=== PATIENT | male | born 1945 | race Caucasian/White ===

== ENCOUNTER 2022-05-17 14:57 | Outpatient (RCR) | payer MEDICARE, OTHER, SELFPAY ==
[2022-05-17] MEDS: SODIUM CHLORIDE 0.9 % (FLUSH) 10 ML SYRINGE IVF (15:35)
[2022-05-17] MEDS: HEPARIN 500 UNIT/5 ML SYRINGE IVF (15:35)
== END 2022-11-13 23:59 | disposition home or self-care (01) ==
LOC: CCIC 14:57
PROVIDERS: Visit Provider Clinical Nurse Specialist
DX: C49.9 Malignant neoplasm of connective and soft tissue, unspecified (principal)
CPT/HCPCS: 99211; J1642

== ENCOUNTER 2024-01-15 06:57 | Day surgery (SDC) | payer MEDICARE, OTHER, SELFPAY ==
--- NOTE | 2024-01-15 07:00 | CRLHL7_ITS ---
For Patients: As a result of the Century Cures Act, medical imaging exams and procedure reports are released immediately into your electronic medical record. You may view this report before your referring provider. If you have questions, please contact your health care provider. Indication: Port placement, history of lung metastases Technique: Chest 1 view Comparison: None Findings/Impression: Cardiovascular and mediastinum: Normal heart size with aortic tortuosity and atherosclerotic calcification. Lungs and pleural space: Lungs are clear. No sign of infiltrate or mass. No sign of pleural effusion. No pneumothorax. Bones and soft tissues: No acute findings. Dictated by Saulo Santos MD @ 01/15/2024 8:28:56 AM (Electronically Signed)
[2024-01-15] MEDS: SODIUM CHLORIDE 0.9 % (FLUSH) 10 ML SYRINGE IVF ×2 (07:05→09:36)
[2024-01-15] MEDS: LACTATED RINGERS 1000 ML 1,000 ML 100 ML IV ×2 (07:05→09:37)
[2024-01-15 07:15] VITALS: BP 132/82; PULSE 67; RESP 16; TEMP 36.5; O2SAT 95; BMI 30.4
--- NOTE | 2024-01-15 08:03 | PM.GSCN ---
History of Present Illness Consult details Date Seen: 01/15/24 Consult date: 01/15/24 Narrative: The patient is a 78-year-old male who is here today for port placement. 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 He has developed recurrence in his lungs and lower extremities. He will be undergoing additional chemotherapy and port placement was requested. He does take Xarelto because of his IVC graft and has been off of this for 3 days. 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) ?C48.0 - Malignant neoplasm of retroperitoneum (ICD-10) Hypertension ?I10 - Essential (primary) hypertension (ICD-10) Surgical History (Updated 01/09/24 @ 12:51 by Corina Flores) History of sinus surgery ?Z98.890 - Other specified postprocedural states (ICD-10) History of vasectomy ?Z98.52 - Vasectomy status (ICD-10) History of colonoscopy ?Z98.890 - Other specified postprocedural states (ICD-10) History of right nephrectomy (04/01/22) ?Z90.5 - Acquired absence of kidney (ICD-10) History of superior vena cava filter placement ?Z95.828 - Presence of other vascular implants and grafts (ICD-10) Family History (Updated 01/09/24 @ 12:53 by Corina Flores) Father Heart disease High blood pressure Social History (Updated 01/13/24 @ 10:15 by Yany Olivarez ~ [facility]) Narrative: with 2 daughters and 2 grandsons. 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 What is your current living situation?: I presently have a place to live Problems where you live: no known problems In the past 12 months, utilities in danger of being shut off: no In past 12 months, lack of transportation kept you from medical appts, meetings, work, or getting things needed for daily living: no In the past 12 mos, have been you worried that your food would run out before you had money to buy more?: never true In the past 12 mos, the food you bought just didn't last and you didn't have money to buy more?: never true Smoking Status: Former smoker How often do you have a drink containing alcohol: never AUDIT-C Alcohol total score: 0 Non-prescribed substance use: denies use Caffeine: Yes How often does anyone, including family, friends and others, physically hurt you: never How often does anyone, including family, friends and others, insult or talk down to you: never How often does anyone, including family, friends and others, threaten you with harm: never How often does anyone, including family, friends and others, scream or curse at you: never Little interest or pleasure in doing things: not at all Feeling down, depressed, or hopeless: not at all Meds Home Medications and Allergies Home Medications ?Medication ?Instructions ?Recorded ?Confirmed ?Type amlodipine 2.5 mg tablet 2.5 mg PO QDAY 11/12/23 01/15/24 History atorvastatin 10 mg tablet 10 mg PO QDAY 11/12/23 01/15/24 History carvedilol 6.25 mg tablet 6.25 mg PO BID 11/12/23 01/15/24 History clonidine 0.2 mg/24 hr weekly 1 patch transdermal QWEEK 11/12/23 01/13/24 History transdermal patch rivaroxaban 20 mg tablet (Xarelto) 20 mg PO QDAY 11/12/23 01/15/24 History acetaminophen 500 mg tablet 500 mg PO Q6H PRN 01/13/24 01/15/24 History (Tylenol Extra Strength) inositol-choline qgv-zlyeojkod-ylq tab PO 01/13/24 01/13/24 History B complex and C 500 mg tablet (Lipo-Flavonoid) melatonin 3 mg capsule 3 mg PO QHS 01/13/24 01/15/24 History pantoprazole 40 mg tablet,delayed 40 mg PO QDAY 01/13/24 01/15/24 History release Allergies Allergy/AdvReac Type Severity Reaction Status Date / Time hayfever AdvReac Intermediate Sneezing Uncoded 01/13/24 10:34 Exam Narrative: Exam Narrative: General: No acute distress CV: Regular rate Chest: Right chest scar noted from prior port. Respiratory: Breathing nonlabored Const: Vital Signs, click to edit/add: Vital Signs - 24 hr 01/15/24 07:15 Temperature 97.7 F Pulse Rate 67 Respiratory Rate 16 Blood Pressure 132/82 Pulse Oximetry 95 Oxygen Delivery Me thod Room Air Results Labs Labs: All other labs normal. Imaging CT scan - chest: report reviewed Additional studies: PET-CT from [facility] on 01/15/2024 was reviewed. Patient is noted to have pulmonary nodules on both the right and left. Chest x-ray done this morning radiology read is pending, however obvious acute airspace disease noted. Progress Note:A&P Assessment and plan (1) History of pulmonary embolism: Status: Acute (2) Leiomyosarcoma: Status: Acute Plan The patient is a 78-year-old male here today for port placement. There are no contraindications to surgery. Risks and benefits were discussed with the patient. He signed informed consent and agreed to proceed.
--- NOTE | 2024-01-15 08:15 | CRLHL7_ITS ---
For Patients: As a result of the Century Cures Act, medical imaging exams and procedure reports are released immediately into your electronic medical record. You may view this report before your referring provider. If you have questions, please contact your health care provider. INDICATION: Port-A-Cath placement TECHNIQUE: Chest 1 view COMPARISON: 01/15/2024 FINDINGS: Placement of left IJ approach Port-A-Cath. The tip is in the distal SVC. No pneumothorax. No pleural effusion. Stable mediastinum. IMPRESSION: Port-A-Cath placement. No pneumothorax. Dictated by Gustavo Pérez MD @ 01/15/2024 1:21:01 PM (Electronically Signed)
--- NOTE | 2024-01-15 08:18 | CRLHL7_ITS ---
For Patients: As a result of the Century Cures Act, medical imaging exams and procedure reports are released immediately into your electronic medical record. You may view this report before your referring provider. If you have questions, please contact your health care provider. Indication: Port-A-Cath placement Technique: One fluoroscopic image of the upper chest. Fluoroscopic time 77.2 seconds. IMPRESSION: Fluoroscopic guidance for Port-A-Cath placement. Dictated by Gustavo Pérez MD @ 01/15/2024 1:22:48 PM (Electronically Signed)
--- NOTE | 2024-01-15 08:18 | PM.GSPRC ---
Operative Note Date of procedure: 01/15/24 Pre-op diagnosis: Recurrent metastatic leiomyosarcoma Post-op diagnosis: Same Type of Procedure: Left IJ port placement with ultrasound fluoroscopic guidance Indications: The patient is a 78-year-old male who previously underwent treatment for a retroperitoneal leiomyosarcoma. He has developed recurrence and chemotherapy is planned. Port placement was requested. He previously had a right IJ port placed at [facility]. Procedure Description: After discussing the risks and benefits of the procedure, the patient signed informed consent.? The operative site was marked and the patient was brought to the operating room and placed on the operating table in supine position.? Care was taken to pad the patient's pressure points.?? The patient was then given sedation by anesthesia.? Ultrasound was used to examine the patient's neck. The right internal jugular on the side of the patient's prior port was not visible. The patient did have a large left internal jugular vein.? The operative site was then prepped and draped in the usual sterile fashion.? A time-out was then performed. The patient's left internal jugular vein was visualized using ultrasound. Local anesthetic was injected into the skin overlying the vein. This was accessed percutaneously using ultrasound guidance. Using Seldinger technique, a guidewire was threaded through the needle. The guidewire that came with the kit went easily into the internal jugular vein, however would not pass into the brachiocephalic vein. This was seen with fluoroscopy. A Glidewire was then obtained and using fluoroscopy I was easily able to then pass the Glidewire down into the superior vena cava. A skin allison was made around the wire. Next, local anesthetic was injected into the skin below the clavicle and along the proposed tract to the neck incision. A skin incision was then made with a 15 blade and a pocket created in the subcutaneous tissue with cautery. A tunneler was then used to thread the catheter from the chest wall pocket to the neck incision. Once this was done fluoroscopy was again brought into the field. Over the wire the tract was dilated using fluoroscopy. The wire and the dilator were then removed leaving the sheath in the vein. Through this, the catheter was threaded. Using fluoroscopy, the catheter was positioned into the distal SVC. The catheter was noted to flush and aspirate easily. The catheter was then connected to the port. The port was placed in the pocket and secured in place with 2 0 Prolene sutures. It was noted to flush and aspirate easily. This was then locked with heparinized saline. The skin was closed with absorbable suture. Sterile dressings were applied. Instrument sponge and needle counts were correct at the end of the case. The patient was woken and taken to the PACU in stable condition. ? The patient tolerated the procedure well. Findings: Left IJ power port placed in the low SVC Anesthesia: MAC Surgeon: Rosalina Campbell MD Estimated blood loss (mL): 5 Condition: stable Disposition: same day
[2024-01-15] MEDS: CEFAZOLIN 2 GM INJ IVP (08:32)
[2024-01-15] MEDS: LIDOCAINE 1% MDV 20 ML INJECTION (08:45)
[2024-01-15] MEDS: BUPIVACAINE 0.5% 30 ML INJECTION (08:45)
--- NOTE | 2024-01-15 08:46 | W.ANESCHARGE ---
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
[2024-01-15] MEDS: 0.9% SODIUM CHL 50 ML VIAL INJECTION (09:03)
[2024-01-15] MEDS: HEPARIN 500 UNIT/5 ML SYRINGE IVF (09:03)
[2024-01-15 09:17] VITALS: BP 127/83; PULSE 73; RESP 16; TEMP 36.3; O2SAT 95
[2024-01-15 09:30] VITALS: BP 75/54; PULSE 64; RESP 16; O2SAT 95
[2024-01-15 09:35] VITALS: BP 89/64; PULSE 66; RESP 16; O2SAT 98
[2024-01-15 09:45] VITALS: BP 105/64; PULSE 59; RESP 16; O2SAT 94
[2024-01-15 10:00] VITALS: BP 111/66; PULSE 64; RESP 16; O2SAT 97
== END 2024-01-15 10:37 | disposition home or self-care (01) ==
PROVIDERS: PCP Internal Medicine; Visit Provider Surgery
PROC: (CPT 36561; principal; 2024-01-15 08:15)
DX: Z45.2 Encounter for adjustment and management of vascular access device (principal); C48.0 Malignant neoplasm of retroperitoneum
CPT/HCPCS: 36561; 00532; 71045; 76000; 76998; 99100; C1769; C1788; J0665; J0690; J1642; J2371; J2405; J2704; J2795; J3010; J7120

== ENCOUNTER 2024-03-25 12:50 | Outpatient (CLI) | payer MEDICARE, OTHER, SELFPAY ==
--- NOTE | 2024-03-25 13:00 | CRLHL7_ITS ---
For Patients: As a result of the Cures Act, medical imaging exams and procedure reports are released immediately into your electronic medical record. You may view this report before your referring provider. If you have questions, please contact your health care provider. INDICATION: Fever TECHNIQUE: Chest radiograph 2 views COMPARISON: 01/15/2024 FINDINGS: Mediastinum: The mediastinum is normal in appearance. The heart silhouette is normal in size and morphology. Left Port-A-Cath is noted without interval change. Lung: Both lungs are unremarkable in appearance. No sign of pleural effusion seen. No pneumothorax is identified. Bone and Soft tissue: Unremarkable for age. IMPRESSION: 1. No acute cardiopulmonary disease is seen. Dictated by Paul Santo MD @ 03/25/2024 7:49:48 PM Dictated by: Paul Santo MD @ 03/25/2024 19:49:50 (Electronically Signed)
--- NOTE | 2024-03-25 16:00 | PE_ITS ---
[facility] [address] [facility] [address] Phone:?[phone] Fax:?[phone] Referring Physician Information: Aleksandra Leavitt M.D. [address] [facility] [address] Phone:?[phone] Fax:?[phone] Patient:?Ryan Mccain D.O.B:?1945 Sex:?Male Phone:?[phone] [facility] MRN:?[id number] Exam Date:?03/25/2024 EXAM:?PET/CT EYES TO THIGHS, CANCER RESTAGING CLINICAL INFORMATION: Leiomyosarcoma, evaluate treatment response TECHNICAL INFORMATION: Helical acquisition of data was obtained from the orbits to the upper thighs with reconstruction of 3.75 mm thick images at 3.[address] data was used for attenuation correction. PET scanning was performed through the same anatomic range 60 minutes following administration of 14.5 mCi of 18-FDG delivered intravenously. The patient's glucose at the time of the injection was 108 mg/dL. PET, CT and PET/CT fusion images are interpreted using a computer viewing workstation. PET, CT and PET/CT fusion images were archived and saved in the patient's permanent medical record. COMPARISON: PET/CT 12/25/2023 INTERPRETATION: Mediastinal blood pool activity: 2.88 Background liver parenchymal uptake: 3.79 Head and Neck: There are no abnormal hypermetabolic foci within the head or neck. There is physiologic uptake in the intracranial soft tissues. Chest: Interval increase in size of the nodular opacity in the lingula measuring 2.3 x 1.9 cm (series 202 image 133), previously measuring 1.9 x 1.0 cm, with an SUV max of 9.95, previously 12.3. Although limited by motion artifact, there appears to be similar size of a nodule in the right upper lobe measuring 4 mm (series 202 image 106), previously measuring 3 to 4 mm, with an SUV max of 3.85. A 4 mm nodule in the right upper lobe (series 202 image 101) has increased in size from the comparison exam when it measured 2 to 3 mm. Similar small left upper lobe nodule measuring 3 mm (series 2 image 94) without significant radiotracer avidity. Diffuse groundglass opacities in the lungs. No FDG avid lymphadenopathy. Coronary artery atherosclerosis. Atherosclerosis of the thoracic aorta. No pericardial effusion. Abdomen and Pelvis: Redemonstrated postsurgical changes in the right retroperitoneal region with IVC graft reconstruction. Postsurgical changes of right nephrectomy. No definite findings to suggest local recurrence of disease. There is physiologic excretion of radiotracer in the urine and bowel. Aortoiliac atherosclerosis. Small amount of fluid in the dependent pelvis. The bladder is incompletely distended limiting its evaluation. Skeleton, Musculature, and Integument: Redemonstrated lesion in the left lateral thigh measuring roughly 4.5 x 2.6 cm, previously measuring 3.9 x 1.8 cm. There is central photopenia with peripheral FDG uptake and an SUV max of 15.69, previously 25. Redemonstrated intramuscular lesion in the left back paraspinal soft tissues measuring 3.3 x 2.8 cm (series 202 image 182), previously measuring approximately 2.3 x 2.5 cm. The lesion is centrally photopenic with peripheral FDG uptake and an SUV max of 13.37, previously 16.9 A small lesion in the right posterolateral chest wall measures 2.3 x 1.3 cm (series 202 image 168), previously measuring 2.0 x 1.4 cm, with an SUV max of 6.18. Lesion in the region of the right piriformis measures approximately 2.7 x 1.5 cm (series 202 image 240), previously measuring approximately 2.1 x 1.3 cm, with an SUV max of 11.23. No new lesions are identified. CONCLUSION: * Overall mixed response of previously described pulmonary nodules and intramuscular lesions as described below. * Interval increase in size of the dominant nodular opacity in the lingula but with interval decreased metabolic activity. A nodule in the right upper lobe is similar in size but now demonstrates mild FDG avidity. Slight interval increase in size of a right upper lobe nodule without associated radiotracer avidity. * Scattered FDG avid intramuscular lesions as described above. Several lesions have slightly increased in size but with decreased metabolic activity. Central photopenia of several of the lesions which likely reflects central necrosis. * No evidence of new hypermetabolic metastasis. Electronically signed on 03/29/2024 10:33:00 AM by Fred Doty D.O
--- NOTE | 2024-03-30 09:28 | W.ED.EKGINT ---
EKG Interpretation EKG Data Attestation: I personally reviewed and interpreted this ECG as follows: Date of EKG Tracin03/25/24 EKG interpretation date: 03/30/24 EKG interpretation time: 09:28 Prior EKG tracings: available for review Interpretation: EKG interpretation from above is noted. Indication was chemotherapeutic treatment, rhythm is sinus, with a ventricular rate of 81. Right bundle-branch block configuration is noted. With mild left axis deviation. QRS is prolonged at 0.132 milliseconds. QT is 402 milliseconds, QTC is 466 milliseconds. In comparison to old EKG from 04/30/2023 is done Assessment: Abnormal EKG with normal sinus rhythm, right bundle-branch block with left axis deviation, no appreciable changes from previous EKG noted
== END 2024-03-25 12:51 | disposition home or self-care (01) ==
LOC: RAD 12:50
PROVIDERS: PCP Internal Medicine; Visit Provider Internal Medicine Hematology & Oncology
DX: C49.3 Malignant neoplasm of connective and soft tissue of thorax (principal); R91.8 Other nonspecific abnormal finding of lung field; R50.9 Fever, unspecified; I95.9 Hypotension, unspecified
CPT/HCPCS: 36591; 71046; 78815; 80048; 81001; 85025; 87040; 93005; 93010; 96360; G0463; A9552; J7030

== ENCOUNTER 2024-05-24 07:45 | Outpatient (RCR) | payer MEDICARE, OTHER, SELFPAY ==
--- NOTE | 2024-01-14 11:35 | URNOTE ---
Prior auth is not requied for Gemcitabine (J9201), Docetaxel (J9171), Pegfilgrastim (J2506) or biosimilar, Fulphila (Q5108). Services are based on medical necessity and follow medicare guidelines.
[2024-01-26] MEDS: SODIUM CHLORIDE 0.9 % (FLUSH) 10 ML SYRINGE IVF (08:55)
[2024-01-26 09:07] LABS: Basophils Absolute Auto 0.02 K/uL (0.00-0.30); Basophils Percent Auto 0.3 % (0.0-3.0); Eosinophils Absolute Auto 0.15 K/uL (0.00-0.50); Eosinophils Percent Auto 2.2 % (0.0-7.0); Hematocrit 40.5 % (37.0-53.0); Hemoglobin* 13.6 gm/dL (13.5-17.5); Immature Granulocytes Abs Auto 0.03 K/uL (0.00-0.30); Immature Granulocytes Pct Auto 0.4 %; Lymphocytes Absolute Auto 1.35 K/uL (0.90-2.90); Mean Corpuscular HGB Conc 34 gm/dL (32-36); Mean Corpuscular Hemoglobin 30 pg (26-34); Mean Corpuscular Volume 88 fL (80-100); Monocytes Percent Auto 5.5 % (0.0-11.0); Neutrophils Absolute Auto 4.83 K/uL (1.7-7.0); Neutrophils Percent Auto 71.6 % (42.0-72.0); Platelet Count* 167 K/uL (140-440); RDW Coefficient of Variation % 12.7 % (11.5-15.5); Slide Review Reflex No; White Blood Count* 6.75 K/uL (4.50-11.00)
[2024-01-26 09:21] LABS: Albumin* 4.6 g/dL (3.3-5.0); Chloride* 103 mmol/L (96-114)
[2024-01-26 09:22] LABS: Sodium* 136 mmol/L (135-149)
[2024-01-26 09:24] LABS: Anion Gap 7 mEq/L (7-15); Carbon Dioxide* 26 mmol/L (20-32); Creatinine* 1.5 mg/dL (0.5-1.5); Est. Creatinine Clearance* 37.81; Estimated Glomerular Filt Rate 48 ml/min
[2024-01-26 09:25] LABS: Alanine Aminotransferase* 18 U/L (4-50); Alkaline Phosphatase* 66 U/L (40-150); Aspartate Amino Transferase* 19 U/L (12-35); Bilirubin Total* 0.7 mg/dL (0.1-1.5); Blood Urea Nitrogen* 18 mg/dL (7-30); Calcium* 9.3 mg/dL (8.4-10.6); Glucose* 121 mg/dL (60-115)
[2024-01-26 10:27] VITALS: BP 153/70; PULSE 68; RESP 16; TEMP 36.7; O2SAT 96
[2024-01-26] MEDS: 0.9 % SODIUM CHLORIDE 250 ml IV (10:30)
[2024-01-26] MEDS: ONDANSETRON 2 MG/ML inj 8 MG IVP (10:31)
[2024-01-26] MEDS: dexAMETHasone 10 MG in 0.9 % SODIUM CHLORIDE 100 ml 100 ML 404 MG IVPB (10:34)
[2024-01-26] MEDS: HEPARIN 500 UNIT/5 ML SYRINGE IVF (13:00)
--- NOTE | 2024-01-26 14:55 | PC.SOCIAL ---
Social work: Met with pt at his request for resources for transportation. Pt states he drives but his , Annmarie, does not. He is planning to drive to and from the [facility] appointments, but if he is unable to drive, he is interested in other options. Discussed the private pay options including the [employer], [facility] [employer] and the [facility]. Suggested pt can call his [email or web address] insurance customer service to see if they provide Medical Transportation. When insurance covers the transportation they sometimes contract with other transport agencies that are not an option for private pay in this area. Emailed the transportation list to pt who was appreciative of information provided. Pt's distress thermometer score was 1 with no difficulties indicated. Provided pt with contact information for this social services technician in case there are additional concerns or resource needs in the future.
--- NOTE | 2024-01-27 11:35 | ONC.NURNOTE ---
New treatment start teaching done Friday01/26/24 with patient and : reviewed possible side effects of taxotere and Gemzar, self care at home, after hours management, ER with fever over 100.5, reviewed contents of chemotherapy information binder, discussed SS referral done for today for transportation help reviewed other supportive care options- dietitian and CRP- patient denies need now reviewed chemo schedule and home antiemetics and post treatment dexamethasone chemo schedule provided questions addressed about fatigue and taste changes consents and HELEN reviewed and signed
[2024-02-02 08:47] VITALS: BP 129/76; PULSE 79; RESP 16; TEMP 36.2; O2SAT 97
[2024-02-02] MEDS: SODIUM CHLORIDE 0.9 % (FLUSH) 10 ML SYRINGE IVF (09:00)
[2024-02-02 09:12] LABS: Eosinophils Absolute Auto 0.06 K/uL (0.00-0.50); Eosinophils Percent Auto 1.2 % (0.0-7.0); Hematocrit 36.4 % (37.0-53.0); Hemoglobin* 12.3 gm/dL (13.5-17.5); Immature Granulocytes Abs Auto 0.02 K/uL (0.00-0.30); Immature Granulocytes Pct Auto 0.4 %; Lymphocytes Absolute Auto 1.07 K/uL (0.90-2.90); Lymphocytes Percent Auto 21.2 % (20-44); Mean Corpuscular HGB Conc 34 gm/dL (32-36); Mean Corpuscular Hemoglobin 30 pg (26-34); Mean Corpuscular Volume 88 fL (80-100); Monocytes Percent Auto 6.7 % (0.0-11.0); Neutrophils Absolute Auto 3.56 K/uL (1.7-7.0); Neutrophils Percent Auto 70.5 % (42.0-72.0); Platelet Count* 119 K/uL (140-440); RDW Coefficient of Variation % 12.3 % (11.5-15.5); Red Blood Count 4.12 m/uL (4.30-5.90); White Blood Count* 5.05 K/uL (4.50-11.00)
[2024-02-02 09:20] LABS: Slide Review Reflex No
[2024-02-02 09:25] LABS: Chloride* 104 mmol/L (96-114); Sodium* 137 mmol/L (135-149)
[2024-02-02 09:27] LABS: Creatinine* 1.7 mg/dL (0.5-1.5); Est. Creatinine Clearance* 33.36; Estimated Glomerular Filt Rate 41 ml/min
[2024-02-02 09:28] LABS: Alanine Aminotransferase* 31 U/L (4-50); Alkaline Phosphatase* 64 U/L (40-150); Anion Gap 9 mEq/L (7-15); Aspartate Amino Transferase* 24 U/L (12-35); Bilirubin Total* 0.6 mg/dL (0.1-1.5); Blood Urea Nitrogen* 21 mg/dL (7-30); Carbon Dioxide* 24 mmol/L (20-32); Glucose* 104 mg/dL (60-115); Total Protein* 6.7 g/dL (6.0-8.3)
[2024-02-02] MEDS: ONDANSETRON 2 MG/ML inj 8 MG IVP (10:37)
[2024-02-02] MEDS: 0.9 % SODIUM CHLORIDE 500 ML IV (10:37)
[2024-02-02] MEDS: dexAMETHasone 10 MG in 0.9 % SODIUM CHLORIDE 100 ml 100 ML 404 MG IVPB (10:41)
[2024-02-02] MEDS: HEPARIN 500 UNIT/5 ML SYRINGE IVF (14:40)
--- NOTE | 2024-02-02 15:45 | ONC.NURNOTE ---
Patient in clinic today for C1D8 Gemzar/Taxotere. Patient's lab results showed creatinine at 1.7 today. Up from 1.5 last week. Patient only has 1 kidney. Reports he is urinating regularly. No swelling in his lower extremities and weight is stable. RN spoke with Dr. Leavitt who would like patient to have and extra 500 cc of IVF today and would like patient to have a CBC and CMP checked next week. 500 cc administered and patient scheduled for labs on 02/08.
[2024-02-03 14:38] VITALS: BP 142/73; PULSE 75; RESP 16; TEMP 36.6; O2SAT 98
[2024-02-03] MEDS: PEGFILGRASTIM-JMDB (Fulphila) 6 MG/0.6 ML SUBCUT (14:43)
[2024-02-09 11:04] LABS: Basophils Percent Auto 0.1 % (0.0-3.0); Eosinophils Percent Auto 0.8 % (0.0-7.0); Hemoglobin* 13.3 gm/dL (13.5-17.5); Lymphocytes Percent Auto 11.9 % (20-44); Mean Corpuscular HGB Conc 34 gm/dL (32-36); Mean Corpuscular Hemoglobin 30 pg (26-34); Mean Corpuscular Volume 88 fL (80-100); Monocytes Percent Auto 9.6 % (0.0-11.0); Neutrophils Percent Auto 70.6 % (42.0-72.0); Platelet Count* 60 K/uL (140-440); RDW Coefficient of Variation % 12.6 % (11.5-15.5); Red Blood Count 4.44 m/uL (4.30-5.90)
[2024-02-09 11:12] LABS: Slide Review Reflex Yes
[2024-02-09] MEDS: SODIUM CHLORIDE 0.9 % (FLUSH) 10 ML SYRINGE IVF (11:12)
[2024-02-09] MEDS: HEPARIN 500 UNIT/5 ML SYRINGE IVF (11:12)
[2024-02-09 11:16] LABS: Albumin* 3.8 g/dL (3.3-5.0); Chloride* 102 mmol/L (96-114); Potassium* 3.9 mmol/L (3.6-5.1); Sodium* 134 mmol/L (135-149)
[2024-02-09 11:19] LABS: Alanine Aminotransferase* 25 U/L (4-50); Alkaline Phosphatase* 98 U/L (40-150); Anion Gap 6 mEq/L (7-15); Aspartate Amino Transferase* 18 U/L (12-35); Bilirubin Total* 0.5 mg/dL (0.1-1.5); Blood Urea Nitrogen* 24 mg/dL (7-30); Calcium* 8.9 mg/dL (8.4-10.6); Carbon Dioxide* 26 mmol/L (20-32); Creatinine* 1.5 mg/dL (0.5-1.5); Est. Creatinine Clearance* 37.81; Estimated Glomerular Filt Rate 48 ml/min; Glucose* 133 mg/dL (60-115); Total Protein* 6.2 g/dL (6.0-8.3)
[2024-02-09 11:32] LABS: Slide Review Acceptable Review (Acceptable)
[2024-02-16 09:02] LABS: Basophils Percent Auto 1.4 % (0.0-3.0); Eosinophils Percent Auto 0.6 % (0.0-7.0); Hematocrit 36.1 % (37.0-53.0); Immature Granulocytes Pct Auto 3.9 %; Mean Corpuscular HGB Conc 33 gm/dL (32-36); Mean Corpuscular Hemoglobin 30 pg (26-34); Mean Corpuscular Volume 91 fL (80-100); Monocytes Percent Auto 5.8 % (0.0-11.0); Neutrophils Percent Auto 77.3 % (42.0-72.0); Platelet Count* 309 K/uL (140-440); RDW Coefficient of Variation % 14.2 % (11.5-15.5); Red Blood Count 3.98 m/uL (4.30-5.90); White Blood Count* 14.04 K/uL (4.50-11.00)
[2024-02-16 09:06] LABS: Slide Review Reflex No
[2024-02-16 09:29] LABS: Albumin* 3.7 g/dL (3.3-5.0); Chloride* 104 mmol/L (96-114); Potassium* 3.6 mmol/L (3.6-5.1); Sodium* 135 mmol/L (135-149)
[2024-02-16 09:32] LABS: Alanine Aminotransferase* 24 U/L (4-50); Alkaline Phosphatase* 102 U/L (40-150); Aspartate Amino Transferase* 23 U/L (12-35); Bilirubin Total* 0.5 mg/dL (0.1-1.5); Blood Urea Nitrogen* 16 mg/dL (7-30); Calcium* 8.4 mg/dL (8.4-10.6); Glucose* 107 mg/dL (60-115); Total Protein* 6.2 g/dL (6.0-8.3)
[2024-02-16 09:46] LABS: Anion Gap 7 mEq/L (7-15); Carbon Dioxide* 24 mmol/L (20-32); Creatinine* 1.4 mg/dL (0.5-1.5); Est. Creatinine Clearance* 39.05; Estimated Glomerular Filt Rate 52 ml/min
[2024-02-16] MEDS: ONDANSETRON 2 MG/ML inj 8 MG IVP (10:17)
[2024-02-16] MEDS: SODIUM CHLORIDE 0.9 % (FLUSH) 10 ML SYRINGE IVF ×2 (10:17→12:29)
[2024-02-16] MEDS: 0.9 % SODIUM CHLORIDE 250 ml IV (10:17)
[2024-02-16] MEDS: dexAMETHasone 10 MG in 0.9 % SODIUM CHLORIDE 100 ml 100 ML 404 MG IVPB (10:26)
[2024-02-16] MEDS: HEPARIN 500 UNIT/5 ML SYRINGE IVF (12:29)
[2024-02-23 08:51] VITALS: BP 130/75; PULSE 97; RESP 14; TEMP 36.1; O2SAT 97
[2024-02-23 09:21] LABS: Basophils Percent Auto 0.5 % (0.0-3.0); Eosinophils Percent Auto 2.3 % (0.0-7.0); Hematocrit 32.6 % (37.0-53.0); Hemoglobin* 11.2 gm/dL (13.5-17.5); Immature Granulocytes Pct Auto 1.4 %; Lymphocytes Percent Auto 19.8 % (20-44); Mean Corpuscular HGB Conc 34 gm/dL (32-36); Mean Corpuscular Hemoglobin 31 pg (26-34); Mean Corpuscular Volume 89 fL (80-100); Monocytes Percent Auto 6.3 % (0.0-11.0); Neutrophils Percent Auto 69.7 % (42.0-72.0); Platelet Count* 240 K/uL (140-440); RDW Coefficient of Variation % 13.7 % (11.5-15.5); Red Blood Count 3.66 m/uL (4.30-5.90); White Blood Count* 4.29 K/uL (4.50-11.00)
[2024-02-23 09:23] LABS: Slide Review Reflex No
[2024-02-23 09:33] LABS: Albumin* 3.8 g/dL (3.3-5.0); Chloride* 101 mmol/L (96-114); Potassium* 3.8 mmol/L (3.6-5.1); Sodium* 134 mmol/L (135-149)
[2024-02-23 09:35] LABS: Creatinine* 1.4 mg/dL (0.5-1.5); Est. Creatinine Clearance* 39.05; Estimated Glomerular Filt Rate 52 ml/min
[2024-02-23 09:36] LABS: Alanine Aminotransferase* 28 U/L (4-50); Alkaline Phosphatase* 72 U/L (40-150); Anion Gap 7 mEq/L (7-15); Aspartate Amino Transferase* 18 U/L (12-35); Bilirubin Total* 0.6 mg/dL (0.1-1.5); Blood Urea Nitrogen* 16 mg/dL (7-30); Carbon Dioxide* 26 mmol/L (20-32); Glucose* 107 mg/dL (60-115); Total Protein* 6.2 g/dL (6.0-8.3)
[2024-02-23 09:37] LABS: Calcium* 9.2 mg/dL (8.4-10.6)
[2024-02-23] MEDS: ONDANSETRON 2 MG/ML inj 8 MG IVP (10:09)
[2024-02-23] MEDS: SODIUM CHLORIDE 0.9 % (FLUSH) 10 ML SYRINGE IVF (10:09)
[2024-02-23] MEDS: 0.9 % SODIUM CHLORIDE 250 ml IV (10:09)
[2024-02-23] MEDS: dexAMETHasone 10 MG in 0.9 % SODIUM CHLORIDE 100 ml 100 ML 404 MG IVPB (10:21)
[2024-02-24] MEDS: PEGFILGRASTIM-JMDB (Fulphila) 6 MG/0.6 ML SUBCUT (13:05)
[2024-02-24 13:22] VITALS: BP 117/69; PULSE 72; RESP 16; TEMP 36.6; O2SAT 96
--- NOTE | 2024-02-26 13:05 | ONC.NURNOTE ---
Ryan is planning to return to [place] for the winter following Cycle #4 on 03/29 and 04/05 Ryan is looking to coordinate care for transfer to [place], and if needed plans to start C#5 in [place] - family is requesting the name of the provider that Dr Veliz had recommended specifications writer will follow up with Dr Leavitt
[2024-03-08] MEDS: SODIUM CHLORIDE 0.9 % (FLUSH) 10 ML SYRINGE IVF (08:10)
[2024-03-08 08:21] LABS: Eosinophils Percent Auto 0.7 % (0.0-7.0); Hematocrit 30.8 % (37.0-53.0); Hemoglobin* 10.3 gm/dL (13.5-17.5); Lymphocytes Percent Auto 8.8 % (20-44); Mean Corpuscular HGB Conc 33 gm/dL (32-36); Mean Corpuscular Hemoglobin 31 pg (26-34); Mean Corpuscular Volume 91 fL (80-100); Monocytes Percent Auto 5.9 % (0.0-11.0); Neutrophils Percent Auto 80.6 % (42.0-72.0); Platelet Count* 313 K/uL (140-440); Red Blood Count 3.37 m/uL (4.30-5.90); White Blood Count* 14.51 K/uL (4.50-11.00)
[2024-03-08 08:27] VITALS: BP 107/68; PULSE 93; RESP 16; TEMP 36.2; O2SAT 94
[2024-03-08 08:27] LABS: Slide Review Reflex No
[2024-03-08 08:34] LABS: Albumin* 3.8 g/dL (3.3-5.0); Chloride* 99 mmol/L (96-114); Potassium* 3.8 mmol/L (3.6-5.1); Sodium* 132 mmol/L (135-149)
[2024-03-08 08:36] LABS: Creatinine* 1.6 mg/dL (0.5-1.5); Est. Creatinine Clearance* 35.44; Estimated Glomerular Filt Rate 44 ml/min
[2024-03-08 08:37] LABS: Alanine Aminotransferase* 19 U/L (4-50); Alkaline Phosphatase* 100 U/L (40-150); Anion Gap 8 mEq/L (7-15); Aspartate Amino Transferase* 26 U/L (12-35); Bilirubin Total* 0.7 mg/dL (0.1-1.5); Blood Urea Nitrogen* 18 mg/dL (7-30); Calcium* 9.3 mg/dL (8.4-10.6); Carbon Dioxide* 25 mmol/L (20-32); Glucose* 128 mg/dL (60-115); Total Protein* 6.3 g/dL (6.0-8.3)
[2024-03-08] MEDS: 0.9 % SODIUM CHLORIDE 500 ML IV (09:27)
[2024-03-08] MEDS: ONDANSETRON 2 MG/ML inj 8 MG IVP (09:28)
[2024-03-08] MEDS: dexAMETHasone 10 MG/ML inj IVP (09:33)
[2024-03-08] MEDS: HEPARIN 500 UNIT/5 ML SYRINGE IVF (12:08)
[2024-03-15] MEDS: SODIUM CHLORIDE 0.9 % (FLUSH) 10 ML SYRINGE IVF ×2 (08:40→13:35)
[2024-03-15 08:42] VITALS: BP 109/64; PULSE 82; RESP 16; TEMP 36.4; O2SAT 96
[2024-03-15 08:52] LABS: Basophils Absolute Auto 0.04 K/uL (0.00-0.30); Basophils Percent Auto 0.7 % (0.0-3.0); Eosinophils Absolute Auto 0.28 K/uL (0.00-0.50); Eosinophils Percent Auto 5.2 % (0.0-7.0); Hematocrit 25.9 % (37.0-53.0); Hemoglobin* 8.6 gm/dL (13.5-17.5); Immature Granulocytes Abs Auto 0.14 K/uL (0.00-0.30); Immature Granulocytes Pct Auto 2.6 %; Lymphocytes Percent Auto 12.7 % (20-44); Mean Corpuscular HGB Conc 33 gm/dL (32-36); Mean Corpuscular Hemoglobin 30 pg (26-34); Mean Corpuscular Volume 90 fL (80-100); Monocytes Percent Auto 7.7 % (0.0-11.0); Neutrophils Absolute Auto 3.85 K/uL (1.7-7.0); Neutrophils Percent Auto 71.1 % (42.0-72.0); Platelet Count* 201 K/uL (140-440); RDW Coefficient of Variation % 15.4 % (11.5-15.5); Red Blood Count 2.88 m/uL (4.30-5.90); Slide Review Reflex No; White Blood Count* 5.42 K/uL (4.50-11.00)
[2024-03-15 09:15] LABS: Chloride* 97 mmol/L (96-114)
[2024-03-15 09:16] LABS: Albumin* 3.5 g/dL (3.3-5.0); Sodium* 131 mmol/L (135-149)
[2024-03-15 09:18] LABS: Bilirubin Total* 0.6 mg/dL (0.1-1.5); Creatinine* 1.4 mg/dL (0.5-1.5); Est. Creatinine Clearance* 40.51; Estimated Glomerular Filt Rate 52 ml/min
[2024-03-15 09:19] LABS: Alanine Aminotransferase* 33 U/L (4-50); Alkaline Phosphatase* 73 U/L (40-150); Anion Gap 8 mEq/L (7-15); Aspartate Amino Transferase* 21 U/L (12-35); Blood Urea Nitrogen* 16 mg/dL (7-30); Calcium* 9.1 mg/dL (8.4-10.6); Carbon Dioxide* 26 mmol/L (20-32); Glucose* 110 mg/dL (60-115)
[2024-03-15] MEDS: ONDANSETRON 2 MG/ML inj 8 MG IVP (10:26)
[2024-03-15] MEDS: dexAMETHasone 10 MG/ML inj IVP (10:30)
--- NOTE | 2024-03-15 10:39 | ONC.NURNOTE ---
Patient in clinic today for C3D8 Gemzar/Taxotere. Patient's Hgb resulted at 8.6 today (was 10.3) 1 week ago. On assessment patient reports that since he got his COVID and Flu shot on 03/05 he just can't get his energy back. He also reports being SOB on exertion and having some lightheadedness with movements. He denies any S/S of bleeding. RN spoke with Dr. Leavitt, patient ok for treatment today but she would like an Occult checked, patient to get 1 unit of PRBC, and to have labs checked next week. RN updated patient with Dr. Leavitt's recommendations. He is ok with the plan. Patient will get blood transfusion tomorrow 03/16 when he is in for his injection. Type and cross done today. Patient sent home with instructions and kit to collect Occult Stool sample. Will set up blood draw for next week.
--- NOTE | 2024-03-15 13:11 | PC.NURSE ---
Pt present at [facility] for chemo today. Hgb 8.6. MD ordered fecal occult blood to rule out GI bleed.
[2024-03-15] MEDS: HEPARIN 500 UNIT/5 ML SYRINGE IVF (13:35)
[2024-03-16 11:21] VITALS: BP 123/83; PULSE 78; RESP 16; TEMP 36; O2SAT 99
[2024-03-16 11:41] VITALS: BP 118/73; PULSE 76; RESP 16; TEMP 35.9; O2SAT 95
[2024-03-16 12:11] VITALS: BP 129/71; PULSE 74; RESP 16; TEMP 36.4; O2SAT 94
[2024-03-16 12:41] VITALS: BP 125/72; PULSE 77; RESP 16; TEMP 35.9; O2SAT 95
[2024-03-16 12:58] LABS: Fecal Occult Blood* Positive (Negative)
[2024-03-16 13:25] VITALS: BP 122/68; PULSE 77; RESP 16; TEMP 36.1; O2SAT 98
[2024-03-16 14:38] VITALS: BP 131/72; PULSE 83; RESP 16; TEMP 36.2; O2SAT 95
[2024-03-16] MEDS: PEGFILGRASTIM-JMDB (Fulphila) 6 MG/0.6 ML SUBCUT (14:43)
[2024-03-16] MEDS: HEPARIN 500 UNIT/5 ML SYRINGE IVF (14:47)
[2024-03-16] MEDS: SODIUM CHLORIDE 0.9 % (FLUSH) 10 ML SYRINGE IVF (14:47)
--- NOTE | 2024-03-18 10:26 | ONC.NURNOTE ---
Pt results came back positive for fecal occult blood. Reviewed by Dr. Leavitt. Order placed by Dr. Leavitt for diagnostic colonoscopy. Pt's last colonoscopy was 02/2019, pt due again. [employer] Developer called pt to update him on Dr. Leavitt's recommendations and the endoscopy dept of the [facility] will reach out to patient to schedule.
[2024-03-23 09:30] VITALS: BP 107/70; PULSE 95; RESP 16; TEMP 36.1; O2SAT 95
[2024-03-23 09:47] LABS: Basophils Percent Auto 0.1 % (0.0-3.0); Eosinophils Percent Auto 0.3 % (0.0-7.0); Hemoglobin* 10.3 gm/dL (13.5-17.5); Immature Granulocytes Pct Auto 15.4 %; Lymphocytes Percent Auto 4.4 % (20-44); Mean Corpuscular HGB Conc 33 gm/dL (32-36); Mean Corpuscular Hemoglobin 30 pg (26-34); Mean Corpuscular Volume 91 fL (80-100); Monocytes Percent Auto 4.1 % (0.0-11.0); Neutrophils Percent Auto 75.7 % (42.0-72.0); Platelet Count* 60 K/uL (140-440); Red Blood Count 3.41 m/uL (4.30-5.90)
[2024-03-23 10:40] LABS: Slide Review Reflex Yes; White Blood Count* 31.25 K/uL (4.50-11.00)
[2024-03-23 10:41] LABS: Slide Review Acceptable Review (Acceptable)
[2024-03-23] MEDS: SODIUM CHLORIDE 0.9 % (FLUSH) 10 ML SYRINGE IVF (11:00)
[2024-03-23] MEDS: HEPARIN 500 UNIT/5 ML SYRINGE IVF (11:00)
--- NOTE | 2024-03-23 11:34 | ONC.NURNOTE ---
Pt here for cbc recheck. Hgb 10.3, VSS. WBC 31. 25, results reported to Berkley Moreno APRN. Pt denies any new cough, fever, chills, signs of infection. Pt did receive fulphilia on 03/16/24.
[2024-03-25 11:47] LABS: Basophils Percent Auto 0.3 % (0.0-3.0); Eosinophils Percent Auto 0.2 % (0.0-7.0); Hematocrit 29.4 % (37.0-53.0); Hemoglobin* 9.8 gm/dL (13.5-17.5); Immature Granulocytes Pct Auto 7.7 %; Lymphocytes Percent Auto 4.6 % (20-44); Mean Corpuscular HGB Conc 33 gm/dL (32-36); Mean Corpuscular Hemoglobin 30 pg (26-34); Mean Corpuscular Volume 91 fL (80-100); Neutrophils Percent Auto 83.2 % (42.0-72.0); Platelet Count* 120 K/uL (140-440); RDW Coefficient of Variation % 17.2 % (11.5-15.5); Red Blood Count 3.25 m/uL (4.30-5.90)
[2024-03-25 12:01] LABS: Chloride* 93 mmol/L (96-114); Potassium* 3.9 mmol/L (3.6-5.1); Sodium* 127 mmol/L (135-149)
[2024-03-25 12:04] LABS: Anion Gap 9 mEq/L (7-15); Blood Urea Nitrogen* 19 mg/dL (7-30); Carbon Dioxide* 25 mmol/L (20-32); Creatinine* 1.4 mg/dL (0.5-1.5); Est. Creatinine Clearance* 40.51; Estimated Glomerular Filt Rate 52 ml/min; Glucose* 101 mg/dL (60-115)
[2024-03-25 12:05] LABS: Calcium* 8.7 mg/dL (8.4-10.6)
[2024-03-25 12:21] LABS: Slide Review Reflex Yes; White Blood Count* 25.46 K/uL (4.50-11.00)
[2024-03-25 12:22] LABS: Slide Review Acceptable Review (Acceptable)
[2024-03-25 13:29] LABS: Appearance Urine Clear (Clear); Bilirubin Urine Negative (Negative); Blood Urine Negative (Negative); Color Urine Yellow (Yellow); Glucose Urine Negative (Negative); Ketones Urine Negative (Negative); Leukocyte Esterase Urine Negative (Negative); Nitrite Urine Negative (Negative); Protein Urine Negative (Negative); RBC Urine 0-2 (0-2); Specific Gravity Urine <= 1.005 (1.000-1.030); WBC Urine 0-2 (0-5)
[2024-03-25] MEDS: SODIUM CHLORIDE 0.9 % (FLUSH) 10 ML SYRINGE IVF (14:54)
[2024-03-25] MEDS: 0.9 % SODIUM CHLORIDE 500 ML 500 ML 1000 ML IV ×2 (15:00→15:35)
--- NOTE | 2024-03-26 08:45 | PC.NURSE ---
Jessica Degroot PA-C noted pt's scan from yesterday. Scripts called in for antibiotics and steroids and recommended pt do a covid test at home. Called and pt understands.
[2024-03-29] MEDS: SODIUM CHLORIDE 0.9 % (FLUSH) 10 ML SYRINGE IVF ×3 (08:10→10:50)
[2024-03-29 08:26] LABS: Basophils Percent Auto 0.2 % (0.0-3.0); Hematocrit 28.5 % (37.0-53.0); Hemoglobin* 9.3 gm/dL (13.5-17.5); Immature Granulocytes Pct Auto 3.5 %; Lymphocytes Percent Auto 5.6 % (20-44); Mean Corpuscular HGB Conc 33 gm/dL (32-36); Mean Corpuscular Hemoglobin 30 pg (26-34); Mean Corpuscular Volume 92 fL (80-100); Monocytes Percent Auto 5.5 % (0.0-11.0); Neutrophils Percent Auto 85.2 % (42.0-72.0); Platelet Count* 425 K/uL (140-440); White Blood Count* 20.14 K/uL (4.50-11.00)
[2024-03-29 08:28] LABS: Slide Review Reflex No
[2024-03-29 08:40] LABS: Albumin* 3.4 g/dL (3.3-5.0); Chloride* 100 mmol/L (96-114)
[2024-03-29 08:41] LABS: Potassium* 3.6 mmol/L (3.6-5.1); Sodium* 133 mmol/L (135-149)
[2024-03-29 08:43] LABS: Alkaline Phosphatase* 94 U/L (40-150); Anion Gap 9 mEq/L (7-15); Aspartate Amino Transferase* 22 U/L (12-35); Bilirubin Total* 0.3 mg/dL (0.1-1.5); Blood Urea Nitrogen* 25 mg/dL (7-30); Carbon Dioxide* 24 mmol/L (20-32); Creatinine* 1.5 mg/dL (0.5-1.5); Est. Creatinine Clearance* 37.81; Estimated Glomerular Filt Rate 48 ml/min; Glucose* 111 mg/dL (60-115); Total Protein* 5.7 g/dL (6.0-8.3)
[2024-03-29 08:44] LABS: Alanine Aminotransferase* 25 U/L (4-50); Calcium* 9.3 mg/dL (8.4-10.6)
[2024-03-29 09:18] LABS: C.Difficile Negative (Negative); CDIFFEPI 027 PRESUMPTIVE NEGATIVE (Negative)
[2024-03-29] MEDS: HEPARIN 500 UNIT/5 ML SYRINGE IVF (10:50)
[2024-04-01 16:26] LABS: Adenovirus PCR Not Detected; Astrovirus PCR Not Detected; Campylobacter PCR Not Detected; Cryptosporidium PCR Not Detected; Cyclospora cayetanensis PCR Not Detected; Entamoeba histolytica PCR Not Detected; Enteroaggregative E coli PCR Not Detected; Enteropathogenic E coli PCR Not Detected; Enterotoxigenic E coli PCR Not Detected; Giardia lamblia PCR Not Detected; Norovirus Gi/GII PCR Not Detected; Plesiomonas shig PCR Not Detected; Rotavirus A PCR Not Detected; Salmonella PCR Not Detected; Sapovirus PCR Not Detected; Shiga toxin E coli PCR Not Detected; Shigella/Enteroinvasive E coli Not Detected; Vibrio PCR Not Detected; Vibrio cholerae PCR Not Detected; Yersinia enterocolitica PCR Not Detected
[2024-04-05 23:40] LABS: Ova and Parasite, Fecal Negative (Negative)
--- NOTE | 2024-04-06 14:25 | ONC.NURNOTE ---
Teaching on pazopanib- with and daughter reviewed most common side effects, diarrhea, nausea reviewed safe handling, dosing, schedule, to take on an empty stomach at 0700 instructed to take compazine with 0800 medications the first days of treatment instructed to hold pantoprazole, ondansetron, melatonin, flavinoids, ok to take tylenol discussed process of ordering medication from specialty pharmacy[facility], dispensing of medication questions addressed
--- NOTE | 2024-04-07 09:25 | ONC.NURNOTE ---
PSDS #2- new treatment with Pazopanib =1 no problems identified denies SS referral
--- NOTE | 2024-04-07 09:41 | ONC.NURNOTE ---
Pazopanib RX and supporting documentation was faxed to [facility] at [phone]
--- NOTE | 2024-04-08 10:26 | ONC.NURNOTE ---
Pazopanib PA approval via [employer] through 05/18/2025 [phone] [facility] will be contacting patient about delivery copay $1100 there is no copay assist funding available for sarcoma at this time [employer] PAP - does not meet income eligibility patient was informed of the out of pocket costs for first fill patient requests to start the Friday after
[2024-04-14] MEDS: SODIUM CHLORIDE 0.9 % (FLUSH) 10 ML SYRINGE IVF (11:30)
[2024-04-14] MEDS: HEPARIN 500 UNIT/5 ML SYRINGE IVF (11:30)
[2024-04-14 11:43] LABS: Appearance Urine Clear (Clear); Basophils Absolute Auto 0.05 K/uL (0.00-0.30); Basophils Percent Auto 0.6 % (0.0-3.0); Bilirubin Urine Negative (Negative); Blood Urine Negative (Negative); Color Urine Yellow (Yellow); Eosinophils Absolute Auto 0.15 K/uL (0.00-0.50); Eosinophils Percent Auto 1.7 % (0.0-7.0); Glucose Urine Negative (Negative); Hematocrit 33.2 % (37.0-53.0); Hemoglobin* 10.7 gm/dL (13.5-17.5); Immature Granulocytes Abs Auto 0.06 K/uL (0.00-0.30); Immature Granulocytes Pct Auto 0.7 %; Ketones Urine Negative (Negative); Leukocyte Esterase Urine Negative (Negative); Lymphocytes Percent Auto 19.1 % (20-44); Mean Corpuscular HGB Conc 32 gm/dL (32-36); Mean Corpuscular Hemoglobin 31 pg (26-34); Mean Corpuscular Volume 95 fL (80-100); Monocytes Percent Auto 8.3 % (0.0-11.0); Neutrophils Percent Auto 69.6 % (42.0-72.0); Nitrite Urine Negative (Negative); Platelet Count* 163 K/uL (140-440); Protein Urine Negative (Negative); RDW Coefficient of Variation % 16.9 % (11.5-15.5); Urobilinogen Urine 0.2 (0.2-1.0); White Blood Count* 8.63 K/uL (4.50-11.00)
[2024-04-14 11:46] LABS: Slide Review Reflex No
[2024-04-14 11:56] LABS: Albumin* 3.5 g/dL (3.3-5.0)
[2024-04-14 11:57] LABS: Chloride* 103 mmol/L (96-114); Sodium* 135 mmol/L (135-149)
[2024-04-14 11:59] LABS: Bilirubin Total* 0.4 mg/dL (0.1-1.5); Creatinine* 1.2 mg/dL (0.5-1.5); Est. Creatinine Clearance* 45.56; Estimated Glomerular Filt Rate 63 ml/min
[2024-04-14 12:00] LABS: Alanine Aminotransferase* 15 U/L (4-50); Alkaline Phosphatase* 88 U/L (40-150); Anion Gap 4 mEq/L (7-15); Aspartate Amino Transferase* 18 U/L (12-35); Blood Urea Nitrogen* 15 mg/dL (7-30); Calcium* 9.1 mg/dL (8.4-10.6); Carbon Dioxide* 28 mmol/L (20-32); Glucose* 89 mg/dL (60-115); Magnesium* 2.1 mg/dL (1.5-2.6); Total Protein* 5.9 g/dL (6.0-8.3)
--- NOTE | 2024-04-23 10:56 | ONC.NURNOTE ---
Side effect surveillance for new start Pazopanib Ryan denies mouth sore, signs of bleeding, nausea, hand foot redness/tenderness, change in appetitie, HONEYCUTT's, loose stools He has noted change in bowel pattern but not loose or more frequent, fatigue- naps during the day, Monitors BP most days- no significant change from baseline eating 5 small meals a day, focusing on protien rich foods Taking pazopanib on an empty stomach 1 hr before breakfast
--- NOTE | 2024-04-26 09:39 | ONC.NURNOTE ---
pazopanib- side effects check in reports no concerns denies diarrhea, HONEYCUTT's, N/V, signs of bleeding reports fatigue took 2 X 200mg pazopanib today
--- NOTE | 2024-04-29 13:52 | ONC.NURNOTE ---
pazopanib tolerance check in reports urgency in bowel movements mid day- not watery denies N/V/Fitzgerald's, PPE, bleeding, mouth sores suggested trying 1 imodium to manage the urgency lab due Friday
[2024-05-03 10:15] LABS: Appearance Urine Clear (Clear); Bilirubin Urine Negative (Negative); Blood Urine Trace-intact (Negative); Color Urine Yellow (Yellow); Glucose Urine Negative (Negative); Ketones Urine Negative (Negative); Leukocyte Esterase Urine Negative (Negative); Nitrite Urine Negative (Negative); Protein Urine Negative (Negative); Specific Gravity Urine 1.015 (1.000-1.030); Urobilinogen Urine 0.2 (0.2-1.0); pH Urine 5.5 (5.0-8.5)
[2024-05-03] MEDS: SODIUM CHLORIDE 0.9 % (FLUSH) 10 ML SYRINGE IVF (10:15)
[2024-05-03] MEDS: HEPARIN 500 UNIT/5 ML SYRINGE IVF (10:15)
[2024-05-03 10:24] LABS: RBC Urine 0-2 (0-2); WBC Urine 0-2 (0-5)
[2024-05-03 10:24] LABS: Basophils Percent Auto 0.5 % (0.0-3.0); Hematocrit 37.3 % (37.0-53.0); Hemoglobin* 12.6 gm/dL (13.5-17.5); Immature Granulocytes Pct Auto 0.4 %; Lymphocytes Percent Auto 43.2 % (20-44); Mean Corpuscular HGB Conc 34 gm/dL (32-36); Mean Corpuscular Hemoglobin 31 pg (26-34); Mean Corpuscular Volume 91 fL (80-100); Monocytes Percent Auto 4.9 % (0.0-11.0); Platelet Count* 129 K/uL (140-440); RDW Coefficient of Variation % 15.3 % (11.5-15.5); Red Blood Count 4.11 m/uL (4.30-5.90); White Blood Count* 5.53 K/uL (4.50-11.00)
[2024-05-03 10:25] LABS: Basophils Absolute Auto 0.03 K/uL (0.00-0.30); Eosinophils Absolute Auto 0.11 K/uL (0.00-0.50); Immature Granulocytes Abs Auto 0.02 K/uL (0.00-0.30); Lymphocytes Absolute Auto 2.39 K/uL (0.90-2.90); Neutrophils Absolute Auto 2.71 K/uL (1.7-7.0)
[2024-05-03 10:29] LABS: Chloride* 105 mmol/L (96-114); Slide Review Reflex No; Sodium* 137 mmol/L (135-149)
[2024-05-03 10:31] LABS: Bilirubin Total* 1.2 mg/dL (0.1-1.5); Creatinine* 1.2 mg/dL (0.5-1.5); Est. Creatinine Clearance* 45.56; Estimated Glomerular Filt Rate 63 ml/min
[2024-05-03 10:32] LABS: Alanine Aminotransferase* 21 U/L (4-50); Alkaline Phosphatase* 76 U/L (40-150); Anion Gap 8 mEq/L (7-15); Aspartate Amino Transferase* 21 U/L (12-35); Blood Urea Nitrogen* 12 mg/dL (7-30); Calcium* 8.8 mg/dL (8.4-10.6); Carbon Dioxide* 24 mmol/L (20-32); Glucose* 113 mg/dL (60-115); Magnesium* 2.1 mg/dL (1.5-2.6); Total Protein* 6.4 g/dL (6.0-8.3)
--- NOTE | 2024-05-03 13:18 | ONC.NURNOTE ---
Pazopanib- [address] Leavitt noted change in bilirubin following instructions called to Ryan per Dr Leavitt liver panel next week if bili elevated reduce dose of pazopanib to 200 mg day- or hold if significant elevation patient states understanding denies any concerns or changes reports tolerance to medication appts reviewed reminded to call [facility] with any changes or concerns regarding side effects-
[2024-05-10 11:03] LABS: Albumin* 3.9 g/dL (3.3-5.0)
[2024-05-10 11:05] LABS: Bilirubin Direct* 0.3 mg/dL (0.0-0.5); Bilirubin Total* 0.8 mg/dL (0.1-1.5); Total Protein* 6.1 g/dL (6.0-8.3)
[2024-05-10 11:06] LABS: Alanine Aminotransferase* 21 U/L (4-50); Alkaline Phosphatase* 69 U/L (40-150); Aspartate Amino Transferase* 20 U/L (12-35)
--- NOTE | 2024-05-10 12:13 | ONC.NURNOTE ---
Left message for patient about lab results. Results were reviewed by [facility] and travis to continue pazopanib 400mg daily and to keep next lab appointment on 05/17. Prescription for Pazopanib was refilled by [facility].
[2024-05-17 10:01] VITALS: BP 154/94; PULSE 71; RESP 15; TEMP 36.8; O2SAT 97
[2024-05-17 10:31] LABS: Basophils Absolute Auto 0.01 K/uL (0.00-0.30); Basophils Percent Auto 0.2 % (0.0-3.0); Eosinophils Absolute Auto 0.22 K/uL (0.00-0.50); Eosinophils Percent Auto 4.8 % (0.0-7.0); Hematocrit 39.7 % (37.0-53.0); Hemoglobin* 13.4 gm/dL (13.5-17.5); Lymphocytes Percent Auto 37.4 % (20-44); Mean Corpuscular HGB Conc 34 gm/dL (32-36); Mean Corpuscular Hemoglobin 31 pg (26-34); Mean Corpuscular Volume 92 fL (80-100); Monocytes Percent Auto 6.2 % (0.0-11.0); Neutrophils Absolute Auto 2.33 K/uL (1.7-7.0); Neutrophils Percent Auto 51.4 % (42.0-72.0); Platelet Count* 95 K/uL (140-440); RDW Coefficient of Variation % 16.7 % (11.5-15.5); Red Blood Count 4.34 m/uL (4.30-5.90); White Blood Count* 4.54 K/uL (4.50-11.00)
[2024-05-17 10:42] LABS: Appearance Urine Clear (Clear); Bilirubin Urine Negative (Negative); Blood Urine 1+ (Negative); Color Urine Yellow (Yellow); Glucose Urine Negative (Negative); Ketones Urine Negative (Negative); Leukocyte Esterase Urine Negative (Negative); Nitrite Urine Negative (Negative); Protein Urine 1+ (Negative); Specific Gravity Urine 1.015 (1.000-1.030); Urobilinogen Urine 0.2 (0.2-1.0); pH Urine 5.5 (5.0-8.5)
[2024-05-17 10:45] LABS: Albumin* 4.1 g/dL (3.3-5.0); Chloride* 103 mmol/L (96-114)
[2024-05-17 10:46] LABS: Potassium* 3.9 mmol/L (3.6-5.1); Sodium* 135 mmol/L (135-149)
[2024-05-17 10:48] LABS: Anion Gap 7 mEq/L (7-15); Aspartate Amino Transferase* 52 U/L (12-35); Bilirubin Total* 1.1 mg/dL (0.1-1.5); Blood Urea Nitrogen* 13 mg/dL (7-30); Carbon Dioxide* 25 mmol/L (20-32); Creatinine* 1.2 mg/dL (0.5-1.5); Est. Creatinine Clearance* 45.56; Estimated Glomerular Filt Rate 63 ml/min; Total Protein* 6.5 g/dL (6.0-8.3)
[2024-05-17 10:49] LABS: Alanine Aminotransferase* 84 U/L (4-50); Alkaline Phosphatase* 73 U/L (40-150); Glucose* 98 mg/dL (60-115); Magnesium* 2.1 mg/dL (1.5-2.6)
[2024-05-17 10:54] LABS: RBC Urine 0-2 (0-2); WBC Urine 0-2 (0-5)
[2024-05-17 10:59] LABS: Slide Review Reflex No
--- NOTE | 2024-05-17 14:02 | ONC.NURNOTE ---
Lab results reviewed with Sandy - no dose modifications indicated sees Dr Leavitt next week results reviewed with Ryan
--- NOTE | 2024-05-18 13:04 | PC.NURSE ---
Pt reporting high BP measurements at home. Directed pt to call PCP to discuss. Ryan called Dr. Cormier and was instructed to double up on BP meds and continue to monitor. Pt will be in on Friday to see Dr. Leavitt.
[2024-05-24 07:49] LABS: Basophils Absolute Auto 0.03 K/uL (0.00-0.30); Basophils Percent Auto 0.6 % (0.0-3.0); Eosinophils Percent Auto 8.3 % (0.0-7.0); Hematocrit 40.3 % (37.0-53.0); Hemoglobin* 13.7 gm/dL (13.5-17.5); Immature Granulocytes Abs Auto 0.01 K/uL (0.00-0.30); Immature Granulocytes Pct Auto 0.2 %; Lymphocytes Absolute Auto 2.11 K/uL (0.90-2.90); Lymphocytes Percent Auto 41.8 % (20-44); Mean Corpuscular HGB Conc 34 gm/dL (32-36); Mean Corpuscular Hemoglobin 31 pg (26-34); Mean Corpuscular Volume 92 fL (80-100); Monocytes Percent Auto 7.9 % (0.0-11.0); Neutrophils Percent Auto 41.2 % (42.0-72.0); Platelet Count* 102 K/uL (140-440); RDW Coefficient of Variation % 17.1 % (11.5-15.5); Red Blood Count 4.39 m/uL (4.30-5.90); Slide Review Reflex No; White Blood Count* 5.05 K/uL (4.50-11.00)
[2024-05-24 08:25] LABS: Albumin* 4.1 g/dL (3.3-5.0); Chloride* 105 mmol/L (96-114); Sodium* 136 mmol/L (135-149)
[2024-05-24 08:26] LABS: Potassium* 3.8 mmol/L (3.6-5.1)
[2024-05-24 08:28] LABS: Alkaline Phosphatase* 77 U/L (40-150); Anion Gap 6 mEq/L (7-15); Aspartate Amino Transferase* 154 U/L (12-35); Bilirubin Total* 0.9 mg/dL (0.1-1.5); Blood Urea Nitrogen* 15 mg/dL (7-30); Carbon Dioxide* 25 mmol/L (20-32); Creatinine* 1.1 mg/dL (0.5-1.5); Est. Creatinine Clearance* 51.56; Estimated Glomerular Filt Rate 70 ml/min; Total Protein* 6.3 g/dL (6.0-8.3)
[2024-05-24 08:29] LABS: Alanine Aminotransferase* 360 U/L (4-50); Glucose* 103 mg/dL (60-115)
--- NOTE | 2024-05-24 11:59 | ONC.NURNOTE ---
patient leaving for [place] on 05/27/24 Coordination of care with [facility] [place] Nurse Navigator is Ayah Penny ph [phone] f [phone] main # [phone] referral line fax ( lab orders faxed to this #) [phone] phone [phone] Due for lab/urine on 05/31/24 pazopanib held until next weeks labs
[2024-05-25 18:45] LABS: Total T3 133 ng/dL (80-200)
--- NOTE | 2024-05-31 15:23 | ONC.NURNOTE ---
Pt had LFTs drawn in [facility]. Labs reviewed by Dr. Leavitt. Per Dr. Leavitt, pt should hold oral chemo x1 week and recheck LFTs in [address] Leavitt to place lab orders in [facility]. Pt called and given results of LFTs and instructions to continue to hold oral chemo until labs redrawn in 1 week. Pt verbalized understanding of plan of care.
--- NOTE | 2024-06-02 14:12 | ONC.NURNOTE ---
T4 results reviewed by Dr. Leavitt. Will continue to monitor.
--- NOTE | 2024-06-08 14:14 | ONC.NURNOTE ---
Dr Leavitt reviewed pt's [place] labs from 06/07/24. Bili-0.6, AST-40, ALT 119. Per Dr. Leavitt, pt okay to restart Pazopanib at 200mg per day. Security Inspector called pt with update, pt verbalized understanding of plan of care. Pt has an appt with [place] in [place] next week for follow up.
== END 2024-07-11 23:59 | disposition home or self-care (01) ==
LOC: CCIC 07:45
PROVIDERS: Clinical Nurse Specialist; Physician Assistant; PCP Internal Medicine; Referring Provider Internal Medicine; Visit Provider Internal Medicine Hematology & Oncology
DX: C49.3 Malignant neoplasm of connective and soft tissue of thorax (principal); E03.9 Hypothyroidism, unspecified; Z86.711 Personal history of pulmonary embolism; Z79.01 Long term (current) use of anticoagulants
CPT/HCPCS: 36415; 36430; 36591; 80048; 80053; 80076; 81001; 81003; 82270; 83735; 84436; 84443; 84480; 85025; 86850; 86900; 86901; 86922; 87040; 87177; 87209; 87493; 87505; 93005; 96360; 96361; 96367; 96372; 96375; 96376; 96413; 96415; 96417; 99202; 99205; 99211; 99214; 99215; G0463; J1100; J1642; J2405; J7030; J7050; J9171; J9201; P9016; Q5108

== ENCOUNTER 2025-02-08 14:00 | Outpatient (RCR) | payer MEDICARE, OTHER, SELFPAY ==
[2024-09-29] MEDS: HEPARIN 500 UNIT/5 ML SYRINGE IVF (12:35)
[2024-09-29] MEDS: SODIUM CHLORIDE 0.9 % (FLUSH) 10 ML SYRINGE IVF (12:35)
[2024-09-29 12:47] LABS: Appearance Urine Clear (Clear)
[2024-09-29 12:48] LABS: Hematocrit* 38.0 % (37.0-53.0); Hemoglobin* 13.0 gm/dL (13.5-17.5); Immature Granulocytes Abs Auto 0.00 K/uL (0.00-0.30); Immature Granulocytes Pct Auto 0.0 %; Mean Corpuscular HGB Conc 34 gm/dL (32-36); Mean Corpuscular Hemoglobin 36 pg (26-34); Mean Corpuscular Volume 104 fL (80-100); RDW Coefficient of Variation % 14.8 % (11.5-15.5); Red Blood Count* 3.66 m/uL (4.30-5.90); White Blood Count* 3.08 K/uL (4.50-11.00)
[2024-09-29 13:00] LABS: Albumin* 3.9 g/dL (3.3-5.0); Chloride* 103 mmol/L (96-114)
[2024-09-29 13:01] LABS: Potassium* 4.0 mmol/L (3.6-5.1); Sodium* 135 mmol/L (135-149)
[2024-09-29 13:03] LABS: Anion Gap 4 mEq/L (7-15); Bilirubin Total* 1.2 mg/dL (0.1-1.5); Blood Urea Nitrogen* 12 mg/dL (7-30); Carbon Dioxide* 28 mmol/L (20-32); Creatinine* 1.2 mg/dL (0.5-1.5); Estimated Glomerular Filt Rate 62 ml/min
[2024-09-29 13:04] LABS: Alanine Aminotransferase* 50 U/L (4-50); Alkaline Phosphatase* 55 U/L (40-150); Aspartate Amino Transferase* 37 U/L (12-35); Calcium* 8.7 mg/dL (8.4-10.6); Glucose* 110 mg/dL (60-115); Total Protein* 6.2 g/dL (6.0-8.3)
[2024-09-29 13:16] LABS: Lymphocytes Absolute Auto 1.20 K/uL (0.90-2.90); Slide Review Reflex No
[2024-10-27 14:49] LABS: Hematocrit* 40.5 % (37.0-53.0); Hemoglobin* 13.6 gm/dL (13.5-17.5); Immature Granulocytes Pct Auto 0.2 %; Mean Corpuscular HGB Conc 34 gm/dL (32-36); Mean Corpuscular Hemoglobin 36 pg (26-34); Mean Corpuscular Volume 107 fL (80-100); RDW Coefficient of Variation % 14.9 % (11.5-15.5); Red Blood Count* 3.80 m/uL (4.30-5.90); White Blood Count* 4.42 K/uL (4.50-11.00)
[2024-10-27 14:52] LABS: Immature Granulocytes Abs Auto 0.00 K/uL (0.00-0.30); Lymphocytes Absolute Auto 2.00 K/uL (0.90-2.90); Slide Review Reflex No
[2024-10-27 15:10] LABS: Albumin* 4.2 g/dL (3.3-5.0); Chloride* 102 mmol/L (96-114); Potassium* 4.2 mmol/L (3.6-5.1); Sodium* 137 mmol/L (135-149)
[2024-10-27 15:13] LABS: Alanine Aminotransferase* 34 U/L (4-50); Alkaline Phosphatase* 54 U/L (40-150); Anion Gap 9 mEq/L (7-15); Aspartate Amino Transferase* 29 U/L (12-35); Bilirubin Total* 0.9 mg/dL (0.1-1.5); Blood Urea Nitrogen* 14 mg/dL (7-30); Carbon Dioxide* 26 mmol/L (20-32); Creatinine* 1.2 mg/dL (0.5-1.5); Est. Creatinine Clearance* 44.84; Estimated Glomerular Filt Rate 62 ml/min; Total Protein* 6.4 g/dL (6.0-8.3)
[2024-10-27 15:14] LABS: Calcium* 9.2 mg/dL (8.4-10.6); Glucose* 101 mg/dL (60-115)
--- NOTE | 2024-10-27 15:48 | ONC.NURNOTE ---
Lab results called to Ryan- normal and stable
[2024-11-16] MEDS: SODIUM CHLORIDE 0.9 % (FLUSH) 10 ML SYRINGE IVF (09:55)
[2024-11-16] MEDS: HEPARIN 500 UNIT/5 ML SYRINGE IVF (09:55)
[2024-11-16 10:03] LABS: Hematocrit* 38.2 % (37.0-53.0); Hemoglobin* 13.2 gm/dL (13.5-17.5); Immature Granulocytes Pct Auto 0.2 %; Mean Corpuscular HGB Conc 35 gm/dL (32-36); Mean Corpuscular Hemoglobin 36 pg (26-34); Mean Corpuscular Volume 104 fL (80-100); RDW Coefficient of Variation % 14.4 % (11.5-15.5); Red Blood Count* 3.67 m/uL (4.30-5.90); White Blood Count* 4.01 K/uL (4.50-11.00)
[2024-11-16 10:04] LABS: Immature Granulocytes Abs Auto 0.00 K/uL (0.00-0.30); Lymphocytes Absolute Auto 1.40 K/uL (0.90-2.90); Slide Review Reflex No
[2024-11-16 10:18] LABS: Albumin* 3.7 g/dL (3.3-5.0); Chloride* 102 mmol/L (96-114); Potassium* 4.1 mmol/L (3.6-5.1); Sodium* 133 mmol/L (135-149)
[2024-11-16 10:21] LABS: Alanine Aminotransferase* 31 U/L (4-50); Alkaline Phosphatase* 58 U/L (40-150); Anion Gap 4 mEq/L (7-15); Aspartate Amino Transferase* 26 U/L (12-35); Bilirubin Total* 1.0 mg/dL (0.1-1.5); Blood Urea Nitrogen* 13 mg/dL (7-30); Calcium* 9.4 mg/dL (8.4-10.6); Carbon Dioxide* 27 mmol/L (20-32); Creatinine* 1.2 mg/dL (0.5-1.5); Est. Creatinine Clearance* 44.84; Estimated Glomerular Filt Rate 62 ml/min; Glucose* 90 mg/dL (60-115); Total Protein* 5.8 g/dL (6.0-8.3)
[2024-12-03 08:49] LABS: Hematocrit* 36.8 % (37.0-53.0); Hemoglobin* 12.4 gm/dL (13.5-17.5); Immature Granulocytes Pct Auto 0.2 %; Mean Corpuscular HGB Conc 34 gm/dL (32-36); Mean Corpuscular Hemoglobin 36 pg (26-34); Mean Corpuscular Volume 107 fL (80-100); RDW Coefficient of Variation % 15.9 % (11.5-15.5); Red Blood Count* 3.45 m/uL (4.30-5.90); White Blood Count* 4.39 K/uL (4.50-11.00)
[2024-12-03 08:57] LABS: Immature Granulocytes Abs Auto 0.00 K/uL (0.00-0.30); Lymphocytes Absolute Auto 1.40 K/uL (0.90-2.90)
[2024-12-03 08:58] LABS: Slide Review Reflex Yes
[2024-12-03 10:00] LABS: Slide Review Acceptable Review (Acceptable)
[2024-12-20] MEDS: SODIUM CHLORIDE 0.9 % (FLUSH) 10 ML SYRINGE IVF (08:31)
[2024-12-20] MEDS: HEPARIN 500 UNIT/5 ML SYRINGE IVF (08:31)
[2024-12-20 08:44] LABS: Hematocrit* 39.5 % (37.0-53.0); Hemoglobin* 13.3 gm/dL (13.5-17.5); Immature Granulocytes Abs Auto 0.00 K/uL (0.00-0.30); Immature Granulocytes Pct Auto 0.0 %; Lymphocytes Absolute Auto 1.53 K/uL (0.90-2.90); Mean Corpuscular HGB Conc 34 gm/dL (32-36); Mean Corpuscular Hemoglobin 36 pg (26-34); Mean Corpuscular Volume 107 fL (80-100); RDW Coefficient of Variation % 15.6 % (11.5-15.5); Red Blood Count* 3.71 m/uL (4.30-5.90); White Blood Count* 4.86 K/uL (4.50-11.00)
[2024-12-20 08:50] LABS: Slide Review Reflex No
[2024-12-20 08:57] LABS: Albumin* 3.9 g/dL (3.3-5.0); Chloride* 99 mmol/L (96-114); Potassium* 4.2 mmol/L (3.6-5.1); Sodium* 131 mmol/L (135-149)
[2024-12-20 09:00] LABS: Alanine Aminotransferase* 27 U/L (4-50); Alkaline Phosphatase* 55 U/L (40-150); Anion Gap 6 mEq/L (7-15); Aspartate Amino Transferase* 25 U/L (12-35); Bilirubin Total* 1.0 mg/dL (0.1-1.5); Blood Urea Nitrogen* 14 mg/dL (7-30); Carbon Dioxide* 26 mmol/L (20-32); Creatinine* 1.1 mg/dL (0.5-1.5); Est. Creatinine Clearance* 48.92; Estimated Glomerular Filt Rate 69 ml/min; Total Protein* 6.0 g/dL (6.0-8.3)
[2024-12-20 09:01] LABS: Calcium* 8.9 mg/dL (8.4-10.6); Glucose* 118 mg/dL (60-115)
--- NOTE | 2024-12-20 14:46 | ONC.NURNOTE ---
lab results reviewed and called to Ryan noted Na is 131 Ryan does not like the taste of salt- and has been avoiding salty foods Ryan does have #12 1 gm salt tabs at home, and has taken 1 daily follow up on starting salt tabs needed
[2025-01-18] MEDS: HEPARIN 500 UNIT/5 ML SYRINGE IVF (08:37)
[2025-01-18] MEDS: SODIUM CHLORIDE 0.9 % (FLUSH) 10 ML SYRINGE IVF (08:38)
[2025-01-18 09:02] LABS: Hematocrit* 39.3 % (37.0-53.0); Hemoglobin* 13.1 gm/dL (13.5-17.5); Immature Granulocytes Abs Auto 0.00 K/uL (0.00-0.30); Immature Granulocytes Pct Auto 0.0 %; Lymphocytes Absolute Auto 1.35 K/uL (0.90-2.90); Mean Corpuscular HGB Conc 33 gm/dL (32-36); Mean Corpuscular Hemoglobin 35 pg (26-34); Mean Corpuscular Volume 106 fL (80-100); RDW Coefficient of Variation % 14.8 % (11.5-15.5); Red Blood Count* 3.71 m/uL (4.30-5.90); White Blood Count* 4.65 K/uL (4.50-11.00)
[2025-01-18 09:14] LABS: Albumin* 3.7 g/dL (3.3-5.0); Chloride* 101 mmol/L (96-114); Potassium* 4.3 mmol/L (3.6-5.1); Sodium* 133 mmol/L (135-149)
[2025-01-18 09:16] LABS: Alanine Aminotransferase* 24 U/L (4-50); Anion Gap 6 mEq/L (7-15); Aspartate Amino Transferase* 23 U/L (12-35); Blood Urea Nitrogen* 12 mg/dL (7-30); Carbon Dioxide* 26 mmol/L (20-32); Creatinine* 1.1 mg/dL (0.5-1.5); Est. Creatinine Clearance* 48.92; Estimated Glomerular Filt Rate 69 ml/min
[2025-01-18 09:17] LABS: Alkaline Phosphatase* 56 U/L (40-150); Bilirubin Total* 0.8 mg/dL (0.1-1.5); Calcium* 8.9 mg/dL (8.4-10.6); Glucose* 95 mg/dL (60-115); Total Protein* 5.8 g/dL (6.0-8.3)
[2025-01-18 09:47] LABS: Slide Review Reflex No
[2025-01-18 10:14] LABS: Protein Creatinine Ratio Urine 0.12 (0-0.19)
--- NOTE | 2025-01-18 11:33 | ONC.NURNOTE ---
Lab results called to Ryan. Noted sodium- states he is out of salt tablets refell request forwarded to Dr Leavitt reports no concerns no new cough or LE edema tolerating with intermittent diarrhea managed with imodium
== END 2025-03-28 23:59 | disposition home or self-care (01) ==
LOC: CCIC 14:00
PROVIDERS: Clinical Nurse Specialist; Internal Medicine Hematology & Oncology; PCP Internal Medicine; Referring Provider Internal Medicine; Visit Provider Internal Medicine Hematology & Oncology
DX: C49.3 Malignant neoplasm of connective and soft tissue of thorax (principal)
CPT/HCPCS: 36415; 36591; 80053; 81003; 82570; 83735; 84156; 84443; 85025; 99215; G0463; J1642

== ENCOUNTER 2025-05-16 10:12 | Emergency (ER) | payer MEDICARE, OTHER, SELFPAY ==
--- OUTSIDE RECORDS SUMMARY | 2025-04-21 16:00 | XMS_ITS | Encounter Summary ---
Author Organization [facility] Address [address] [place] [address] Care Team Providers Care Cooler Room Worker Name Role Phone Elsewhere, Pcp Primary Care Provider Unavailabl e Encounter Details DateTypeDepartmentCare Team (Latest Contact Info)Eldielmhcxx83/04/2025 3:00 PM [facility] Department of Infusion Therapy in [place], [place] [address] [place] [phone] Boy Gorman M.D. 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 Never true06/09/2024Within the past 12 months, the food you bought just didn't last and you didn't have money to get more.Never true06/09/2024PRAPARE - TransportationAnswerDate RecordedIn the past 12 months, has lack of transportation kept you from medical appointments or from getting medications?No 06/09/2024In the past 12 months, has lack of transportation kept you from meetings, work, or from getting things needed for daily living?No06/09/2024 Housing StabilityAnswerDate RecordedWhat is your living situation today?I have a steady place to live06/09/2024Sex and Gender InformationValueDate RecordedSex Assigned at RetvxRmoj44/06/2019 8:03 AM CDTLegal VmwVgew4306/20/2016 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 (Walker, cane, wheelchair, crutch) AnswerDate of NbljxpxftmYprxnuGx89/04/2025 12:15 PM CSTPatient, Online Services * Today, do you feel any of the following? Weak, dizzy, shaky, or unsteady? AnswerDate of QhlvkgehltFquvszBr15/04/2025 12:15 PM CSTPatient, Online Services * Have you taken any medication within the last 6 hours which may make you feel drowsy? Such as sleep, pain, or anxiety medicationAnswerDate of Assessment CjhtiiDn41/04/2025 12:15 PM CSTPatient, Online Services * Pain AssessmentQuestionAnswerDate of AssessmentAuthorPain Score0 - No pain 04/21/2025 2:58 PM Spring Reynoso R.N. documented as of this encounter Plan of Treatment DateTypeDepartmentCare Team (Latest Contact Info)Nnqwbttpaok43/21/2026 1:45 PM MSTAppointment Department of Radiology, [facility], in [place], [place] [address] [place] [address] Boy Gorman M.D. 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) COMPREHENSIVE METABOLIC PANEL, S/YAtwnuzk98/04/2025 3:01 PM MST 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) documented in this encounter Results * Nucleated RBC (04/21/2025 3:01 PM MST)ComponentValueRef RangeTest Method Analysis TimePerformed AtPathologist SignatureNucleated RBC0.0/100 WBC 04/21/2025 3:37 PM MSTAZMCSpecimen (Source)Anatomical Location / Laterality Collection Method / VolumeCollection TimeReceived QbjzIjwjw94/04/2025 3:01 PM MST04/21/2025 3:13 PM MST Narrative Authorizing ProviderResult TypeResult StatusMahesh Vita BaiLAB BLOOD NON ADD-ONFinal ResultPerforming OrganizationAddressty/State/ZIP CodePhone Number [facility] [address] [place] [address], [facility] [phone] [address] * (ABNORMAL) S-TSH (Thyroid-Stimulating Hormone - Sensitive) (04/21/2025 3:01 PM MST)ComponentValueRef RangeTest MethodAnalysis TimePerformed AtPathologist SignatureTSH, Sensitive5.6(H)0.3 - 4.2 mIU/L106/22/2024 5:14 PM MSTAZMCSpecimen (Source)Anatomical Location / LateralityCollection Method / VolumeCollection TimeReceived TimeBlood (Blood, Venous)04/21/2025 3:01 PM MST04/21/2025 3:13 PM MST Narrative Authorizing ProviderResult TypeResult StatusBoy Gorman M.D.LAB BLOOD ADD-ONFinal ResultPerforming OrganizationAddressCity/State/ZIP CodePhone Number [facility] [address] [place] [address], [facility] [phone] [place] [address] * (ABNORMAL) Comprehensive Metabolic Panel (04/21/2025 3:01 PM MST)Component ValueRef RangeTest MethodAnalysis TimePerformed AtPathologist Signature Potassium, S4.73.6 - 5.2 mmol/L106/22/2024 5:14 PM MSTAZMCSodium, P197865 - 145 mmol/L106/22/2024 5:14 PM MSTAZMCChloride, M41966 - 107 mmol/L106/22/2024 5:14 PM MSTAZMCBicarbonate, S2322 - 29 mmol/L106/22/2024 5:36 PM MSTAZMCAnion Qkh619 - [address]106/22/2024 5:36 PM MSTAZMCBUN (Blood Urea Nitrogen), S11.38.0 - 24.0 mg/dL 04/21/2025 5:14 PM MSTAZMCCreatinine1.010.74 - 1.35 mg/dL04/21/2025 5:32 PM MSTAZMCEstimated GFR (eGFR)77>=60 mL/min/BSA04/21/2025 5:32 PM MSTAZMCComment: Estimated GFR calculated using the 2020 CKD_EPI creatinine equation. Calcium, Total, S9.78.8 - 10.2 mg/dL04/21/2025 5:43 PM MSTAZMCGlucose, P87470 - 140 mg/dL04/21/2025 5:32 PM MSTAZMCProtein, Total, S5.9(L)6.3 - 7.9 g/dL 04/21/2025 5:14 PM MSTAZMCAlbumin, S4.23.5 - 5.0 g/dL04/21/2025 5:32 PM MSTAZMC Aspartate Aminotransferase (AST), S258 - 48 U/L106/22/2024 5:32 PM MSTAZMC Alkaline Phosphatase, S6640 - 129 U/L106/22/2024 5:32 PM MSTAZMCAlanine Aminotransferase (ALT), S277 - 55 U/L106/22/2024 5:32 PM MSTAZMCBilirubin, Total, S1.00.0 - 1.2 mg/dL04/21/2025 5:32 PM MSTAZMCSpecimen (Source)Anatomical Location / LateralityCollection Method / VolumeCollection TimeReceived TimeBlood (Blood, Venous)04/21/2025 3:01 PM MST04/21/2025 3:13 PM MST Narrative Authorizing ProviderResult TypeResult StatusMaoksana Gorman M.D.LAB BLOOD ADD-ONFinal ResultPerforming OrganizationAddressCity/State/ZIP CodePhone Number [facility] [address] [place] [address], [facility] [phone] [facility] [address] [place] [address] * (ABNORMAL) CBC with Differential, Blood (04/21/2025 3:01 PM MST)ComponentValue Ref RangeTest MethodAnalysis TimePerformed AtPathologist SignatureHemoglobin 14.013.2 - 16.6 g/dL04/21/2025 3:37 PM OYRZPFLIqllnpnnuy96.238.3 - 48.6 % 04/21/2025 3:37 PM MSTAZErythrocytes4.00(L)4.35 - 5.65 x10(12)/L106/22/2024 3:37 PM MHAFETPDJE885.0(H)78.2 - 97.9 fL04/21/2025 3:37 PM MSTAZRBC Distrib Width15.7(H)11.8 - 14.5 %04/21/2025 3:37 PM MSTBAILEY [facility], OKLAHOMAPlatelet Ghbmt647113 - 317 x10(9)/L106/22/2024 3:37 PM MSTAZLeukocytes6.23.4 - 9.6 x10(9)/L106/22/2024 3:37 PM MSTBA[facility], [place]LAHOMANeutrophils3.291.56 - 6.45 x10(9)/L106/22/2024 3:37 PM [facility] Lymphocytes2.300.95 - 3.07 x10(9)/L106/22/2024 3:37 PM MSTAZMonocytes0.420.26 - 0.81 x10(9)/L106/22/2024 3:37 PM MSTAZEosinophils0.140.03 - 0.48 x10(9)/L 04/21/2025 3:37 PM MSTAZBasophils0.030.01 - 0.08 x10(9)/L106/22/2024 3:37 PM MSTAZMCSpecimen (Source)Anatomical Location / LateralityCollection Method / VolumeCollection TimeReceived TimeBlood (Blood, Venous)04/21/2025 3:01 PM MST 04/21/2025 3:13 PM MST Narrative Authorizing ProviderResult TypeResult StatusMahesnicholas Gorman M.D.LAB BLOOD ADD-ONFinal ResultPerforming OrganizationAddressCity/State/ZIP CodePhone Number [facility] [address] [place] [address], [facility] [phone] [facility] [address] [place] [address] [facility] [address] [place] [address] documented in this encounter Visit Diagnoses Diagnosis 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 5 mL (500 units) of Heparin 100 units/mL to each port/lumen. When IVAD not accessed or infusing: When no infusion to maintain patency flush every 28 days following NaCL flush. 5 mL (500 units) of Heparin 100 units/mL to each port/lumen. Indications:Secondary Malignant Neoplasm Soft Tissue (HCC)Given04/21/2025 3:01 PM DPT624 Units sodium chloride 0.9 % injection 10-20 mL 10-20 mL, intra-catheter, As needed, line care, Starting on Marzena 04/21/25 at 1448, When IVAD accessedand infusing: Flush prior to and following infusion, between multiple consecutive infusions. 10 mL to each port/lumen. Indications:Secondary Malignant Neoplasm Soft Tissue (HCC)Given04/21/2025 3:00 PM MST20 bTNkacn7504/21/2025 2:58 PM MST10 mLdocumented in this encounter Additional Health Concerns InfectionOnset DateLast IndicatedResolved TimeProtective Nigwmcogloy38/10/2025 06/28/2024documented as of this encounter Care Teams Team MemberRelationshipSpecialtyStart DateEnd Date Elsewhere, Pcp PCP - GeneralInternal Medicine09/24/24documented as of this encounter
--- OUTSIDE RECORDS SUMMARY | 2025-04-22 11:00 | XMS_ITS | Encounter Summary ---
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 [address] [place] [address] Phone: tel: fax: [facility] Referral IDStatusReasonStart DateExpiration DateVisits RequestedVisits [id number]/5/20253/7/202711 [facility] Reason for Visit * Outpatient (Routine) - ClosedSpecialtyDiagnoses / ProceduresReferred By ContactReferred To ContactOncology Boy Gorman M.D. [address] [place] [address] Phone: tel: fax: [facility] Referral IDStatusReasonStart DateExpiration DateVisits RequestedVisits [id number]/23/20254/ Encounter Details DateTypeDepartmentCare Team (Latest Contact Info)Dnckmvcipwt21/05/2025 10:00 AM MSTOffice Visit Division of Hematology and Medical Oncology [address] [place] [address] Boy Gorman M.D. [address] [place] [address] Leiomyosarcoma Non Uterine (HCC) (Primary Dx); Secondary Malignant Neoplasm Lung Left (HCC); Secondary Malignant Neoplasm Soft Tissue (HCC); Hypothyroidism Social History Tobacco UseTypesPacks/DayYears UsedDateSmoking Tobacco: FormerCigarettes0.8102.5 1969 - 11/16/1968Smokeless Tobacco: FormerSnuffQuit: 11/16/1997Alcohol Use Standard Drinks/WeekCommentsNot Currently0 (1 standard drink = 0.6 oz pure alcohol)[facility] UtilitiesAnswerDate RecordedIn the past 12 months has the [employer], gas, oil, or water [email or web address] threatened to shut off services in your [...] live06/09/2024Sex and Gender InformationValueDate RecordedSex Assigned at LrhkqBkri82/06/2019 8:03 AM CDTLegal GsqGvin7406/20/2016 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 - 04/22/2025 10:00 AM MST DATE OF VISIT: 04/22/2025 CHIEF COMPLAINT / REASON FOR VISIT Ryan Mccain is a 79 y.o. male seen for followup of sarcoma. The patient verbally consented to an audio recording of their visit to assist with the completion of documentation. 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 CT chest abdomen and pelvis imaging in the ED shows a 7.3 x 7.2 x 7.1 cm heterogeneous mass thoughtto originate from the IVC at the level of the right renal vein. Concern was raised for phaeochromocytoma. Subsequent work up including blood and urine studies rules out phaeochromocytoma. 09/05/2021 Biopsy/Pathology CT guided biopsy positive for high grade leiomyosarcoma. 10/22/2021 - 02/11/2022 Chemotherapy Doxorubicin and dacarbazine. He would complete 6 cycles total. Repeat imaging would show minor response (measuring 6.7 x 4.7 x 6.4 cm) on CT imaging February 25, 2022. 04/01/2022 Surgery and Procedures Exploratory laparotomy with resection of the IVC leiomyosarcoma, right nephrectomy and IVC gore-texgraft reconstruction. Max dimension 7.3 cm. Margins negative. 80% viable tumor. 01/27/[address] chest raises concern for newly enlarging nodule in the lingula measuring 6 mm. Other lung nodules stable. In July 2024 he had a PET-CT scan which showed a satisfactory response to therapy with smaller andless trazodone avid intramuscular masses, stable bilateral lung nodules measuring up to 2.9 cm, stable postsurgical change in the right retroperitoneum with IVC reconstruction. He remained on pazopanib, and repeat imaging in October 2024 had not changed significantly. On February 07, 2025 the follow-up scans showed overall findings most suggestive for ppaz-dl-kpupqpxd progression of metastases involving the bones, lungs, lymph nodes and soft tissue and muscles. Pancreatic/peripancreatic region foci with new or mildly increased FDG uptake indeterminate likely metastatic as per the radiologist. At that point Dr. Akhtar advised increasing the pazopanib dose to 400 mg daily alternating 200 mg with 400 mg. Over the next few months, the dose of votrient was increased to 200 mg daily starting the first week of February. He reports stable blood pressure readings in the 120s-130s/70s-85s. He has experiencedpersistent diarrhea, managed with Imodium, and notes that without it, he would have diarrhea with every bowel movement. He also reports a decreased appetite and altered taste and smell, stating that food does not appeal to him as much as it used to. He has unintentionally lost weight, now weighing approximately 165 lbs, down from 200 lbs prior to starting treatment. He denies any new or worseningsymptoms related to his diarrhea. SUBJECTIVE I met with Ryan and his for followup visit. He reports worsening GI symptoms, including increased diarrhea (typically 3 times daily), occasional vomiting, and decreased appetite. He denies heartburn or nausea. He reports that food no longer tastes good. He also reports ongoing muscle loss despite working out twice a week with a workplace trainer and assessor. He reports that he has to wear diapers due to the diarrhea. He is currently taking Zofran for nausea, Pepto-Bismol and Tums as needed for GI symptoms, and Imodium for diarrhea. He reports that Pepto-Bismol and Tums provide some relief. He is currently taking 3 unspecified pills, which were increased on 04/01. He is also taking Coreg,Norvasc, and clonidine for HTN, and a cholesterol medication at night. He reports that his blood pressure is generally stable, though it tends to be higher in the mornings. He is planning to see his PCP in [place], [place] for knee injections and to discuss his blood pressure management. OBJECTIVE VITAL SIGNS BP (!) 162/93 Pulse 73 Temp 36.4 ??C (Temporal) Wt 75.8 kg BMI 26.16 kg/m?? 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 GI sideeffects (diarrhea, decreased appetite, altered taste, occasional vomiting) more pronounced since dose increase, but patient tolerating regimen. Weight loss and muscle loss ongoing, likely medication-related. Blood pressure stable overall, with some morning elevations. Labs: protein improved, no concerning abnormalities. No new focal abdominal pain or signs of pancreatitis. Cardiac function remains preserved. Port in place for labs. Quality of life discussed; patient aware of incurable nature and balancing side effects with disease control. - Continue Votrient 600 mg daily (3 pills). - Monitor labs (CBC, CMP, LFTs, TSH) every 2 weeks for first month after dose increase, then monthly if stable. - Schedule next PET scan for late May 2025 (target week of Jun 08-) after 2+ months on current dose; coordinate with patient upon return from [place]. - Continue Imodium as needed for diarrhea; patient instructed on use. - Continue Zofran as needed for nausea. - Supportive care for GI side effects (Pepto-Bismol, Tums) as needed. - Maintain port for labs; continue monthly flushes. - Patient to monitor and record morning blood pressure daily before medications; follow up with primary care in [place] regarding hypertension management and knee injections. - Discussed risks/benefits of ongoing therapy and alternative options if progression or intolerableside effects. - Follow up after PET scan or sooner if symptoms worsen or questions arise. # Hypothyroidism TSH mildly elevated at 5.6 (previously 4.3), free T4 normal. No intervention indicated at this time. - Recheck TSH and free T4 with next routine labs. - No treatment needed unless TSH rises above 10 or symptoms develop. 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
--- OUTSIDE RECORDS SUMMARY | 2025-04-22 13:00 | XMS_ITS | Encounter Summary ---
Author Organization [facility] Address [address] [place] [address] Care Team Providers Care Contact Finger Assembler Name Role Phone Elsewhere, Pcp Primary Care Provider Unavailabl e Encounter Details DateTypeDepartmentCare Team (Latest Contact Info)Pbvniozukyu39/05/2025 12:00 PM [facility] Department of Oncology in [place], [place] [address] [place] [address] Boy Gorman M.D. [address] [place] [address] Secondary Malignant Neoplasm Soft Tissue (HCC) (Primary Dx); Dysfunction Thyroid Social History Tobacco UseTypesPacks/DayYears UsedDateSmoking Tobacco: FormerCigarettes0.8102.5 1969 - 11/16/1968Smokeless Tobacco: FormerSnuffQuit: 11/16/1997Alcohol Use Standard Drinks/WeekCommentsNot Currently0 (1 standard drink = 0.6 oz pure alcohol)WineC UtilitiesAnswerDate RecordedIn the past 12 months has the electric, gas, oil, or water [employer] threatened to shut off services in your [...] live06/09/2024Sex and Gender InformationValueDate RecordedSex Assigned at QsjyqXewo87/06/2019 8:03 AM CDTLegal SogApuh3906/20/2016 5:55 AM [employer] Gender EauqglyiFslu68/06/2019 8:03 AM CDTSexual MznkryyqbwhXasxqmxb26/06/2019 8:03 AM CDTdocumented as of this encounter Plan of Treatment DateTypeDepartmentCare Team (Latest Contact Info)Dcdtfvafwwo14/21/2026 1:45 PM MSTAppointment Department of Radiology, [facility], in [place], [place] [address] [place] [address] Boy Gorman M.D. [address] [place] [address] documented as of this encounter Procedures Procedure NamePriorityDate/TimeAssociated DiagnosisCommentsT4 (THYROXINE), FREE, CNlgaddl07/05/2025 11:28 AM MST Dysfunction Thyroid documented in this encounter Results * T4 (Thyroxine), Free (04/22/2025 11:28 AM MST)ComponentValueRef RangeTest MethodAnalysis TimePerformed AtPathologist SignatureT4 (Thyroxine), Free, S1.6 0.9 - 1.7 ng/dL04/22/2025 1:13 PM MSTAZPBSpecimen (Source)Anatomical Location / LateralityCollection Method / VolumeCollection TimeReceived TimeBlood (Blood, Venous)04/22/2025 11:28 AM MST04/22/2025 11:52 AM MST Narrative Authorizing ProviderResult TypeResult StatusMahesnicholas Gorman M.D.LAB BLOOD ADD-ONFinal ResultPerforming OrganizationAddressCity/State/ZIP CodePhone Number [facility] [address] [place] [address], [facility] [address] [place] [address] documented in this encounter Visit Diagnoses Diagnosis Secondary Malignant Neoplasm Soft Tissue (HCC)- Primary Dysfunction Thyroid documented in this encounter Administered Medications Medication OrderMAR ActionAction DateDoseRateSite heparin flush 500 Units 500 Units, intra-catheter, As needed, line care, Starting on Fri04/22/25 at 1119, When IVAD accessed and not infusing: When [...] each port/lumen. Indications:Secondary Malignant Neoplasm Soft Tissue (HCC)Given04/22/2025 11:32 AM KEL175 Units sodium chloride 0.9 % injection 10-20 mL 10-20 mL, intra-catheter, As needed, line care, Starting on Fri04/22/25 at 1119, When IVAD accessedand infusing: Flush prior to and following infusion, between multiple consecutive infusions. 10 mL to each port/lumen. Indications:Secondary Malignant Neoplasm Soft Tissue (HCC)Given04/22/2025 11:32 AM MST20 mLdocumented in this encounter Additional Health Concerns InfectionOnset DateLast IndicatedResolved TimeProtective Dteskxkecpk35/10/2025 06/28/2024documented as of this encounter Care Teams Team MemberRelationshipSpecialtyStart DateEnd Date Elsewhere, Pcp PCP - GeneralInternal Medicine09/24/24documented as of this encounter
[2025-05-16 10:14] VITALS: BP 148/101; PULSE 81; RESP 16; TEMP 36.6; O2SAT 98; BMI 24.7
--- OUTSIDE RECORDS SUMMARY | 2025-05-16 10:18 | XMS_ITS | Clinical Summary ---
Author Organization [facility] Address [address] [place] [address] Care Team Providers Care Rubber Belt Splicer Name Role Phone Georgia Turner RN Unavailable Unavailabl e Pcp, No Primary Care Provider Unavailabl e Allergies No known active allergies Medications MedicationSigDispense QuantityRefillsLast FilledStart DateEnd DateStatus sennosides (SENNA) 8.6 mg tablet Take 17.2 mg by mouth once daily if needed.08/17/2021ctive melatonin 3 mg tablet Take 1 Tablet (3 mg) by mouth once daily.ctive Vitamins-Lipotropics tab Take 2 Tablets by mouth 2 times daily.ctive gkkvwysb-rcvhxegrbyf-fxxf cb25 116-100 mg cap Take 1 Tablet by mouth once daily.Active triamcinolone, 55 mcg each actuation, nasal (NASACORT AQ) 55 mcg nasal spray Inhale 1 [place] into affected nostril(s) one time if needed.Active acetaminophen (TYLENOL EXTRA STRGTH) 500 mg tablet Indications:Leiomyosarcoma (HC)Take 2 Tablets (1,000 mg) by mouth every 6 hours if needed for Pain. Max acetaminophen dose: 4000mgin 24 hrs.10/11/2021ctive albuterol HFA (PRO-AIR; VENTOLIN; PROVENTIL) 90 mcg/actuation inhaler Indications:WheezingInhale 2 Puffs by mouth 4 times daily if needed for Wheezing. 1 Each ctive guaiFENesin (ORGANIDIN-NR) 200 mg tablet Indications:Cough, unspecified typeTake 1 Tablet (200 mg) by mouth every 4 hours if needed for Expectoration. 60 Tablet 02/27/2022ctive calcium carbonate (TUMS) 200 mg calcium (500 mg) chewable tablet Chew 1 Tablet (500 mg) by mouth 4 times daily if needed for Heartburn.0 04/09/2022ctive docusate (COLACE) 100 mg capsule Take 100 mg by mouth.08/18/2021ctive Sodium Fluoride 1.1 % pste 06/14/2022ctive rivaroxaban (XARELTO) 20 mg tablet Indications:Leiomyosarcoma (HC)Take 1 Tablet (20 mg) by mouth once daily with evening meal. 7 Tablet 02/14/2023ctive atorvastatin (LIPITOR) 10 mg tablet Indications:Hyperlipidemia, unspecified hyperlipidemia typeTake 1 Tablet (10 mg) by mouth once daily. 90 Tablet ctive cloNIDine 0.2 mg/24 hr (SCMXDDGX-HMC-8) 0.2 mg/24 hr patch Indications:HTN (hypertension)Apply on dry, clean, hairless skin. 12 Patch ctive amLODIPine (NORVASC) 2.5 mg tablet Indications:HTN (hypertension)Take 1 Tablet (2.5 mg) by mouth once daily. 90 Tablet ctive pantoprazole (PROTONIX) 40 mg delayed-release tablet Indications:History of gastroesophageal reflux (GERD)Take by mouth. 90 Tablet 03/07/2023ctive rivaroxaban (XARELTO) 20 mg tablet Take 1 Tablet (20 mg) by mouth once daily with evening meal.ctive carvediloL (COREG) 6.25 mg tablet Indications:HTN (hypertension)TAKE 1 TABLET(6.25 MG) BY MOUTH TWICE DAILY WITH MEALS 180 Tablet ctive rivaroxaban (Xarelto) 20 mg tablet Indications:Leiomyosarcoma (HC)TAKE 1 TABLET(20 MG) BY MOUTH EVERY DAY WITH THE EVENING MEAL 7 Tablet 05/05/2023ctive Active Problems ProblemNoted DateDiagnosed DateMalignant neoplasm of zeangdnmndzsbrg61/20/2023 Pulmonary embolism, unspecified chronicity, unspecified pulmonary embolism type, unspecified whether acute cor pulmonale upuecfp7204/12/2022Leiomyosarcoma 09/24/2021History of stress test09/07/2021 Overview (09/07/2021): 08/2021 1. ??Normal myocardial perfusion. 2. ??Normal left venticular function. HTN (hypertension)09/07/20219842Sneqhjcjjscndp71/22/2022granulocytosis secondary to cancer chemotherapy (CODE) (HC) Immunizations ImmunizationAdministration DatesNext DueHepatitis A (Adult)09/07/2010,06/22/2010 ,09/10/2002Hepatitis B (Adult)10/04/2013Hepatitis B, Cszseetnenf40/06/2015, 09/20/2013,09/13/20130753Qyppes66/19/2014,09/20/2013,09/13/2013Inactivated Polio Qhfntmq3409/10/2002Influenza Virus, Wytccfaefdm15/27/2019,04/16/2017,03/15/2014 Influenza, IIV3 (Age 6-35 mos)09/07/2010Influenza, Inactivated AIIV4 (Age 65+ Years) Preserv Free03/01/2022neumococcal Poly,23-Valent (Pneumovax)06/18/2013, 05/19/2012Pneumococcal conj 13-Valent (Prevnar 13)04/14/2019,08/30/2015Rabies [place]4710/04/2013TD, NJPOGJHGZOJ14/28/1994Td (Age >=7 Years)03/15/1994Tdap 05/19/2012,03/28/2008Typhoid (injectable)09/07/2010,09/10/2002Typhoid, Djyejnazmuh81/28/2014,07/02/2010Zoster (Zostavax-ZVL, live)03/15/2014 Family History Medical HistoryRelationNameCommentsCancer-breastSisterRelationNameStatusComments Sister Social History Tobacco UseTypesPacks/DayYears UsedDateSmoking Tobacco: FormerCigarettes0.520 Smokeless Tobacco: FormerChew Tobacco Cessation:Counseling Given: Not Answered Comments:quit >15 years ago Alcohol UseStandard Drinks/WeekCommentsNot Currently0 (1 standard drink = 0.6 oz pure alcohol)very rare- HolidaysPHQ-2AnswerDate RecordedPHQ-2 TOTAL SCORE0 2Social ConnectionsAnswerDate RecordedFrequency of Communication with Friends and Mcpamw635Financial Resource StrainAnswerDate Recorded Difficulty of Paying Living Sbqvknlw168ifficulty of Paying Living ExpensesNot on file09/07/2021Food InsecurityAnswerDate RecordedWorried About Running Out of Food in the Last Ptfp787Transportation NeedsAnswerDate RecordedLack of Transportation (Medical)Housing StabilityAnswerDate RecordedUnable to Pay for Housing in the Last Ullx557ex and Gender InformationValueDate RecordedSex Assigned at BirthNot on fileLegal SexMale 08/22/2021 11:39 AM CDTGender IdentityNot on fileSexual OrientationNot on file Last Filed Vital Signs Vital SignReadingTime TakenCommentsBlood Hvxnogzi264/8211/11/2023 11:19 AM CDT Jvtih060011/11/2023 11:19 AM ZMTKnfogrzcznv33.7 ??C (98 ??F)11/11/2023 11:19 AM CDTRespiratory Wbaq944311/11/2023 11:19 AM CDTOxygen Wfbxcuncpo91%11/11/2023 11:19 AM CDTInhaled Oxygen Concentration--Jywznh64.2 kg (190 lb)11/11/2023 11:19 AM XHOVzjvai991.2 cm (5' 7)11/11/2023 11:19 AM CDTBody Mass Index29.76011/11/2023 11:19 AM CDT Plan of Treatment Health MaintenanceDue DateLast DoneCommentsHepatitis C screening for age 18-79 1965Hepatitis B series for 19+ (3 of 3 - 19+ 3-dose series)08/19/2014 06/24/2014, 10/04/2013, 09/20/2013, Additional history existsTetanus booster /05/2012, 03/28/2008, 03/15/1994, Additional history existsRSV vaccine for adults or (1 - 1-dose 75+ series)2022epression screening for age 12+Medicare Wellness for age 65+09/08/2022 09/07/2021MI (ht and wt on same day) for age 18+/, 07/25/2023, 05/02/2023, Additional history existsCOVID-19 vaccine series (2 - season)/Influenza Vaccine (#1), 04/14/2019, 04/16/2017, Additional history existsZoster (shingles) series for age 50+ (2 of 3)Postponed from 05/10/2014 (Provider discretion)Pneumococcal series for age 50+Cvqsuranv88/27/2019, 08/30/2015, 06/18/2013, Additional history exists Medical Devices ImplantedTypeAreaManufacturerDevice IdentifierShelf Expiration DateModel / Serial / LotPort Med Profile Mri Plst W/8fr 1 n - [id number] Implanted:Qty: 1 on 10/11/20[facility]: [employer]02/15/2022 [id number] / / [id number] Vasc [id number] [place] Std Wall Ring Implanted:Qty: 1 on 04/01/2022 by Dominick Wei MD at [facility]12/15/[id number] / [id number] / Description:GRAFT VASC [id number] [employer]OSH STRA STD WALL RING Insurance Advance Directives * Full Code (Latest Code Status on File) Date ActivatedDate ZllwkyvrufvGieoxlko06/14/2022 6:10 AM04/09/2022 1:50 PM QuestionAnswerCommentsCode Status Discussion:* Reviewed Preferences * Full Code Date ActivatedDate InactivatedComments10/11/2021 11:32 AM10/11/2021 9:08 PM QuestionAnswerCommentsCode Status Discussion:* Unable to Assess Preferences, Provider to review later Care Teams Team MemberRelationshipSpecialtyStart DateEnd Date Pcp, No PCP - Skejegb72/11/23 Georgia Turner, RN Nurse Navigator - OncologyRegistered Nurse08/22/21
--- OUTSIDE RECORDS SUMMARY | 2025-05-16 10:18 | XMS_ITS | Encounter Summary ---
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 [address] [place] [address] Phone: tel: fax: [facility] Referral IDSprincesstusReDeidre DateExpiration DateVisits RequestedVisits [id number]/7/20251/ [facility] Encounter Details DateTypeDepartmentCare Team (Latest Contact Info)Ryngtvhlrlw23/06/2025linical Communication Division of Hematology and Medical Oncology [address] [place] [address] Boy Gorman M.D. [address] [place] [address] Social History Tobacco UseTypesPacks/DayYears UsedDateSmoking Tobacco: FormerCigarettes0.8102.5 1969 - 11/16/1968Smokeless Tobacco: FormerSnuffQuit: 11/16/1997Alcohol Use Standard Drinks/WeekCommentsNot Currently0 (1 standard drink = 0.6 oz pure alcohol)[facility]OH[facility] UtilitiesAnswerDate RecordedIn the past 12 months has the [employer], gas, oil, or water [employer] threatened to shut off services in your [...] live06/09/2024Sex and Gender InformationValueDate RecordedSex Assigned at YmddtKlux99/06/2019 8:03 AM CDTLegal SasKile4606/20/2016 5:55 AM FUR SEWER Gender OxcrvlnpTrok45/06/2019 8:03 AM CDTSexual HoiylfosbjvHclifisd09/06/2019 8:03 AM CDTdocumented as of this encounter Miscellaneous Notes * Telephone Encounter - Gregoria Werner M.S.N., R.N. - 04/06/2025 2:27 PM MST ordered SEWER * Telephone Encounter - Teena Dockery R.N. - 02/21/2025 9:47 AM MST Incoming call received. Patient's identity verified with 2 approved identifiers. MEDICATION MANAGEMENT Provider: Vita Caller: Nathen from [facility] Medication Name/Dose: PAZOPanib (Votrient) 200 mg tablet Comments: Pharmacist was told by pt that he is supposed to be on 2 tablets daily instead of alternating between 1-2 tablets daily. Please send new rx to reflect or call pharmacy to clarify. Last Prescriber: Vita Pharmacy: [facility] ([facility]) #[id number] - [place], [place] - [address] [facility] [address] [facility] [address] Pharmacy Okay to leave a voicemail? Yes Okay to leave patient portal message: Yes RN informed caller a message will be sent to care team with details of resident care assistant call. Caller notified of timeframe for response. Caller verbalizes an understanding and acceptance of provided information. Denies any other questions or concerns. documented in this encounter Plan of Treatment DateTypeDepartmentCare Team (Latest Contact Info)Fhormvzonbo58/21/2026 1:45 PM MSTAppointment Department of Radiology, [facility], in [place], [place] [address] [place] [facility] [place] [address] Boy Gorman M.D. [address] [facility] [place] [address] documented as of this encounter Results * Urinalysis, with Microscopic: Urine, Midstream (03/09/2025 9:39 AM MST) ComponentValueRef RangeTest MethodAnalysis TimePerformed AtPathologist VsjyfwidfQbbuwitOgdna46/22/2025 10:52 AM MZGTTCFMkvkgTemeou96/22/2025 10:52 AM MSTAZMCpH, U5.54.5 - 8.010 10:52 AM MSTAZMCSpecific Gravity1.0151.002 - 1.6507503/09/2025 10:52 AM MSTAZMCGlucoseNEGNEG mg/dL03/09/2025 10:52 AM MST AZMCProtein, UNEGNEG mg/dL03/09/2025 10:52 AM CYKKETSEvannqbofELERCD06/22/2025 10:52 AM MSTAZMCUrobilinogen<0.2NORMAL mg/dL03/09/2025 10:52 AM [facility] Hemoglobin, SCKQLTRD56/22/2025 10:52 AM MSTAZMCKetonesNEGNEG mg/dL03/09/2025 10:52 AM MSTAZMCLeukocyte KwlbobqbMRZAZA99/22/2025 10:52 AM MSTAZMCNitrite, U KENHJS6103/09/2025 10:52 AM MSTAZMCWhite Blood Cells<10 - 3 /hpf03/09/2025 10:52 AM MSTAZMCSpecimen (Source)Anatomical Location / LateralityCollection Method / VolumeCollection TimeReceived TimeUrine (Urine, Midstream)03/09/2025 9:39 AM MST03/09/2025 9:44 AM [facility] Narrative Authorizing ProviderResult TypeResult StatusMahesnicholas Gorman M.D.LAB URINE ORDERABLESFinal ResultPerforming OrganizationAddressCity/State/ZIP CodePhone Number [facility] [address] [place] [address], [facility] [phone] [facility] [phone] [place] [address] * (ABNORMAL) Thyroid Function [place] (03/09/2025 9:38 AM [facility])ComponentValueRef RangeTest MethodAnalysis TimePerformed AtPathologist SignatureTSH, Sensitive 4.31(H)0.30 - 4.20 mIU/L1 12:33 PM MSTAZMCSpecimen (Source)Anatomical Location / LateralityCollection Method / VolumeCollection TimeReceived Time Blood (Blood, Venous)03/09/2025 9:38 AM [facility]03/09/2025 9:46 AM [facility] Narrative Authorizing ProviderResult TypeResult StatusBoy Gorman M.D.LAB BLOOD ADD-ONFinal ResultPerforming OrganizationAddressCity/State/ZIP CodePhone Number [facility] [address] [place] [address], [facility] [phone] [facility] [id number] [place] [address] * Bilirubin, Direct (03/09/2025 9:38 AM [facility])ComponentValueRef RangeTest Method Analysis TimePerformed AtPathologist SignatureBilirubin, Direct, S0.30.0 - 0.3 mg/dL03/09/2025 12:33 PM MSTAZMCSpecimen (Source)Anatomical Location / LateralityCollection Method / VolumeCollection TimeReceived TimeBlood (Blood, Venous)03/09/2025 9:38 AM [facility]03/09/2025 9:46 AM [facility] Narrative Authorizing ProviderResult TypeResult StatusBoy Gorman M.D.LAB BLOOD ADD-ONFinal ResultPerforming OrganizationAddressCity/State/ZIP CodePhone Number [facility] [address] [place] [address], [facility] [phone] [facility] [id number] [place] [address] * ECG 12 Lead (03/07/2025 3:53 PM [facility])ComponentValueRef RangeTest MethodAnalysis TimePerformed AtPathologist SignatureVentricular Rate ECG/Yjc17YTYTWGMZW Sbsunwrz953viGEZINELQ Mqkzykrz816oiIFIRIP Yhjvonup312duYOTGVNS Olgwjuas499zq MUSEP Udyc73xpvdbmyWUIIV Overgaard-47degreesMUSET Wave Ffqe01eoauwypLTUJBioklold (Source)Anatomical Location / LateralityCollection Method / VolumeCollection TimeReceived Time03/07/2025 3:53 PM MST03/08/2025 11:04 AM [facility] Impressions MUSE - 03/08/2025 11:04 AM [facility] Normal sinus rhythm Right bundle branch block Left anterior fascicular block Bifascicular block Abnormal ECG When compared with ECG of 24-Sep-2024 07:17, Nonspecific T wave abnormality has replaced inverted T waves in Inferior leads Narrative Procedure Note Timi Jasmine M.D. - 03/08/2025 IMPRESSION: Normal sinus rhythm Right bundle branch block Left anterior fascicular block Bifascicular block Abnormal ECG When compared with ECG of 24-Sep-2024 07:17, Nonspecific T wave abnormality has replaced inverted T waves in Inferiorleads Authorizing ProviderResult TypeResult StatusMahesnicholas Gorman M.D.ECG ORDERABLES Final ResultPerforming OrganizationAddressCity/State/ZIP CodePhone Number MUSE NA * (TTE) 2D ECHO DOPPLER COLOR (03/07/2025 3:52 PM [facility])ComponentValueRef Range Test MethodAnalysis TimePerformed AtPathologist SignatureEjection Cjkticlm69UU CV EIMSMid-Ascending Mawmn58YQ CV EIMSLV Mass Jekmm67YG CV EIMSLV End- Diastolic Cxjdmesm58UW CV EIMSLV End-Systolic Qhbggbhc98BX CV EIMSLV End- Diastolic Gjpxnf55PG CV EIMSLV End-Systolic Yuntjq80KJ CV EIMSMV E Velocity0.3 MC CV EIMSMV A Velocity0.7MC CV EIMSMV E/A0.43MC CV EIMSMV e' Velocity Medial 0.04MC CV EIMSMV e' Velocity Lateral0.07MC CV EIMSMV E/e' Medial7.5MC CV EIMS MV E/e' Lateral4.3MC CV EIMSLeft ventricular stroke volume sdagh19JL CV EIMS Cardiac Output5.24MC CV EIMSCardiac Index2.8MC CV EIMSLV Global Longitudinal Strain-17MC CV EIMSLV Interventricular Septal Wall Pskjkjslc88DY CV EIMSLV Posterior Wall Ubypbbriy5LF CV EIMSLV Relative Wall Uqefehkcq48NB CV EIMSTAPSE 13MC CV EIMSTricuspid Annular S???0.09MC CV EIMSTR Vmax2.8MC CV EIMSEstimated RA Pressure (Echo RAP)5MC CV EIMSRV Systolic Pressure (with Echo RAP)36MC CV EIMSTR Vmax/RVOT TVI0.3MC CV EIMSAV mean iiywdkbm5JM CV EIMSAortic valve area 3.46MC CV EIMSAortic Valve Dimensionless Index0.83MC CV EIMSLA Volume Index29 MC CV EIMSAortic Valve Systolic Peak Velocity1.2MC CV EIMSAnatomical Region LateralityModalityOtherSpecimen (Source)Anatomical Location / Laterality Collection Method / VolumeCollection TimeReceived Time03/07/2025 2:31 PM [facility] Impressions 03/07/2025 4:34 PM [facility] Echocardiographic images interpreted at [facility]. Color flow and spectral Doppler performed in part to assess valvular heart disease. There are no previous [facility] echocardiograms available for comparison. LEFT VENTRICLE:Normal left ventricular chamber size. Calculated 3-D volumetric left ventricular ejection fraction 61%. Strain imaging examination performed to assess left ventricular function. Globalaveraged left ventricular longitudinal peak systolic strain is borderline at -17% (normal = more negative than -18%). Normal left ventricular filling pressure. No regional wall motion abnormalities. RIGHT VENTRICLE:Normal right ventricular chamber size. Borderline reduced right ventricular systolic function. Right ventricular systolic pressure 36 mmHg (right atrial pressure of 5 mmHg). ATRIA:Normal left atrial size. Left atrial volume index 29 ml/m2. Strain imaging examination performed to assess left atrial function. Global averaged left atrial biplane longitudinal peak systolic strain is abnormal at 27.0% (normal is greater than 35%). Normal right atrial size by visual estimate. CARDIAC VALVES:Trileaflet aortic valve. Sclerotic aortic valve. Trivial aortic valve regurgitation.Mildly calcified mitral annulus. Mitral valve bowing. Mild- moderate MR. Difficult to quantitate. Normal pulmonary valve. Trivial pulmonary valve regurgitation. Normal tricuspid valve. Mild tricuspid valve regurgitation. OTHER ECHO FINDINGS:Normal inferior vena cava size with normal inspiratory collapse (>50%). Normal mid ascending aorta diameter of 36 mm. Upper limit of normal of the mid ascending aorta, for age,sex and BSA is 42 mm. Imaging inadequate for detection of atrial level shunt by color flow imaging. No intracardiac mass or thrombus, but the left atrial appendage cannot be visualized adequately with transthoracic echo to exclude thrombus in this location.Prominent anterior epicardial fat layer. No ?? pericardial effusion. For the complete report, see the Order-Level Documents. Narrative 03/07/2025 4:34 PM MST For the complete report, see the Order-Level Documents. Hemodynamics Heart Rate: 73 BPM Blood Pressure: 133 / 78 mmHg ECG: Sinus rhythm Final Impressions 1. Normal left ventricular chamber size, no regional wall motion abnormalities, calculated 3-D volumetric ejection fraction 61%, global averaged longitudinal peak systolic strain is borderline at -17% (normal = more negative than -18%). 2. Normal left atrial size. 3. Normal left ventricular filling pressure. 4. Mitral valve bowing. Mild-moderate MR. Difficult to quantitate (one jet is eccentric). 5. Normal right ventricular chamber size, borderline reduced systolic function, right ventricular systolic pressure 36 mmHg (right atrial pressure of 5 mmHg). 6. No ??pericardial effusion. 7. There are no previous [facility] echocardiograms available for comparison. Procedure Note Anusha Avelar M.D. - 03/07/2025 For the complete report, see the Order-Level Documents. Hemodynamics Heart Rate: 73 BPM Blood Pressure: 133 / 78 mmHg ECG: Sinus rhythm Final Impressions 1. Normal left ventricular chamber size, no regional wall motionabnormalities, calculated 3-D volumetric ejection fraction 61%, globalaveraged longitudinal peak systolic strain is borderline at -17% (normal =more negative than -18%). 2. Normal left atrial size. 3. Normal left ventricular filling pressure. 4. Mitral valve bowing. Mild-moderate MR. Difficult to quantitate (one jetis eccentric). 5. Normal right ventricular chamber size, borderline reduced systolicfunction, right ventricular systolic pressure 36 mmHg (right atrialpressure of 5 mmHg). 6. No pericardial effusion. 7. There are no previous [facility] echocardiograms available forcomparison. Findings Echocardiographic images interpreted at [facility].Color flow and spectral Doppler performed in part to assess valvular heartdisease. There are no previous [facility] echocardiograms available forcomparison. LEFT VENTRICLE:Normal left ventricular chamber size. Calculated 3-Dvolumetric left ventricular ejection fraction 61%. Strain imagingexamination performed to assess left ventricular function. Global averagedleft ventricular longitudinal peak systolic strain is borderline at -17%(normal = more negative than -18%). Normal left ventricular fillingpressure. No regional wall motion abnormalities. RIGHT VENTRICLE:Normal right ventricular chamber size. Borderline reducedright ventricular systolic function. Right ventricular systolic efcwntgm55 mmHg (right atrial pressure of 5 mmHg). ATRIA:Normal left atrial size. Left atrial volume index 29 ml/m2. Strainimaging examination performed to assess left atrial function. Globalaveraged left atrial biplane longitudinal peak systolic strain is abnormalat 27.0% (normal is greater than 35%). Normal right atrial size by visualestimate. CARDIAC VALVES:Trileaflet aortic valve. Sclerotic aortic valve. Trivialaortic valve regurgitation. Mildly calcified mitral annulus. Mitral valvebowing. Mild- moderate MR. Difficult to quantitate. Normal pulmonary valve.Trivial pulmonary valve regurgitation. Normal tricuspid valve. Mildtricuspid valve regurgitation. OTHER ECHO FINDINGS:Normal inferior vena cava size with normal inspiratory collapse (>50%). Normal mid ascending aorta diameter of 36 mm. Upper limitof normal of the mid ascending aorta, for age, sex and BSA is 42 mm.Imaging inadequate for detection of atrial level shunt by color flowimaging. No intracardiac mass or thrombus, but the left atrial appendagecannot be visualized adequately with transthoracic echo to excludethrombus in this location. Prominent anterior epicardial fat layer. Nopericardial effusion. For the complete report, see the Order-Level Documents. 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
--- OUTSIDE RECORDS SUMMARY | 2025-05-16 10:18 | XMS_ITS | Encounter Summary ---
Author Organization [facility] Address [address] [place] [address] Care Team Providers Care Ux Engineer Name Role Phone Elsewhere, Pcp Primary Care Provider Unavailabl e Encounter Details DateTypeDepartmentCare Team (Latest Contact Info)Ylwkjvfftpq09/19/2025Orders Only Division of Hematology and Medical Oncology [address] [place] [address] Gregoria Werner M.S.N., R.N. 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); Sarcoma (HCC) Social History Tobacco UseTypesPacks/DayYears UsedDateSmoking Tobacco: FormerCigarettes0.8102.5 1970 - 11/16/1968Smokeless Tobacco: FormerSnuffQuit: 11/16/1997Alcohol Use Standard Drinks/WeekCommentsNot Currently0 (1 standard drink = 0.6 oz pure alcohol)[employer] UtilitiesAnswerDate RecordedIn the past 12 months has the electric, gas, oil, or water company threatened to shut off services in your home?No01/22/2025Hunger Vital SignAnswerDate RecordedWithin the past 12 months, [...] live06/09/2024Sex and Gender InformationValueDate RecordedSex Assigned at KfwfcAvzo50/06/2019 8:03 AM CDTLegal SkmEnte1806/20/2016 5:55 AM BOOK BINDER Gender OandzmhjWgvl81/06/2019 8:03 AM CDTSexual DndqkigzymkTpncbnub47/06/2019 8:03 AM CDTdocumented as of this encounter Plan of Treatment DateTypeDepartmentCare Team (Latest Contact Info)Ybpxqtzilqg08/21/2026 1:45 PM MSTAppointment Department of Radiology, [facility], in [place], [place] [address] [place] [address] Boy Gorman M.D. [address] [place] [address] documented as of this encounter Results * (ABNORMAL) S-TSH (Thyroid-Stimulating Hormone - Sensitive) (04/21/2025 3:01 PM MST)ComponentValueRef RangeTest MethodAnalysis TimePerformed AtPathologist SignatureTSH, Sensitive5.6(H)0.3 - 4.2 mIU/L106/22/2024 5:14 PM MSTAZMCSpecimen (Source)Anatomical Location / LateralityCollection Method / VolumeCollection TimeReceived TimeBlood (Blood, Venous)04/21/2025 3:01 PM MST04/21/2025 3:13 PM MST Narrative Authorizing ProviderResult TypeResult StatusMaoksana Gorman M.D.LAB BLOOD ADD-ONFinal ResultPerforming OrganizationAddressCity/State/ZIP CodePhone Number [facility] [address] [place] [address], [facility] [phone] [facility] [address] [place] [address] * (ABNORMAL) Comprehensive Metabolic Panel (04/21/2025 3:01 PM MST)Component ValueRef RangeTest MethodAnalysis TimePerformed AtPathologist Signature Potassium, S4.73.6 - 5.2 mmol/L106/22/2024 5:14 PM MSTAZMCSodium, U753437 - 145 mmol/L106/22/2024 5:14 PM MSTAZMCChloride, E03263 - 107 mmol/L106/22/2024 5:14 PM MSTAZMCBicarbonate, S2322 - 29 mmol/L106/22/2024 5:36 PM MSTAZMCAnion Vfy673 - 15106/22/2024 5:36 PM MSTAZMCBUN (Blood Urea Nitrogen), S11.38.0 - 24.0 mg/dL 04/21/2025 5:14 PM MSTAZMCCreatinine1.010.74 - 1.35 mg/dL04/21/2025 5:32 PM MSTAZMCEstimated GFR (eGFR)77>=60 mL/min/BSA04/21/2025 5:32 PM MSTAZMCComment: Estimated GFR calculated using the 2020 CKD_EPI creatinine equation. Calcium, Total, S9.78.8 - 10.2 mg/dL04/21/2025 5:43 PM MSTAZMCGlucose, X98478 - 140 mg/dL04/21/2025 5:32 PM MSTAZMCProtein, Total, [...] M.D.LAB BLOOD ADD-ONFinal ResultPerforming OrganizationAddressCity/State/ZIP CodePhone Number [facility] [address] [place] [address], [facility] [phone] [facility] [address] [place] [address] * (ABNORMAL) CBC with Differential, Blood (04/21/2025 3:01 PM MST)ComponentValue Ref RangeTest MethodAnalysis TimePerformed AtPathologist SignatureHemoglobin 14.013.2 - 16.6 g/dL04/21/2025 3:37 PM EWRABNFMymlpsqxje11.238.3 - 48.6 % 04/21/2025 3:37 PM MSTAZMCErythrocytes4.00(L)4.35 - 5.65 x10(12)/L106/22/2024 3:37 PM JETIBNUXTZ954.0(H)78.2 - 97.9 fL04/21/2025 3:37 PM MSTAZMCRBC Distrib Width15.7(H)11.8 - 14.5 %04/21/2025 3:37 PM MSTAZMCPlatelet Ziabn944601 - 317 x10(9)/L106/22/2024 3:37 PM MSTAZMCLeukocytes6.23.4 - 9.6 x10(9)/L106/22/2024 3:37 PM MSTAZMCNeutrophils3.291.56 - 6.45 x10(9)/L106/22/2024 3:37 PM MSTAZMH Lymphocytes2.300.95 - 3.07 x10(9)/L106/22/2024 3:37 PM [facility]ENTERAZMCMonocytes0.420.26 - 0.81 x10(9)/L106/22/2024 3:[address] [address] [facility]EREosinophils0.140.03 - 0.48 x10(9)/L 04/21/2025 3:[address] [facility]ENTERBasophils0.030.01 - 0.08 x10(9)/L106/22/2024 3:37 PM [facility]ENTERAZMCSpecimen (Source)Anatomical Location / LateralityCollection Method / VolumeCollection TimeReceived TimeBlood (Blood, Venous)04/21/2025 3:01 PM MST 04/21/2025 3:13 PM [facility] Narrative Authorizing ProviderResult TypeResult StatusMahesnicholas Gorman M.D.LAB BLOOD ADD-ONFinal ResultPerforming OrganizationAddressCity/State/ZIP CodePhone Number [facility] [address] [place] [address], [facility] [phone] [facility] [address] [place], [place] [address] [place] [address] [place] [address] documented in this encounter Visit Diagnoses Diagnosis 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
--- OUTSIDE RECORDS SUMMARY | 2025-05-16 10:18 | XMS_ITS | Clinical Summary ---
Author Organization [facility] Health Address [address] [place] [address] Care Team Providers Care Dental Instrument Maker Name Role Phone Unavailable Primary Care Provider Unavailabl e Allergies No known active allergies Medications MedicationSigDispense QuantityRefillsLast FilledStart DateEnd DateStatus atorvastatin (LIPITOR) 10 mg tablet Take 10 mg by mouth 1 (one) time each day.07/04/2020ctive triamcinolone (NASACORT) 55 mcg nasal inhaler Administer 1 spray into affected nostril(s) 1 (one) time each day if needed. Active fluoride, sodium, 1.1 % paste Apply to teeth twice a day. Rinse and spit. 112 g 11006/12/2022ctive albuterol HFA (PROVENTIL HFA;VENTOLIN HFA) 90 mcg/actuation inhaler Inhale 2 puffs 4 (four) times a day if needed.02/11/2022ctive amLODIPine (NORVASC) 2.5 mg tablet Take 2.5 mg by mouth 1 (one) time each day.12/10/2021ctive carvediloL (COREG) 6.25 mg tablet Take 6.25 mg by mouth in the morning and 6.25 mg in the evening.09/07/2021ctive cloNIDine (CATAPRES-TTS) 0.2 mg/[address] 1 patch on the skin every 7 (seven) days.Active docusate sodium (COLACE) 100 mg capsule Take 100 mg by mouth 1 (one) time each day.08/18/2021ctive bgfimiwl-ahsbxziyohm-vrsb cb25 116-100 mg capsule Take 1 tablet by mouth 1 (one) time each day.Active guaiFENesin 200 mg tablet Take 200 mg by mouth every 4 (four) hours if needed.02/27/2022ctive melatonin 3 mg tablet Take 3 mg by mouth 1 (one) time each day.09/07/2021ctive pantoprazole (PROTONIX) 40 mg EC tablet Take 40 mg by mouth 1 (one) time each day.12/10/2021ctive rivaroxaban (XARELTO) 20 mg tablet Take 20 mg by mouth 1 (one) time each day.04/12/2022ctive Active Problems ProblemNoted DateDiagnosed DateAgranulocytosis secondary to cancer chemotherapy (CODE)3Pulmonary cqbsegik30/25/2022History of stress test09/07/2021 Overview (06/12/2022): 08/2021 1. Normal myocardial perfusion. 2. Normal left venticular function. HTN (hypertension)09/07/20217686Bxuhsfmjmodfmo88/28/2022Osteoarthritis of knee 06/01/2019Seasonal lmxhzivrd64/08/2019Knee pain09/23/2018Pityriasis rosea 09/23/20187168Xgxgdsrr30/08/2019History of adenomatous polyp of colon09/23/2018 Finding of above normal blood sytejthj02/09/2019Obesity with body mass index 30 or idzmbwm9208/25/20181973Brqbiwriujohyv61/01/2014 Overview (06/04/2021): Hyperlipidemia On Treatment Social History Tobacco UseTypesPacks/DayYears UsedDateSmoking Tobacco: JavwzfVzkaeutago345 Smokeless Tobacco: NeverAlcohol UseStandard Drinks/WeekCommentsYes0 (1 standard drink = 0.6 oz pure alcohol)Sex and Gender InformationValueDate RecordedSex Assigned at BirthNot on fileLegal DooQrzc3206/09/2019 6:43 PM PSTGender Identity Not on fileSexual OrientationNot on file Last Filed Vital Signs Vital SignReadingTime TakenCommentsBlood Twsfbsgu350/90006/04/2021 7:59 AM MST Omlzw659806/04/2021 7:59 AM MSTTemperature--Respiratory Rate--Oxygen Saturation-- Inhaled Oxygen Concentration--Weight--Height--Body Mass Index-- Plan of Treatment Health MaintenanceDue DateLast DoneCommentsPeriodontal Ygamivkqfzl74/27/2021 09/11/2020, 09/20/2019, 07/07/2019Dental Oral Exam, 06/04/2021, 09/11/2020, Additional history existsDental X-Ray: Bitewings /ental X-Ray: Full Mouth/, 03/24/2019 Scaling and Root Xsylfhd13/, 06/04/2021, 06/04/2021, Additional history existsDental X-Ray: Infoenudh32/, 06/04/2021, 03/24/2019 Procedures Procedure NamePriorityDate/TimeAssociated DiagnosisCommentsPERIODIC ORAL EVALUATION - ESTABLISHED GUTAZEILpctpxs01/25/2023 3:00 PM MSTPANORAMIC RADIOGRAPHIC MWHUVGhwbaht03/17/2022 8:15 AM MSTUL PERIODONTAL SCALING AND ROOT PLANING - FOUR OR MORE TEETH PER NCAASULXKxpzldu70/17/2022 8:00 AM MSTPERIO LXAREOXCNTPLdrucbo62/26/2021 8:00 AM MSTINTRAORAL - COMPREHENSIVE SERIES OF RADIOGRAPHIC HAVVUHRcnfybb24/06/2019 1:00 AM MSTfrom Last 3 Months or Most Recently Relevant to Health Maintenance Insurance
--- OUTSIDE RECORDS SUMMARY | 2025-05-16 10:18 | XMS_ITS | Patient Health Record ---
Author Organization [facility] Address [address] [place] [address] Care Team Providers Care Certified Green Building Engineer Name Role Phone JESE, CHELITA Primary Care Provider [phone] Reason For Referral No Information Medications Medication SIG (Take, Route, Frequency, Duration) Notes Start Date End Date Status Kenalog 40 MG/ML 1 ml Injection once; Duration: 0 days 07/05/2015Active Problems Problem Type SNOMED Code ICD Code Onset Dates Problem Status W/U Status Risk Notes Problem Allergic rhinitis ca used by pollen (disorder) (12954389) Allergic rhinitis due to pollen (J30.1) Activeconfirmed Plan Of Treatment No Information Insurance Providers Payer Name Payer Address Payer Phone Subscriber Number Group Number Insured Name Patient Relationship to Insured Coverage Start Date Coverage End Date [employer] [address] [address] [place] [address] [id number] ZAKIA MEADE Self - patient is the insured Medications Administered Medication Instructions Date of Administration Dosage Notes Triamcinolone acetonide (Kenalog) 06/17/20142 mL
--- OUTSIDE RECORDS SUMMARY | 2025-05-16 10:18 | XMS_ITS | Encounter Summary ---
Author Organization [facility] Health Address [address] [place] [address] Care Team Providers Care Nutritionist Public Health Name Role Phone Unavailable Primary Care Provider Unavailabl e Prior Encounters DateTypeDepartmentCare GbvgEutouyhzpow14/25/2023 3:00 PM MSTOffice Visit [facility] [address] [place] [phone] Gregg Mcmahon, [facility] 06/12/2022 3:00 PM MSTOffice Visit [facility] [address] [place] [phone] Connie Hughes, [facility] 10/11/2021Telephone [facility] [address] [place] [phone] Georges Arthur, DDS 06/04/20214168Ogpgcs14/17/2022 8:00 AM MSTOffice Visit [facility] [address] [place] [phone] Kate Luis, [facility] 06/04/2021 8:15 AM MSTOffice Visit [facility] [address] [place] [phone] Vladimir Childers, DDS 09/11/20200754Btxxzc09/26/2021 8:00 AM MSTOffice Visit [facility] [address] [place] [phone] Alyse Ngo, DDS 09/11/2020 8:00 AM MSTOffice Visit [facility] [address] [place] [phone] Sabine Wilkins, RDH 04/03/20203245Svqpejyj79/16/2020Telephone [facility] [address] [facility] [place] [phone] Alyse Ngo, DDS 06/07/2019Converted CPS Chart Documents [facility] [address] [facility] [place] [address] <No scans attached>06/07/2019Converted 13x Documents [facility] [address] [facility] [place] [address] <No scans attached> Last Filed Vital Signs Vital SignReadingTime TakenCommentsBlood Qekdznjy783/90006/04/2021 7:59 AM MST Rchce883706/04/2021 7:59 AM MSTTemperature--Respiratory Rate--Oxygen Saturation-- Inhaled Oxygen Concentration--Weight--Height--Body Mass Index-- Plan of Treatment Not on file Procedures Procedure NamePriorityDate/TimeAssociated QvtuajytsCvxjgcpwRMPZmcadfw38/25/2023 3:00 PM MSTINTRAORAL KOZTOUmzvtoe19/25/2023 3:00 PM MSTSINGLE X-RAYRoutine 06/12/2022 3:00 PM MSTINTRAORAL IJSBFIvkxjyh19/25/2023 3:00 PM MSTBITEWINGS - FOUR RADIOGRAPHIC REOIMZCxefrew17/25/2023 3:00 PM MSTINTRAORAL PHOTORoutine 06/12/2022 3:00 PM MSTINTRAORAL CPBRLRbrmtvv97/25/2023 3:00 PM MSTADDITIONAL X-MEWEumokyi53/25/2023 3:00 PM MSTPERIODIC ORAL EVALUATION - ESTABLISHED PATIENT Xmhsrya5306/12/2022 3:00 PM MSTPANORAMIC RADIOGRAPHIC TCUTUNuycljm14/17/2022 8:15 AM MSTINTRAORAL GBWNEKctjjyh61/17/2022 8:15 AM MSTINTRAORAL PHOTORoutine 06/04/2021 8:15 AM MSTINTRAORAL BSOPVXrltejg21/17/2022 8:15 AM MSTINTRAORAL UGGOMXofmvuu24/17/2022 8:15 AM MSTBITEWINGS - FOUR RADIOGRAPHIC IMAGESRoutine 06/04/2021 8:15 AM MSTADDITIONAL X-ODVPllxxib68/17/2022 8:15 AM MSTSINGLE X-RAY Sstxpin6506/04/2021 8:15 AM MSTPERIODIC ORAL EVALUATION - ESTABLISHED PATIENT Sxntwhd9806/04/2021 8:15 AM MSTTOPICAL APPLICATION OF FLUORIDE VARNISHRoutine 06/04/2021 8:00 AM MSTUR KENNY DECON/KPSvhbyvs10/17/2022 8:00 AM MSTLR KENNY DECON/JNKtdzzkb53/17/2022 8:00 AM MSTLL KENNY DECON/ROWrulfmr05/17/2022 8:00 AM MSTUL KENNY DECON/QAMpmoyih76/17/2022 8:00 AM MSTUR ANTIBACT IRR/QUADRoutine 06/04/2021 8:00 AM MSTLR ANTIBACT IRR/KRSTGuokjzu20/17/2022 8:00 AM MSTLL ANTIBACT IRR/PQWYHyswqht34/17/2022 8:00 AM MSTUL ANTIBACT IRR/QUADRoutine 06/04/2021 8:00 AM MSTLR PERIODONTAL SCALING AND ROOT PLANING - FOUR OR MORE TEETH PER JBQJURNYFioikja62/17/2022 8:00 AM MSTUR PERIODONTAL SCALING AND ROOT PLANING - FOUR OR MORE TEETH PER GGEEHYQDCoxjhko55/17/2022 8:00 AM MSTLL PERIODONTAL SCALING AND ROOT PLANING - FOUR OR MORE TEETH PER QUADRANTRoutine 06/04/2021 8:00 AM MSTUL PERIODONTAL SCALING AND ROOT PLANING - FOUR OR MORE TEETH PER XCIJCPLQEehblbc84/17/2022 8:00 AM MST2 CORE BUILDUP, INCLUDING ANY PINS WHEN RRHGAFOZKiadngh72/26/2021 8:00 AM MSTUR ANTIBACT IRR/QUADRoutine 09/11/2020 8:00 AM MSTUL ANTIBACT IRR/JEMQOwcwmqs35/26/2021 8:00 AM MSTLR ANTIBACT IRR/HAUCFdikhkg85/26/2021 8:00 AM MSTLL ANTIBACT IRR/QUADRoutine 09/11/2020 8:00 AM MSTBAC VXRPDHtraeoy08/26/2021 8:00 AM MSTPERIO MAINTENANCE Tufzqoj0909/11/2020 8:00 AM MSTPERIODIC ORAL EVALUATION - ESTABLISHED PATIENT Nwrjzvz3409/11/2020 8:00 AM MSTBITEWINGS - FOUR RADIOGRAPHIC IMAGESRoutine 09/29/2019 12:00 AM MSTADDITIONAL X-MCYUvysabf36/13/2020 12:00 AM MSTSINGLE X-BDCQevfdtk50/13/2020 12:00 AM MSTINTRAORAL VYXXWEhhtupw01/13/2020 12:00 AM MST INTRAORAL WKFGKFmmdjdf99/13/2020 12:00 AM MSTINTRAORAL AHFUMBlacfwa32/13/2020 12:00 AM MSTINTRAORAL LDEDVZaakvdw59/13/2020 12:00 AM MSTPERIO MAINTENANCE Lppltsf3609/20/2019 12:00 AM MSTORAL HYGIENE GNDTJKICQVLSMctapbh84/04/2020 12:00 AM MST1 FM IRR W/PERIO URQUFZcocwdl41/04/2020 12:00 AM MSTTOPICAL APPLICATION OF FLUORIDE FIFCIKBTkcagmr86/04/2020 12:00 AM MSTPERIODIC ORAL EVALUATION - ESTABLISHED HDNGREIIgcjvwr03/04/2020 12:00 AM MSTPERIO MAINTENANCERoutine 07/07/2019 1:00 AM MSTORAL HYGIENE NRWXOBYYGPNUUlujlcd25/19/2020 1:00 AM MST1 KENNY NFXFDAytdpto53/19/2020 1:00 AM MST1 FM IRR W/PERIO KCXOAZywncal67/19/2020 1:00 AM MST14 CORE BUILDUP, INCLUDING ANY PINS WHEN BXEAOEAWGlxeczh61/13/2019 1:00 AM MST14 RECEMENT IFCCGUstoyby29/13/2019 1:00 AM MSTLR KENNY DECON/QDRoutine 03/31/2019 1:00 AM MSTLL KENNY DECON/UKAyjrtli41/13/2019 1:00 AM MSTUL KENNY DECON/LSFioonyz78/13/2019 1:00 AM MSTUR KENNY DECON/UIZpsvnne07/13/2019 1:00 AM MSTTOPICAL APPLICATION OF FLUORIDE CNIAKUCMmftiws19/13/2019 1:00 AM MSTNC X-RAY Fwrhtwj4803/31/2019 1:00 AM MST10 DFL COMPOSITE ZJRAHDZOssiyrz73/13/2019 1:00 AM MST7 DL COMPOSITE WLNQPXMGlbhili50/13/2019 1:00 AM MST8 L COMPOSITE FILLING Zgyltul8403/31/2019 1:00 AM MST14 ADJQQImwonsu52/13/2019 12:00 AM MST20 PONTIC - PFG - OVRBZjyuwtn73/06/2019 1:00 AM MST22 RETAINER CROWN - PFG - POSTRoutine 03/24/2019 1:00 AM MST19 RETAINER CROWN - PFG - NYLOQrekues52/06/2019 1:00 AM MST13 MOD AMALGAM 3 WJSHDNGUozoxoe57/06/2019 1:00 AM MST4 MOD AMALGAM 3 SURFACE Ndspgug9603/24/2019 1:00 AM MST15 MO AMALGAM 2 WLDQZWKGbeejxb2019 1:00 AM MST5 DO AMALGAM 2 MDQMQCJLkdqkbi64/06/2019 1:00 AM MST17 O AMALGAM 1 SURFACE Bcswmsz8703/24/2019 1:00 AM MST31 ENDODONTIC THERAPY, MOLAR TOOTH (EXCLUDING FINAL ANABAPTISM)Jqjkhey5503/24/2019 1:00 AM MST19 ENDODONTIC THERAPY, MOLAR TOOTH (EXCLUDING FINAL ANABAPTISM)Cggpxgu6103/24/2019 1:00 AM MST14 ENDODONTIC THERAPY, MOLAR TOOTH (EXCLUDING FINAL ANABAPTISM)Tyvxtxc1103/24/2019 1:00 AM MST12 ENDODONTIC THERAPY, MOLAR TOOTH (EXCLUDING FINAL ANABAPTISM)Rdumaed3103/24/2019 1:00 AM MST2 ENDODONTIC THERAPY, MOLAR TOOTH (EXCLUDING FINAL ANABAPTISM) Zmfvqzi2203/24/2019 1:00 AM MST31 CROWN PFM WFKMXntario24/06/2019 1:00 AM MST30 CROWN PFM COXLGymgfgt49/06/2019 1:00 AM MST29 CROWN PFM IXYSPccwmlp45/06/2019 1:00 AM MST18 CROWN PFM WMWFQoljsfd51/06/2019 1:00 AM MST12 CROWN PFM POST Qmmnjck9903/24/2019 1:00 AM MST3 CROWN PFM SDTJRruuobd47/06/2019 1:00 AM MST2 CROWN PFM RUEAAhexoor75/06/2019 1:00 AM MSTCOMPREHENSIVE ORAL EVALUATION - NEW OR ESTABLISHED BFKGMHYOngwgdb35/06/2019 1:00 AM MSTUR PERIODONTAL SCALING AND ROOT PLANING - FOUR OR MORE TEETH PER SHLCWICJPlikmeq61/06/2019 1:00 AM MSTUL PERIODONTAL SCALING AND ROOT PLANING - FOUR OR MORE TEETH PER QUADRANTRoutine 03/24/2019 1:00 AM MSTLR PERIODONTAL SCALING AND ROOT PLANING - FOUR OR MORE TEETH PER BPSUFBCGTpmdjzs00/06/2019 1:00 AM MSTLL PERIODONTAL SCALING AND ROOT PLANING - FOUR OR MORE TEETH PER BRDYXRGUCvxnchi89/06/2019 1:00 AM MSTORAL HYGIENE UXEJDHMMZYAOFmdrxqm46/06/2019 1:00 AM MSTUR ANTIBACT IRR/QUADRoutine 03/24/2019 1:00 AM MSTUL ANTIBACT IRR/QUOUUcrcghl69/06/2019 1:00 AM MSTLR ANTIBACT IRR/XQYIVbmveac55/06/2019 1:00 AM MSTLL ANTIBACT IRR/QUADRoutine 03/24/2019 1:00 AM MSTTOPICAL APPLICATION OF FLUORIDE DFRJYOVYnvucze73/06/2019 1:00 AM MSTLOCAL ANESTHESIA IN CONJUNCTION WITH OPERATIVE OR SURGICAL PROCEDURES Lawppbv5103/24/2019 1:00 AM MSTLOCAL ANESTHESIA IN CONJUNCTION WITH OPERATIVE OR SURGICAL WQCNAOFWLPYrnuxbp10/06/2019 1:00 AM MSTPANORAMIC RADIOGRAPHIC IMAGE Fjtadzt0503/24/2019 1:00 AM MSTINTRAORAL - COMPREHENSIVE SERIES OF RADIOGRAPHIC HCKBFSUtldptk33/06/2019 1:00 AM MSTINTRAORAL VOXSIOkdqnhk21/06/2019 1:00 AM MST INTRAORAL CDWXYRicwygz60/06/2019 1:00 AM MSTINTRAORAL AKDXYVnawizq52/06/2019 1:00 AM MSTINTRAORAL UDMHDNcizlvx98/06/2019 1:00 AM MST7 MIFL COMPOSITE FILLING Ndcrziu8203/24/2019 1:00 AM MST10 MFL COMPOSITE GKYAOPNZoedxui18/06/2019 1:00 AM MST9 MFL COMPOSITE UGHIOAJJysxqku64/06/2019 1:00 AM MST9 DFL COMPOSITE FILLING Bxfzxpp5403/24/2019 1:00 AM MST8 MFL COMPOSITE TPZSDRKKmzpfij85/06/2019 1:00 AM MST8 DFL COMPOSITE EVVMILKAugsvqv01/06/2019 1:00 AM [facility]14 CROWN PFM POSTRoutine 03/24/2019 12:00 AM [facility] Visit Diagnoses Not on file Insurance
--- OUTSIDE RECORDS SUMMARY | 2025-05-16 10:18 | XMS_ITS | Clinical Summary ---
Author Organization [facility] Address [address] [place] [address] Care Team Providers Care School Bus Aide Name Role Phone Elsewhere, Pcp Primary Care Provider Unavailabl e Source Comments Patient records contain information from all sites at [facility]. For routine questions regarding patient records, call [phone] during business hours, M-F 8:00 AM - 5:00 PM Central Time. Record requests for emergency care only can be directed to [phone] at any time.[facility] Allergies No known active allergies Medications * This document contains information received from the source organization and may not represent a complete record from that organization. MedicationSigDispense QuantityRefillsLast FilledStart DateEnd DateStatus atorvastatin (LIPITOR) 10 mg tablet Indications:Hyperlipidemia On TreatmentTake 1 tablet (10 mg total) by mouth at bedtime. 90 tablet 07/02/2021ctive carvediloL (COREG) 6.25 mg tablet Take 1 tablet by mouth 2 (two) times a day with meals.09/07/2021ctive cloNIDine (CATAPRES-TTS) 0.2 mg/[address] on the skin.03/07/2023ctive melatonin 3 mg tablet Take 3 mg by mouth.09/07/2021ctive rivaroxaban (XARELTO) 20 mg tablet Take 20 mg by mouth.2Active amLODIPine (NORVASC) 2.5 mg tablet Take 1 tablet by mouth daily.3Active ondansetron ODT (Zofran-ODT) 4 mg disintegrating tablet Dissolve 1 tablet (4 mg total) in the mouth every 8 (eight) hours as needed for nausea or vomiting. 50 tablet 5Active PAZOPanib (Votrient) 200 mg tablet Take 3 tablets (600 mg) by mouth daily. 90 tablet 5Active Active Problems ProblemNoted DateDiagnosed DateSecondary Malignant Neoplasm Soft Tissue 06/07/2024Leiomyosarcoma Non Chhbosi90/14/2023Primary Osteoarthritis Knee Left 06/01/2019Allergy Jhwbraqa11/08/2019Tinnitus Swxgtnhhn65/08/2019Pain Knee Jaoywbext13/08/2019Pityriasis Rosea09/23/2018Tubular Adenoma Colon Personal Mxrqtpg5209/23/2018Obesity Body Mass Index 30-39.9 Adult08/25/2018Elevated Blood Rqxlopcg10/09/2019Hyperlipidemia On Czeaqyvee61/01/2014 Overview (12/25/2017): Hyperlipidemia On Treatment Dysfunction ThyroidHyperlipidemiaHypertension NOSImpaired Fasting Glucose Encounters DateTypeDepartmentCare HfiiUogzfpftifl76/05/2025 12:00 PM [facility] Department of Oncology in [place], [place] [address] [place] [address] Boy Gorman M.D. Secondary Malignant Neoplasm Soft Tissue (HCC) (Primary Dx); Dysfunction Ynjniqz0504/22/2025 10:00 AM MSTOffice Visit Division of Hematology and Medical Oncology [address] [place] [address] Boy Gorman M.D. Leiomyosarcoma Non Uterine (HCC) (Primary Dx); Secondary Malignant Neoplasm Lung Left (HCC); Secondary Malignant Neoplasm Soft Tissue (HCC); Eplkhunfswbnnd91/05/2025linical Communication Division of Hematology and Medical Oncology [address] [place] [address] Owen Owens R.N. 04/21/2025 3:00 PM [facility] Department of Infusion Therapy in [place], [place] [address] [place] [address] Boy Gorman M.D. 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 Secondary Malignant Neoplasm Soft Tissue (HCC) (Primary Dx); Leiomyosarcoma Non Uterine (HCC); Secondary Malignant Neoplasm Lung Left (HCC); Usp Current Drug Therapy, Eczojzmvjgqj35/20/2025 4:15 PM MSTAncillary Procedure Department of Cardiovascular Medicine in [place], [place] [address] [place] [address] Boy Gorman M.D. Leiomyosarcoma Non Uterine (HCC); Secondary Malignant Neoplasm Lung Left (HCC); Secondary Malignant Neoplasm Soft Tissue (HCC); Usp Current Drug Therapy, Ipazjuggcerz39/20/2025 2:07 PM RUST - 03/07/2025 11:59 [facility] of [facility] in [place], [place] [address] [place] [address] Boy Gorman M.D. Leiomyosarcoma Non Uterine (HCC); Secondary Malignant Neoplasm Lung Left (HCC); Secondary Malignant Neoplasm Soft Tissue (HCC); Cradle Slide Maker Current Drug Therapy, Chemotherapy Discharge Disposition: Home or Self Care02/23/2025linical Communication Department of Oncology in [place], [place] [address] [place] [phone] Aleksandra Leavitt M.D. 02/22/2025[facility] Division of Hematology and Medical Oncology [address] [facility] [place] [address] Boy Gorman M.D. 02/21/2025linical Communication Division of Hematology and Medical Oncology [address] [facility] [place] [address] Boy Gorman M.D. from Last 3 Months Immunizations ImmunizationAdministration DatesNext DueHZV (ZOSTAVAX)03/15/2014HepA Adult 09/07/2010,06/22/2010,09/10/2002HepB Adult10/04/2013HepB, Dkdzgqglfvm31/06/2015, 09/20/2013,09/13/2013IPV09/10/2002Influenza, Quadrivalent, Adjuvanted, Preservative Free03/16/2021Influenza, Seasonal, Ogdohvikyp14/28/2014Influenza, Fsubmjucwwm24/27/2019,04/16/2017,03/15/20148314WFP4755/27/2019,08/30/2015PPSV23 06/18/2013,05/19/2012Rabies (Imovax)10/04/2013,09/20/2013,09/13/2013Rabies, Nfrxelzmwdd64/05/2014,09/13/2013Rabies, intramuscular, wtvzbyrbxt05/19/2014Td (Adult), /28/1994Td, (Adult) Aisamgraayj80/28/5412Atyc04/01/2013, 03/28/2008TyVi (inj)09/07/2010,09/10/2002Typhoid, Fvvpmxwmonk82/28/2014, 07/02/2010influenza trivalent high dose (HD)(PF)04/04/2020,04/14/2019,03/21/2018 ,04/16/2017,04/29/2016influenza trivalent vaccine (6 months and older)(PF) 09/07/2010influenza vaccine quad (FLUZONE/FLUARIX) (6 months and older)(PF) 03/21/2018 Family History Medical HistoryRelationNameCommentsHeart diseaseFather 2FatherHypertensionFather 2FatherHypertensionMother 1Clara taslerDied of heart conditionCoronary artery diseaseMother 2MotherHeart diseaseMother 2MotherRelationNameStatusCommentsFather 1Ernest TaslerFather 2FatherMother 1Clara taslerMother 2Mother Social History Tobacco UseTypesPacks/DayYears UsedDateSmoking Tobacco: FormerCigarettes0.8102.5 1969 - 11/16/1968Smokeless Tobacco: FormerSnuffQuit: 11/16/1997 Tobacco Cessation:Counseling Given: Not Answered Alcohol UseStandard Drinks/WeekCommentsNot Currently0 (1 standard drink = 0.6 oz pure alcohol)[facility] UtilitiesAnswerDate RecordedIn the past 12 months has the ServiceRelated, gas, oil, or water [employer] threatened to shut off services in your [...] live06/09/2024Sex and Gender InformationValueDate RecordedSex Assigned at ZfjjiFsvw84/06/2019 8:03 AM CDTLegal UokSbeg2206/20/2016 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 Gender EikhqhfnXnql39/06/2019 8:03 AM CDTSexual HmdkijhgywpDedkfpak17/06/2019 8:03 AM CDT Last Filed Vital Signs Vital SignReadingTime TakenCommentsBlood Fhymxuni391/9304/22/2025 9:38 AM MST Zjuvy0114 9:38 AM KRKFhqagjidokn99.4 ??C (97.5 ??F)04/22/2025 9:38 AM MSTRespiratory Ocdo893409/24/2024 10:20 AM MSTOxygen Pczcrxwuqp46%09/24/2024 10:20 AM MSTInhaled Oxygen Concentration--Cdeifz10.8 kg (167 lb)04/22/2025 9:38 AM MST Jcabhq945.2 cm (5' 7)09/24/2024 7:47 AM MSTBody Mass Index26.16009/24/2024 7:47 AM MST Plan of Treatment DateTypeDepartmentCare Team (Latest Contact Info)Uaatquuahru74/21/2026 1:45 PM MSTAppointment Department of Radiology, [facility], in [place], [place] [address] [place] [address] Boy Gorman M.D. [address] [place] [phone] Health MaintenanceDue DateLast DoneCommentsOffice Visit for Blood Pressure Check / Re-check1947IPV Vaccines (2 of 3 - Adult catch-up series)10/08/2002 09/10/2002Zoster Vaccines (1 of 2)Hepatitis B Vaccines (3 of 3 - 19+ 3-dose series), 10/04/2013, 09/20/2013, Additional history existsRSV vaccine - (32-36 weeks) or 50+ years (1 - 1-dose 75+ series)3Depression Screening (Annual PHQ-2)5COVID-19 Vaccine ( season)/, 04/17/2023, 03/01/2022, Additional history existsInfluenza Vaccine (#1)/, 03/01/2022, 03/16/2021, Additional history existsFasting Glucose for Diabetes Screening 6106/22/2024, 03/09/2025, 09/24/2024, Additional history exists DTaP,Tdap,and Td Vaccines (4 - Td or Tdap), 05/19/2012, 03/28/2008, Additional history existsHepatitis A VttyaxhsZblppxmmz45/22/2011, 06/22/2010, 09/10/2002Hepatitis C RjvcmrplnVmebddgni78/28/2014Colonoscopy Ikbgqhdmlzpf29/28/2019, 04/07/2014, 09/20/2010, Additional history exists Colorectal Cancer ScreeningDiscontinuedColorectal Cancer Surveillance DiscontinuedPneumococcal vaccine (50+ years)Gxoppwxtd11/27/2019, 08/30/2015, 07/02/2013, Additional history existsAbdominal Aortic Aneurysm (AAA) Screen Vhrspdgjtynk85/06/2024, 07/24/2023Fall Risk Screen (Annual)Onihaifvx80/04/2025T ColonographyDiscontinuedCT ColonographyDiscontinuedCologuardDiscontinuedFIT DiscontinuedHPV VaccinesAged OutNo longer eligible based on patient's age to complete this topic Procedures Procedure NamePriorityDate/TimeAssociated DiagnosisCommentsT4 (THYROXINE), FREE, NPnwzohb49/05/2025 11:28 AM MST Dysfunction Thyroid NUCLEATED TDDUgbqrnn19/04/2025 3:01 PM MST THYROID-STIMULATING HORMONE-SENSITIVE (S-TSH)Vliaygl2204/21/2025 3:01 PM MST 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) COMPREHENSIVE METABOLIC PANEL, S/UQhykiri83/04/2025 3:01 PM MST 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) CBC WITH DIFFERENTIAL, REpmvftg61/04/2025 3:01 PM MST 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) URINALYSIS WITH ZRWCHPLSRRMSuhhwuk62/22/2025 9:39 AM MST 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) Usp Current Drug Therapy, Chemotherapy PROTEIN/CREATININE RATIO, RANDOM, WPSZCChzyjfo71/22/2025 9:39 AM MST 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) CA T4 GLPRNsjkcpm82/22/2025 9:38 AM MST THYROPEROXIDASE (TPO) ABS, BIjusjao46/22/2025 9:38 AM MST NUCLEATED MQSBmyzdfr80/22/2025 9:38 AM MST THYROID FUNCTION CASCADE, QVchmkbp00/22/2025 9:38 AM MST 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) Usp Current Drug Therapy, Chemotherapy BILIRUBIN DIRECT, S/AZkdwjan35/22/2025 9:38 AM MST 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) Usp Current Drug Therapy, Chemotherapy COMPREHENSIVE METABOLIC PANEL, S/USpsniuf20/22/2025 9:38 AM MST 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) CBC WITH DIFFERENTIAL, JQefyqtp66/22/2025 9:38 AM MST 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) VGPFgvmzbc85/20/2025 3:53 PM MST 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) Usp Current Drug Therapy, Chemotherapy (TTE) 2D ECHO DOPPLER NDCCCJzwvbvo75/20/2025 3:52 PM MST 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) Cradle Slide Maker Current Drug Therapy, Chemotherapy CT ABDOMEN PELVIS WITH IV CONTRASTRAD - Routine (most inpatients and all outpatients)10/23/2023 9:00 AM CDT Leiomyosarcoma Non Uterine (HCC) Nodules Pulmonary Multiple ELCKJSFOUMEYxhaiqy06/28/2019 9:10 AM RUST Tubular Adenoma Colon Personal History HCV AB SCREEN, FHwfzlnm01/28/2014 9:34 AM MST from Last 3 Months or Most Recently Relevant to Health Maintenance Results * T4 (Thyroxine), Free (04/22/2025 11:28 AM MST)ComponentValueRef RangeTest MethodAnalysis TimePerformed AtPathologist SignatureT4 (Thyroxine), Free, S1.6 0.9 - 1.7 ng/dL04/22/2025 1:13 PM MSTAZPBSpecimen (Source)Anatomical Location / LateralityCollection Method / VolumeCollection TimeReceived TimeBlood (Blood, Venous)04/22/2025 11:28 AM RUST04/22/2025 11:52 AM RUST Narrative Authorizing ProviderResult TypeResult StatusMahesnicholas Gorman M.D.LAB BLOOD ADD-ONFinal ResultPerforming OrganizationAddressCity/State/ZIP CodePhone Number [facility] [address] [address] [address] [place] [address] * Nucleated RBC (04/21/2025 3:01 PM MST) Only the most recent of2 resultswithin the time period is included. ComponentValueRef RangeTest MethodAnalysis TimePerformed AtPathologist Signature Nucleated RBC0.0/100 WBC04/21/2025 3:37 PM MSTAZMCSpecimen (Source)Anatomical Location / LateralityCollection Method / VolumeCollection TimeReceived TimeBlood 04/21/2025 3:01 PM MST04/21/2025 3:13 PM MST Narrative Authorizing ProviderResult TypeResult StatusMahesnicholas Gorman M.D.LAB BLOOD NON ADD-ONFinal ResultPerforming OrganizationAddressCity/State/ZIP CodePhone Number [facility] [address] [place] [address], [facility] [phone] [facility] [address] [place] [address] * (ABNORMAL) CBC with Differential, Blood (04/21/2025 3:01 PM MST) Only the most recent of2 resultswithin the time period is included. ComponentValueRef RangeTest MethodAnalysis TimePerformed AtPathologist Signature Boxaraxshl80.013.2 - 16.6 g/dL04/21/2025 3:37 PM UCDWXLCZgjsqhjcvz49.238.3 - 48.6 %04/21/2025 3:37 PM MSTAZMCErythrocytes4.00(L)4.35 - 5.65 x10(12)/L 04/21/2025 3:37 PM UGJASKMAVX394.0(H)78.2 - 97.9 fL04/21/2025 3:37 PM MSTAZMCRBC Distrib Width15.7(H)11.8 - 14.5 %04/21/2025 3:37 PM MSTAZMCPlatelet Wfksb672644 - 317 x10(9)/L106/22/2024 3:37 PM MSTAZMCLeukocytes6.23.4 - 9.6 x10(9)/L 04/21/2025 3:37 PM MSTAZMCNeutrophils3.291.56 - 6.45 x10(9)/L106/22/2024 3:37 PM MSTAZMHLymphocytes2.300.95 - 3.07 x10(9)/L106/22/2024 3:37 PM MSTAZMCMonocytes 0.420.26 - 0.81 x10(9)/L106/22/2024 3:37 PM MSTAZMCEosinophils0.140.03 - 0.48 x10(9)/L106/22/2024 3:37 PM MSTAZMCBasophils0.030.01 - 0.08 x10(9)/L106/22/2024 3:37 PM MSTAZMCSpecimen (Source)Anatomical Location / LateralityCollection Method / VolumeCollection TimeReceived TimeBlood (Blood, Venous)04/21/2025 3:01 PM MST04/21/2025 3:13 PM MST Narrative Authorizing ProviderResult TypeResult StatusMaoksana Gorman M.D.LAB BLOOD ADD-ONFinal ResultPerforming OrganizationAddressCity/State/ZIP CodePhone Number [facility] [address] [place] [address], [facility] [phone] [facility] [address] [place], [place] [address] [place] [address] [place] [address] * (ABNORMAL) S-TSH (Thyroid-Stimulating Hormone - Sensitive) (04/21/2025 3:01 PM MST)ComponentValueRef RangeTest MethodAnalysis TimePerformed AtPathologist SignatureTSH, Sensitive5.6(H)0.3 - 4.2 mIU/L106/22/2024 5:14 PM MSTAZMCSpecimen (Source)Anatomical Location / LateralityCollection Method / VolumeCollection TimeReceived TimeBlood (Blood, Venous)04/21/2025 3:01 PM MST04/21/2025 3:13 PM MST Narrative Authorizing ProviderResult TypeResult StatusBoy Gorman M.D.LAB BLOOD ADD-ONFinal ResultPerforming OrganizationAddressCity/State/ZIP CodePhone Number [facility] [address] [place] [address], [facility] [phone] [facility] [address] [place] [address] * (ABNORMAL) Comprehensive Metabolic Panel (04/21/2025 3:01 PM MST) Only the most recent of2 resultswithin the time period is included. ComponentValueRef RangeTest MethodAnalysis TimePerformed AtPathologist Signature Potassium, S4.73.6 - 5.2 mmol/L106/22/2024 5:14 PM MSTAZMCSodium, X081564 - 145 mmol/L106/22/2024 5:14 PM MSTAZMCChloride, H98603 - 107 mmol/L106/22/2024 5:14 PM MSTAZMCBicarbonate, S2322 - 29 mmol/L106/22/2024 5:36 PM MSTAZMCAnion Ngs977 - 15 04/21/2025 5:36 PM MSTAZMCBUN (Blood Urea Nitrogen), S11.38.0 - 24.0 mg/dL 04/21/2025 5:14 PM MSTAZMCCreatinine1.010.74 - 1.35 mg/dL04/21/2025 5:32 PM MST AZMCEstimated GFR (eGFR)77>=60 mL/min/BSA04/21/2025 5:32 PM MSTAZMCComment: Estimated GFR calculated using the 2020 CKD_EPI creatinine equation. Calcium, Total, S9.78.8 - 10.2 mg/dL04/21/2025 5:43 PM MSTAZMCGlucose, K23581 - 140 mg/dL04/21/2025 5:32 PM MSTAZMCProtein, Total, S5.9(L)6.3 - 7.9 g/dL 04/21/2025 5:14 PM MSTAZMCAlbumin, S4.23.5 - 5.0 g/dL04/21/2025 5:32 PM MSTAZMC Aspartate Aminotransferase (AST), S258 - 48 U/L106/22/2024 5:32 PM MSTAZMC Alkaline Phosphatase, S6640 - 129 U/L106/22/2024 5:32 PM MSTAZMCAlanine Aminotransferase (ALT), S277 - 55 U/L106/22/2024 5:32 PM RUSTAZMCBilirubin, Total, S1.00.0 - 1.2 mg/dL04/21/2025 5:32 PM MSTAZMCSpecimen (Source)Anatomical Location / LateralityCollection Method / VolumeCollection TimeReceived TimeBlood (Blood, Venous)04/21/2025 3:01 PM RUST04/21/2025 3:13 PM RUST Narrative Authorizing ProviderResult TypeResult Kiana Gorman M.D.LAB BLOOD ADD-ONFinal ResultPerforming OrganizationAddressty/State/ZIP CodePhone Number [facility] [address] [place] [address], [facility] [phone] [facility] [address] [place] [address] * Protein/Creatinine Ratio, Random, Urine (03/09/2025 9:39 AM RUST)ComponentValue Ref RangeTest MethodAnalysis TimePerformed AtPathologist SignatureProtein, Total, Random, U14mg/dL03/09/2025 10:28 AM MSTAZMCCreatinine, Random, M21899 - 326 mg/dL03/09/2025 10:28 AM [facility]/Creatinine Ratio0.12<0.18 mg/mg 03/09/2025 10:28 AM MSTAZMCSpecimen (Source)Anatomical Location / Laterality Collection Method / VolumeCollection TimeReceived TimeUrine (Urine, Midstream) 03/09/2025 9:39 AM RUST03/09/2025 9:44 AM RUST Narrative Authorizing ProviderResult TypeResult Ron Leavitt M.D.LAB URINE ORDERABLESFinal ResultPerforming OrganizationAddressCity/State/ZIP CodePhone Number [facility] [address] [place] [address], [place] [phone] [facility] [address] [place] [address] * Urinalysis, with Microscopic: Urine, Midstream (03/09/2025 9:39 AM RUST) ComponentValueRef RangeTest MethodAnalysis TimePerformed AtPathologist ZwnaglkhkRqzsllvLikph92/ 10:52 AM YWNNONXEkhvdTksivu63/22/2025 10:52 AM MSTAZMCpH, U5.54.5 - 8.010 10:52 AM MSTAZMCSpecific Gravity1.0151.002 - 1.2123403/09/2025 10:52 AM MSTAZGlucoseNEGNEG mg/dL03/09/2025 10:52 AM MST AZProtein, UNEGNEG mg/dL03/09/2025 10:52 AM GIYZORFPfhsantexXIUXME25/22/2025 10:52 AM RUSTAZUrobilinogen<0.2NORMAL mg/dL03/09/2025 10:52 AM [facility] Hemoglobin, YQJESLKH26/22/2025 10:52 AM RUSTAZKetonesNEGNEG mg/dL03/09/2025 10:52 AM [facility]ITALLeukocyte GbfzjmssLCJCSQ59/22/2025 10:52 AM RUSTAZNitrite, U FMBSOM2103/09/2025 10:52 AM [facility]ITALWhite Blood Cells<10 - 3 /hpf03/09/2025 10:52 AM MSTAZMCSpecimen (Source)Anatomical Location / LateralityCollection Method / VolumeCollection TimeReceived TimeUrine (Urine, Midstream)03/09/2025 9:39 AM MST03/09/2025 9:44 AM RUST Narrative Authorizing ProviderResult TypeResult StatusMahesnicholas Gorman M.D.LAB URINE ORDERABLESFinal ResultPerforming OrganizationAddressCity/State/ZIP CodePhone Number [facility] [address] [place] [address], [facility] [phone] [facility] [address] [place] [address] * T4 (Thyroxine), Free, Serum (03/09/2025 9:38 AM MST)ComponentValueRef Range Test MethodAnalysis TimePerformed AtPathologist SignatureT4 (Thyroxine), Free, S1.50.9 - 1.7 ng/dL03/09/2025 1:02 PM MSTAZMCSpecimen (Source)Anatomical Location / LateralityCollection Method / VolumeCollection TimeReceived Time Blood03/09/2025 9:38 AM RUST03/09/2025 9:46 AM RUST Narrative Authorizing ProviderResult TypeResult Kiana Gorman M.D.LAB BLOOD ADD-ONFinal ResultPerforming OrganizationAddressCity/State/ZIP CodePhone Number [facility] [address] [place] [address], [facility] [phone] [place] [address] * (ABNORMAL) Thyroid Function Foster (03/09/2025 9:38 AM RUST)ComponentValueRef RangeTest MethodAnalysis TimePerformed AtPathologist SignatureTSH, Sensitive 4.31(H)0.30 - 4.20 mIU/L1 12:33 PM MSTAZMCSpecimen (Source)Anatomical Location / LateralityCollection Method / VolumeCollection TimeReceived Time Blood (Blood, Venous)03/09/2025 9:38 AM RUST03/09/2025 9:46 AM RUST Narrative Authorizing ProviderResult TypeResult Kiana Gorman M.D.LAB BLOOD ADD-ONFinal ResultPerforming OrganizationAddressCity/State/ZIP CodePhone Number [facility] [address] [place] [address], [facility] [phone] [place] [address] * Thyroperoxidase (TPO) Antibodies (03/09/2025 9:38 AM RUST)ComponentValueRef RangeTest MethodAnalysis TimePerformed AtPathologist SignatureThyroperoxidase Ab, S<9.0<34.0 IU/mL03/09/2025 1:02 PM MSTAZMCSpecimen (Source)Anatomical Location / LateralityCollection Method / VolumeCollection TimeReceived Time Blood03/09/2025 9:38 AM RUST03/09/2025 9:46 AM RUST Narrative Authorizing ProviderResult TypeResult Kiana Gorman M.D.LAB BLOOD ADD-ONFinal ResultPerforming OrganizationAddressCity/State/ZIP CodePhone Number [facility] [address] [place], [place] [phone] [place] [address] [place] [address] * Bilirubin, Direct (03/09/2025 9:38 AM RUST)ComponentValueRef RangeTest Method Analysis TimePerformed AtPathologist SignatureBilirubin, Direct, S0.30.0 - 0.3 mg/dL03/09/2025 12:33 PM RUSTAZMCSpecimen (Source)Anatomical Location / LateralityCollection Method / VolumeCollection TimeReceived TimeBlood (Blood, Venous)03/09/2025 9:38 AM RUST03/09/2025 9:46 AM RUST Narrative Authorizing ProviderResult TypeResult StatusMaoksana Gorman M.D.LAB BLOOD ADD-ONFinal ResultPerforming OrganizationAddressCity/State/ZIP CodePhone Number [facility] [address] [place], [place] [phone] [place] [address] [place] [address] * ECG 12 Lead (03/07/2025 3:53 PM RUST)ComponentValueRef RangeTest MethodAnalysis TimePerformed AtPathologist SignatureVentricular Rate ECG/Sty77AYVMEVFEB Mkojgihy364xlUGTXUCMF Wqgjfwqz736ooOJBKHK Eebyoznm907hvGEUCALY Pxuwdith336fi MUSEP Xjva41tnaopkdTKDQV [place]-47degreesMUSET Wave Hhuy87efdlwhmNPODHaurlboo (Source)Anatomical Location / LateralityCollection Method / VolumeCollection TimeReceived Time03/07/2025 3:53 PM MST03/08/2025 11:04 AM RUST Impressions MUSE - 03/08/2025 11:04 AM RUST Normal sinus rhythm Right bundle branch block [...] T waves in Inferiorleads Authorizing ProviderResult TypeResult StatusMahes Vita BaiECG ORDERABLES Final ResultPerforming OrganizationAddressCity/State/ZIP CodePhone Number MUSE NA * (TTE) 2D ECHO DOPPLER COLOR (03/07/2025 3:52 PM RUST)ComponentValueRef Range Test MethodAnalysis TimePerformed AtPathologist SignatureEjection Dchjcaca90IF CV EIMSMid-Ascending Fyzez24AQ CV EIMSLV Mass Qnwnd69GU CV EIMSLV End- Diastolic Hdmuuznk33WG CV EIMSLV End-Systolic Vvywxkfw08DX CV EIMSLV End- Diastolic Trwxqv92VU CV EIMSLV End-Systolic Adbrmx28DH CV EIMSMV E Velocity0.3 MC CV EIMSMV A Velocity0.7MC CV EIMSMV E/A0.43MC CV EIMSMV e' Velocity Medial 0.04MC CV EIMSMV e' Velocity Lateral0.07MC CV EIMSMV E/e' Medial7.5MC CV EIMS MV E/e' Lateral4.3MC CV EIMSLeft ventricular stroke volume kghip34NN CV EIMS Cardiac Output5.24MC CV EIMSCardiac Index2.8MC CV EIMSLV Global Longitudinal Strain-17MC CV EIMSLV Interventricular Septal Wall Slcxgyqxn80JE CV EIMSLV Posterior Wall Mbbnlurml0ZG CV EIMSLV Relative Wall Icrjbecho49QO CV EIMSTAPSE 13MC CV EIMSTricuspid Annular S???0.09MC CV EIMSTR Vmax2.8MC CV EIMSEstimated RA Pressure (Echo RAP)5MC CV EIMSRV Systolic Pressure (with Echo RAP)36MC CV EIMSTR Vmax/RVOT TVI0.3MC CV EIMSAV mean zzqhezfl9CF CV EIMSAortic valve area 3.46MC CV EIMSAortic Valve Dimensionless Index0.83MC CV EIMSLA Volume Index29 MC CV EIMSAortic Valve Systolic Peak Velocity1.2MC CV EIMSAnatomical Region LateralityModalityOtherSpecimen (Source)Anatomical Location / Laterality Collection Method / VolumeCollection TimeReceived Time03/07/2025 2:31 PM [facility] Impressions 03/07/2025 4:34 PM RUST Echocardiographic images interpreted at [facility]. Color flow and spectral Doppler performed in part to assess valvular heart disease. There are no previous [facility] echocardiograms available for comparison. LEFT VENTRICLE:Normal left [...] the Order-Level Documents. Narrative 03/07/2025 4:34 PM RUST For the complete report, see the Order-Level [...] ??pericardial effusion. 7. There are no previous [facility] echocardiograms available for comparison. Procedure Note Anusha [...] pericardial effusion. 7. There are no previous [facility] echocardiograms available forcomparison. Findings Echocardiographic images interpreted at [facility].Color flow and spectral Doppler performed in part to assess valvular heartdisease. There are no previous [facility] echocardiograms available forcomparison. LEFT VENTRICLE:Normal left ventricular chamber size. Calculated 3-Dvolumetric left ventricular ejection fraction 61%. Strain imagingexamination performed to assess left ventricular function. Global averagedleft ventricular longitudinal peak systolic strain is borderline at -17%(normal = more negative than -18%). Normal left ventricular fillingpressure. No regional wall motion abnormalities. RIGHT VENTRICLE:Normal right ventricular chamber size. Borderline reducedright ventricular systolic function. Right ventricular systolic cxsakkko39 mmHg (right atrial pressure of 5 mmHg). [...] see the Order-Level Documents. Authorizing ProviderResult TypeResult StatusMahesh Vita BaiCV ECHO PROCEDURESFinal Result * CT Abdomen Pelvis with IV Contrast (10/23/2023 9:00 AM CDT)Anatomical Region LateralityModalityAbdomen, Pelvis, Abdominal RST LOS, Abdominal ARZ LOS, Abdominal FLA LOSN/AComputed Tomography, Computed TomographySpecimen (Source) Anatomical Location / LateralityCollection Method / VolumeCollection Time Received Time10/23/2023 8:55 AM CDT Impressions 10/23/2023 10:25 AM CDT [address] evidence of recurrent or metastatic disease in the abdomen or pelvis. 2. ??Unchanged ??presumed 1.2 cm IPMN in the tail the pancreas. Narrative 10/23/2023 10:25 AM CDT EXAM: CT ABDOMEN PELVIS WITH IV CONTRAST COMPARISON: ??CT abdomen pelvis 07/24/2023 and priors FINDINGS: ?? Surgical changes of right nephrectomy and IVC reconstruction. No abnormal enhancing soft tissue within the resection bed to indicate local recurrence. No abdominal or pelvic lymphadenopathy. No suspicious liver lesion. Tiny hepatic cysts. Portal and hepatic veins are patent. Gallbladder isabsent. No biliary dilatation. Unchanged mild dilation of the pancreatic duct and 1.2 cm cystic lesion in the pancreas tail. Spleen and adrenals are unremarkable. Renal cysts. Mild diffuse bladder wall thickening. Colonic diverticulosis. Vascular calcifications. Unchanged focal narrowing at the superior aspect of the IVC graft. ??Patency is not well assessed due to phase of contrast. This examination was performed in conjunction with a CT of the chest, which will be reported separately. Procedure Note Richy Elam M.D. - 10/23/2023 EXAM: CT ABDOMEN PELVIS WITH IV CONTRAST COMPARISON: CT abdomen pelvis 07/24/2023 and priors FINDINGS: Surgical changes of right nephrectomy and IVC reconstruction. No abnormal enhancing soft tissue within the resection bed to indicate localrecurrence. No abdominal or pelvic lymphadenopathy. No suspicious liver lesion. Tiny hepatic cysts. Portal and hepatic veinsare patent. Gallbladder is absent. No biliary dilatation. Unchanged milddilation of the pancreatic duct and 1.2 cm cystic lesion in the pancreastail. Spleen and adrenals are unremarkable. Renal cysts. Mild diffuse bladder wall thickening. Colonic diverticulosis. Vascular calcifications. Unchanged focal narrowing at the superior aspect of the IVC graft.Patency is not well assessed due to phase of contrast. This examination was performed in conjunction with a CT of the chest,which will be reported separately. IMPRESSION: 1. No CT evidence of recurrent or metastatic disease in the abdomen orpelvis. 2. Unchanged presumed 1.2 cm IPMN in the tail the pancreas. Authorizing ProviderResult TypeResult StatusJepedro Mcdermott M.D.[facility] [place] PROCEDURESFinal Result * Colonoscopy (03/15/2019 9:10 AM RUST)Anatomical RegionLateralityModality EndoscopySpecimen (Source)Anatomical Location / LateralityCollection Method / VolumeCollection TimeReceived Time03/15/2019 9:10 AM RUST Impressions 03/15/2019 10:00 AM RUST Post-op Diagnoses: ? - Hemorrhoids found on perianal exam. ? - One 2 mm polyp in the rectum, removed with a cold biopsy forceps. ? Resected and retrieved. ? - Diverticulosis in the sigmoid colon. ? - The examined portion of the ileum was normal. ? - The rectum is normal. ? - The examination was otherwise normal. Narrative 03/15/2019 10:00 AM [facility] GI Patient Name: Ryan Mccain Date of : 1945 Age: 73 Gender: Male Procedure Date: 03/15/2019 Procedure: ? Colonoscopy Providers: ? Darcy King MD, Jose Luis Colorado (Ordering ? Provider) Referring Provider: ?Jose Luis Colorado Pre-op Diagnoses: ?Surveillance: Personal history of adenomatous polyps ? on last colonoscopy 5 years ago Recommendation: ? - Await pathology results. ? - Repeat colonoscopy in 5 years for surveillance. ? - Discharge patient to home (ambulatory). ? - Advance diet as tolerated today. ? - Patient has a contact number available for emergencies. The signs and ? symptoms of potential delayed complications were discussed with the ? patient. Return to normal activities tomorrow. Written discharge ? instructions were provided to the patient. Findings: ? Hemorrhoids were found on perianal exam. ? A 2 mm polyp was found in the rectum. The polyp was sessile. The polyp ? was removed with a cold biopsy forceps. Resection and retrieval were ? complete. Verification of patient identification for the specimen was ? done by the physician, nurse and pilot plant research technician. ? The exam was otherwise without abnormality. ? The terminal ileum appeared normal. ? The rectum (on retroflexion) appeared normal. ? A few small-mouthed diverticula were found in the sigmoid colon. Procedural Details: ? The patient was seen, evaluated, and history reviewed. Airway and heart ? and lung exams were performed and were satisfactory for planned sedation ? care. ? The risks, benefits and alternatives for the procedure and sedation were ? discussed and informed consent was obtained. A procedural pause was ? conducted in the presence of assisting personnel to verify the correct ? patient identity and procedure to be performed. Throughout the ? procedure, the patient's blood pressure, pulse, and oxygen saturations ? were monitored continuously. The Colonoscope was introduced under direct ? vision through the anus and advanced to the terminal ileum, with ? identification of the appendiceal orifice and IC valve. The colonoscopy ? was performed with ease. The patient tolerated the procedure well. The ? quality of the bowel preparation was evaluated using the BBPS ([place] ? Bowel Preparation Scale) with scores of: Right Colon = 3, Transverse ? Colon = 3 and Left Colon = 3 (entire mucosa seen well with no residual ? staining, small fragments of stool or opaque liquid). The total BBPS ? score equals 9. Complications: ? No immediate complications. Estimated blood loss: ? None. Sedation: ? Moderate (conscious) sedation was administered by the endoscopy nurse ? and supervised by the endoscopist. The following parameters were ? monitored: oxygen saturation, heart rate, blood pressure, and response ? to care. Total physician intraservice time was 25 minutes. Attending Participation: I personally performed the entire procedure. Darcy King MD 03/15/2019 10:00:30 AM Number of Addenda: 0 Note Initiated On: 03/15/2019 9:10 AM Authorizing ProviderResult TypeResult StatusJose Luis Colorado P.A.-C.GI PROCEDURE ORDERABLESFinal Result * HCV Ab Screen, Serum (03/15/2014 9:34 AM [facility])ComponentValueRef RangeTest MethodAnalysis TimePerformed AtPathologist SignatureHCV Ab Screen, SNegativeHX [place] CONVERSIONSpecimen (Source)Anatomical Location / Laterality Collection Method / VolumeCollection TimeReceived Time03/15/2014 9:34 AM RUST 03/15/2014 9:34 AM [facility]UST Narrative Authorizing ProviderResult TypeResult StatusDaorlando Gregorio M.D.LAB MICROBIOLOGY - BLOOD ORDERABLESFinal ResultPerforming OrganizationAddressCity/State/ZIP Code Phone Number HX [place] CONVERSION from Last 3 Months or Most Recently Relevant to Health Maintenance Additional Health Concerns InfectionOnset DateLast IndicatedProtective Pqblhcpthig21/10/52472606/28/2024 Insurance Care Teams Team MemberRelationshipSpecialtyStart DateEnd Date Elsewhere, Pcp PCP - GeneralInternal Medicine09/24/24
--- OUTSIDE RECORDS SUMMARY | 2025-05-16 10:19 | XMS_ITS | Encounter Summary ---
Author Organization [facility] Address [address] [place] [address] Care Team Providers Care Manager Financial Services Name Role Phone Elsewhere, Pcp Primary Care Provider Unavailabl e Encounter Details DateTypeDepartmentCare Team (Latest Contact Info)Lhixbchopez86/05/2025Clinical Communication Division of Hematology and Medical Oncology [address] [place] [address] Owne Owens RGalina Social History Tobacco UseTypesPacks/DayYears UsedDateSmoking Tobacco: FormerCigarettes0.8102.5 1969 - 11/16/1968Smokeless Tobacco: FormerSnuffQuit: 11/16/1997Alcohol Use Standard Drinks/WeekCommentsNot Currently0 (1 standard drink = 0.6 oz pure alcohol)[facility] UtilitiesAnswerDate RecordedIn the past 12 months has [...] live06/09/2024Sex and Gender InformationValueDate RecordedSex Assigned at RwparOfgh71/06/2019 8:03 AM CDTLegal QaiKqko6706/20/2016 5:55 AM AZURE PRINCIPAL SOLUTION SPECIALIST Gender VnrcleajWval81/06/2019 8:03 AM CDTSexual AkqxortxtnkDaoaxrul54/06/2019 8:03 AM CDTdocumented as of this encounter Plan of Treatment DateTypeDepartmentCare Team (Latest Contact Info)Rumxfuikmye29/21/2026 1:45 PM MSTAppointment Department of Radiology, [facility], in [place] [address] [place] [id number] Boy Gorman M.D. [address] [place] [address] documented as of this encounter Results * T4 (Thyroxine), Free (04/22/2025 11:28 AM [facility])ComponentValueRef RangeTest MethodAnalysis TimePerformed AtPathologist SignatureT4 (Thyroxine), Free, S1.6 0.9 - 1.7 ng/dL04/22/2025 1:13 PM MSTAZPBSpecimen (Source)Anatomical Location / LateralityCollection Method / VolumeCollection TimeReceived TimeBlood (Blood, Venous)04/22/2025 11:28 AM MST04/22/2025 11:52 AM [facility] Narrative Authorizing ProviderResult TypeResult StatusMahesnicholas Gorman M.D.LAB BLOOD ADD-ONFinal ResultPerforming OrganizationAddressCity/State/ZIP CodePhone Number [facility] [place] [place] [address] [address], [facility] [address] [place] [address] documented in this encounter Visit Diagnoses Diagnosis Dysfunction Thyroid- Primary documented in this encounter Additional Health Concerns InfectionOnset DateLast IndicatedResolved TimeProtective Oakweflfupu64/10/2025 06/28/2024documented as of this encounter Care Teams Team MemberRelationshipSpecialtyStart DateEnd Date Elsewhere, Pcp PCP - GeneralInternal Medicine09/24/24documented as of this encounter
--- OUTSIDE RECORDS SUMMARY | 2025-05-16 10:19 | XMS_ITS ---
Author Organization [facility] Address [address] [place] [address] Care Team Providers Care Scratcher Name Role Phone Elsewhere, Pcp Primary Care Provider Unavailabl e Active Problems * This document contains information received from the source organization and may not represent a complete record from that organization. ProblemNoted DateDiagnosed DateSecondary Malignant Neoplasm Soft Tissue 06/07/2024Leiomyosarcoma Non Bskxhcn27/14/2023Primary Osteoarthritis Knee Left 06/01/2019Allergy Gwnxxxjq88/08/2019Tinnitus Nqufiedcv56/08/2019Pain Knee Cisbrvavl76/08/2019Pityriasis Rosea09/23/2018Tubular Adenoma Colon Personal Zfqqmim6609/23/2018Obesity Body Mass Index 30-39.9 Adult08/25/2018Elevated Blood Aypjpiqy22/09/2019Hyperlipidemia On Bjghaquey83/01/2014 Overview (12/25/2017): Hyperlipidemia On Treatment Dysfunction ThyroidHyperlipidemiaHypertension NOSImpaired Fasting Glucose Current Treatment and Therapy Plans Vascular Access Patency - Implanted Vascular Access Device (IVAD) Venous Non-Valved* Plan Start Date:06/07/2024 Plan Provider:Isabella Sanford M.D. Linked Problems Secondary Malignant Neoplasm Soft Tissue (HCC) Treatment Medications No medications scheduled. Past Treatment and Therapy Plans No past plan information found.
--- NOTE | 2025-05-16 10:58 | CRLHL7_ITS ---
For Patients: As a result of the Century Cures Act, medical imaging exams and procedure reports are released immediately into your electronic medical record. You may view this report before your referring provider. If you have questions, please contact your health care provider. Indication: LLQ pain, constipation, S/P cancer, R kidney removed Technique: CT abdomen/pelvis with IV contrast Comparison: CT abdomen/pelvis on July 24, 2023 Findings: Lower thorax: There are a few sub 6 millimeter, subpleural pulmonary nodules bilaterally, likely benign. Abdomen/pelvis: No suspicious hepatic lesions. Stable subcentimeter hypoattenuating hepatic lesions likely tiny benign cysts. Likely mild diffuse hepatic steatosis. The gallbladder and biliary system are unremarkable. The spleen is unremarkable. Stable 1.1 centimeter cyst in the pancreatic tail, likely a side branch IPMN. New ill-defined hypoattenuating lesion in the proximal pancreatic body/pancreatic head measuring approximately 1.2 centimeters AP x 1.9 centimeters transverse x 1.5 centimeters craniocaudal (series number 2, image 50; series number 4, image 38). No significant biliary ductal dilatation. Questionable subcentimeter low-density right adrenal nodule (series number 2, image 51). No left adrenal nodules. Status post right nephrectomy. The left kidney is normal in size and perfuses in a normal fashion. No suspicious enhancing left renal masses or lesions. Simple appearing exophytic and parapelvic renal cysts, similar compared to prior exam. The bladder is unremarkable. The seminal vesicles, prostate, and imaged external genitalia are unremarkable. No bowel obstruction. There are a few loops of mild circumferential wall thickening in the small bowel of the left abdomen, suggestive of enteritis. Few colonic diverticula without CT evidence of acute diverticulitis. No pathologically enlarged lymph nodes throughout the abdomen or pelvis. Moderate calcified and noncalcified atherosclerosis of the aortoiliac system and its branches. 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 The aforementioned ill-defined hypoattenuating pancreatic lesion is in close proximity to the portal vein Soft tissues/musculoskeletal: No acute abnormality. There are some degenerative changes throughout the spine and pelvis. No suspicious osseous lesions. Impression: 1. There are a few loops of mild circumferential wall thickening in the small bowel of the left abdomen, suggestive of enteritis. 2. New ill-defined hypoattenuating lesion in the proximal pancreatic body/pancreatic head measuring 1.2 x 1.9 x 1.5 centimeters, concerning for pancreatic adenocarcinoma. Recommend further assessment with outpatient CT/MR abdomen with a pancreatic protocol. 3. Questionable subcentimeter low-density right adrenal nodule. This can be further assessed on subsequent CT/MR abdomen. 4. No pathologically enlarged lymph nodes throughout the abdomen or pelvis. 5. Status post right nephrectomy. 6. Additional incidental findings as detailed above, similar compared to prior exam. Please note that all CT scans at this facility use dose modulation, iterative reconstruction, and/or weight-based dosing when appropriate to reduce radiation dose to as low as reasonably achievable. Dictated by Ricardo Matamoros MD @ 05/16/2025 12:39:57 PM (Electronically Signed)
--- OUTSIDE RECORDS SUMMARY | 2025-05-16 11:04 | XMS_ITS | Encounter Summary ---
Author Organization [facility] Address [address] [place] [address] Care Team Providers Care Mixing Pan Tender Name Role Phone Elsewhere, Pcp Primary Care Provider Unavailabl e Reason for Referral * Outpatient (Routine) - ClosedSpecialtyDiagnoses / ProceduresReferred By ContactReferred To ContactOncology Diagnoses Leiomyosarcoma Non Uterine (HCC) Boy Gorman M.D. [address] [place] [address] Phone: tel: fax: [facility] Referral IDStatusReasonStart DateExpiration DateVisits RequestedVisits [id number]/[id number]/ [facility] Encounter Details DateTypeDepartmentCare Team (Latest Contact Info)Byretcbgvto45/25/2025linical Communication Division of Hematology and Medical Oncology [address] [place] [address] Owen Owens R.N. Social History Tobacco UseTypesPacks/DayYears UsedDateSmoking Tobacco: FormerCigarettes0.8102.5 [...] live06/09/2024Sex and Gender InformationValueDate RecordedSex Assigned at ZspdsNcfn69/06/2019 8:03 AM CDTLegal MvhEltx6006/20/2016 5:55 AM PHTHALIC ACID PURIFIER Gender OhonfqtvVnhe48/06/2019 8:03 AM CDTSexual PgydvaidhhpQtbqhavw77/06/2019 8:03 AM CDTdocumented as of this encounter Miscellaneous Notes * Telephone Encounter - Owen Owens R.N. - 05/16/2025 9:15 AM MST Called and spoke with patient regarding symptoms. Patient is currently in the Emergency department for evaluation ALIC ACID PURIFIER documented in this encounter Plan of Treatment DateTypeDepartmentCare Team (Latest Contact Info)Xrteccfkoup31/21/2026 1:45 PM MSTAppointment Department of Radiology, [facility], in [place] [address] [place] [address] Boy Gorman M.D. [address] [place] [address] NameTypePriorityAssociated DiagnosesOrder ScheduleOncology office visit (clinic) Outpatient ReferralRoutine Leiomyosarcoma Non Uterine (HCC) Expected: 02/23/2025, Expires: 05/12/2026documented as of this encounter Visit Diagnoses Diagnosis Leiomyosarcoma Non Uterine (HCC)- Primary documented in this encounter Additional Health Concerns InfectionOnset DateLast IndicatedResolved TimeProtective Hvkhfvnpfub18/10/2025 06/28/2024documented as of this encounter Care Teams Team MemberRelationshipSpecialtyStart DateEnd Date Elsewhere, Pcp PCP - GeneralInternal Medicine09/24/24documented as of this encounter
--- NOTE | 2025-05-16 11:20 | ED.ABDPAIN ---
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 He has been on chemotherapy since then. Was taking Pazopanib up until a couple days ago because he started having nausea vomiting every time he tries to eat. Was unable to eat anything for comfort grade so they stopped taking the chemo pills. He continued to have nausea and vomiting along with lower quadrant abdominal pain. Was concerned he was constipated because he has not had a bowel movement in 3 days. Prior to that he states his bowel movements but normal and he has not noticed any blood in his stool. Denies any dysuria. Was not able to eat for a few days due to the nausea and vomiting but states today his symptoms improved along with the pain. Was able to eat small amount this morning without any vomiting he states the nausea is relatively minimal right now. Has been using Zofran at home. He states that not seem to work at all the prior few days. He states as far as the arm where the cancer did not affect his GI tract at all. Has not had any fevers, chills, chest pain, shortness of breath, headache, lightheadedness, dizziness. No other concerns noted at this time. Related Data Home Medications ?Medication ?Instructions ?Recorded ?Confirmed acetaminophen 500 mg tablet 500 mg PO Q6H PRN 01/13/24 05/16/25 (Tylenol Extra Strength) diphenhydramine 25 1 tab PO QHS PRN 09/29/24 05/16/25 mg-acetaminophen 500 mg tablet (Tylenol PM Extra Strength) Previous Rx's ?Medication ?Instructions ?Recorded carvedilol 6.25 mg tablet 6.25 mg PO BID #180 tabs 07/21/24 clonidine 0.2 mg/24 hr weekly 1 patch transdermal QWEEK #12 ea 10/27/24 transdermal patch rivaroxaban 20 mg tablet (Xarelto) 20 mg PO QDAY #90 tabs 10/27/24 amlodipine 2.5 mg tablet 5 mg (2 x 2.5 mg) PO .hs #90 tabs 01/12/25 pazopanib 200 mg tablet 400 mg (2 x 200 mg) PO .COMPLEX 02/28/25 #60 tabs atorvastatin 10 mg tablet 10 mg PO QDAY #90 tabs 03/14/25 ondansetron 4 mg disintegrating 4 mg PO Q8H PRN nausea and 05/05/25 tablet vomiting #45 tabs prochlorperazine maleate 5 mg 5 mg PO TID PRN nausea and 05/05/25 tablet (Compazine) vomiting #60 tabs Allergies Allergy/AdvReac Type Severity Reaction Status Date / Time mold Allergy Intermediate throat Verified 05/16/25 10:23 swelling ragweed pollen Allergy Verified 05/16/25 10:23 Review of Systems Status of ROS Reports: 10 or more systems reviewed and unremarkable except as noted in History and below [facility] Medical History GERD (gastroesophageal reflux disease) ?K21.9 - Gastro-esophageal reflux disease without esophagitis (ICD-10) Rash ?R21 - Rash and other nonspecific skin eruption (ICD-10) Living will on file History of smoking ?Z87.891 - Personal history of nicotine dependence (ICD-10) Health care directive on file ?Z78.9 - Other specified health status (ICD-10) Seasonal allergies ?J30.2 - Other seasonal allergic rhinitis (ICD-10) History of pulmonary embolism (12/2021) ?Z86.711 - Personal history of pulmonary embolism (ICD-10) Osteoarthritis of right knee ?M17.11 - Unilateral primary osteoarthritis, right knee (ICD-10) Osteoarthritis of left knee ?M17.12 - Unilateral primary osteoarthritis, left knee (ICD-10) Hyperlipidemia ?E78.5 - Hyperlipidemia, unspecified (ICD-10) 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) ?C48.0 - Malignant neoplasm of retroperitoneum (ICD-10) Hypertension ?I10 - Essential (primary) hypertension (ICD-10) Surgical History History of sinus surgery ?Z98.890 - Other specified postprocedural states (ICD-10) History of vasectomy ?Z98.52 - Vasectomy status (ICD-10) History of colonoscopy ?Z98.890 - Other specified postprocedural states (ICD-10) History of right nephrectomy (04/01/22) ?Z90.5 - Acquired absence of kidney (ICD-10) History of superior vena cava filter placement ?Z95.828 - Presence of other vascular implants and grafts (ICD-10) Family History Father Heart disease High blood pressure Social History Narrative: with 2 daughters and 2 grandsons. 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. What is your current living situation?: I presently have a place to live Problems where you live: no known problems In the past 12 months, utilities in danger of being shut off: no In past 12 months, lack of transportation kept you from medical appts, meetings, work, or getting things needed for daily living: no In the past 12 mos, have been you worried that your food would run out before you had money to buy more?: never true In the past 12 mos, the food you bought just didn't last and you didn't have money to buy more?: never true Smoking Status: Former smoker How often do you have a drink containing alcohol: never AUDIT-C Alcohol total score: 0 Non-prescribed substance use: denies use Caffeine: Yes How often does anyone, including family, friends and others, physically hurt you: never How often does anyone, including family, friends and others, insult or talk down to you: never How often does anyone, including family, friends and others, threaten you with harm: never How often does anyone, including family, friends and others, scream or curse at you: never Exam Narrative: Exam Narrative: Const: Well-nourished, Well-developed, in mild distress Eyes: PERRL, no conjunctival injection, and symmetrical lids HENT: Atraumatic external nose and ears. Moist mucous membranes. Neck: Symmetric, trachea midline, No thyromegaly. CVS: RRR, No murmurs or gallops. Peripheral pulses 2+ and equal in all extremities RESP: Unlabored respiratory effort. Clear to auscultation bilaterally. GI: Left lower quadrant tenderness, Nondistended, No rebound or guarding. MSK:Extremities w/o deformity, Normal Active ROM Skin: Warm, Dry. There is darker spots seen throughout his abdomen that he states has always been there but there also several purplish appearing spots throughout his abdomen that he states are new. Neuro: Normal Muscle tone, No focal neurological deficits. Psych: Awake, Alert, & Oriented x3. Appropriate mood and affect. Const: Vital Signs, click to edit/add: Vital Signs - 24 hr 05/16/25 10:14 Temperature 97.8 F Pulse Rate [Pulse Oximeter] 81 Respiratory Rate 16 Blood Pressure [Ri t Upper Arm] 148/101 H Pulse Oximetry 98 Oxygen Delivery Me thod Room Air Course Vital Signs Vital signs: Initial Vital Signs Temperature 97.8 F 05/16/25 10:14 Temperature Source Temporal Artery Scan 05/16/25 10:14 Pulse Rate 81 05/16/25 10:14 Respiratory Rate 16 05/16/25 10:14 Blood Pressure 148/101 H 05/16/25 10:14 Blood Pressure Mean 116 H 05/16/25 10:14 Blood Pressure Position Sitting 05/16/25 10:14 Pulse Oximetry 98 05/16/25 10:14 Oxygen Delivery Method Room Air 05/16/25 10:14 Vital Signs Temperature 97.8 F 05/16/25 10:14 Pulse Rate 81 05/16/25 10:14 Respiratory Rate 16 05/16/25 10:14 Blood Pressure 148/101 H 05/16/25 10:14 Pulse Oximetry 98 05/16/25 10:14 Oxygen Delivery Method Room Air 05/16/25 10:14 Temperature 97.8 F 05/16/25 10:14 Pulse Rate 81 05/16/25 10:14 Respiratory Rate 16 05/16/25 10:14 Blood Pressure 148/101 H 05/16/25 10:14 Pulse Oximetry 98 05/16/25 10:14 Oxygen Delivery Method Room Air 05/16/25 10:14 Medications Administered Medications: Discontinued Medications Generic Name Dose Route Start Last Admin Trade Name Freq PRN Reason Stop Dose Admin Docusate Sodium/Benzocaine 5 ml 05/16/25 13:05 05/16/25 13:12 Docusate Sodium/Benzocaine 5 Ml Enema HI 05/16/25 13:06 5 ml ONCE ONE Administration Sodium Chloride 1,000 mls @ 1,000 mls/hr 05/16/25 12:15 05/16/25 12:21 0.9 % Sodium Chloride 1000 Ml IV 05/16/25 13:14 1,000 mls/hr .Q1H LISA Administration MDM - Abdominal Pain MDM Narrative Medical decision making narrative: Patient is a 79-year-old male presenting for left lower quadrant abdominal pain. Differential at this time includes constipation, diverticulitis, UTI, urolithiasis. Will do CT scan for better evaluation. Will also order CBC, viral swabs, lipase, CMP, magnesium, urinalysis. He declines any pain or nausea medication at this time. With the response to do is 1 appear like petechiae but cannot say for certain. CBC will look for thrombocytopenia. The spots are only seen on the abdomen. He is unsure if his chemotherapy drug cause thrombocytopenia. Patients lab work returned showing a non concerning CBC. His platelet count is actually at the highest it has been in over year at 157. Does not have thrombocytopenia. His CMP shows a sodium of 127 and a chloride of 92. One beats per eyes is dehydration from on his vomiting. Will give him a L of normal saline. Present functions are within normal limits other than a total bilirubin of 1.7. Direct bilirubin 0.5. Lipase is slightly elevated 366. Viral swabs are negative. CT scan interpreted by myself and the radiologist shows some enteritis on the left with could very well be causing his pain. There is an ill-defined pancreatic lesion. This can follow-up outpatient. I did speak to the patient and his daughter and they state this was previously known about. There is also questionable low-density right adrenal nodule. This can also be follow-up outpatient. The patient and daughter do not remember hearing anything previously about an adrenal nodule. No pathologically enlarged lymph nodes. I do note some moderate amount in the rectal vault that does not appear impacted. Rest of his colon is relatively nondistended with minimal stool in the colon. No signs of diverticulitis. He does not appear to be overtly constipated but did speak to him about doing a and O my office even helps with symptoms. He would like this done. Enema ordered. He was able to have a bowel movement after this. He states he is feeling a little bit better after. I do believe he is safe for discharge. He is agreeable to this plan. Lab Data Labs: Lab Results 05/16/25 05/16/25 05/16/25 Range/Units 11:00 11:25 12:09 WBC 6.97 (4.50-11.00) K/uL RBC 4.18 L (4.30-5.90) m/uL Hgb 14.6 (13.5-17.5) gm/dL Hct 41.6 (37.0-53.0) % MCV 100 (80-100) fL MCH 35 H (26-34) pg MCHC 35 (32-36) gm/dL RDW Coeff of Veronica 14.9 (11.5-15.5) % Plt Count 157 (140-440) K/uL Neut % (Auto) 71.7 (42.0-72.0) % Lymph % (Auto) 19.2 L (20-44) % [place] % (Auto) 8.3 (0.0-11.0) % Eos % (Auto) 0.7 (0.0-7.0) % Baso % (Auto) 0.0 (0.0-3.0) % Neut # (Auto) 4.99 (1.7-7.0) K/uL Lymph # (Auto) 1.30 (0.90-2.90) K/uL [place] # (Auto) 0.60 (0.00-0.90) K/UL Eos # (Auto) 0.05 (0.00-0.50) K/uL Baso # (Auto) 0.00 (0.00-0.30) K/uL Abs Immat Gran (auto) 0.01 (0.00-0.30) K/uL Imm/Tot Granulo (auto) 0.1 % Sodium 127 L (135-149) mmol/L Potassium 4.1 (3.6-5.1) mmol/L Chloride 92 L (96-114) mmol/L Carbon Dioxide 26 (20-32) mmol/L Anion Gap 9 (7-15) mEq/L BUN 25 (7-30) mg/dL Creatinine 0.9 (0.5-1.5) mg/dL Estimated Creat Clear 57.84 Estimated GFR 88 ml/min Glucose 131 H (60-115) mg/dL Calcium 8.8 (8.4-10.6) mg/dL Magnesium 2.3 (1.5-2.6) mg/dL Total Bilirubin 1.7 H (0.1-1.5) mg/dL Direct Bilirubin 0.5 (0.0-0.5) mg/dL AST 21 (12-35) U/L ALT 25 (4-50) U/L Alkaline Phosphatase 52 (40-150) U/L Total Protein 6.1 (6.0-8.3) g/dL Albumin 4.0 (3.3-5.0) g/dL Lipase 366 H (23-300) U/L SARS-CoV-2 (PCR) Negative SARS-CoV-2 (Negative) Influenza Type A (PCR) Negative PCR FLU A (Negative) Influenza Type B (PCR) Negative PCR FLU B (Negative) RSV (PCR) Negative PCR RSV (Negative) Lab Acknowledgement Test Added POC Creatinine 1.0 (0.6-1.3) mg/dl Imaging Data CT scan abdomen and pelvis: Attestation: I have reviewed the pertinent imaging results. Radiologist's impression: 1. There are a few loops of mild circumferential wall thickening in the small bowel of the left abdomen, suggestive of enteritis. 2. New ill-defined hypoattenuating lesion in the proximal pancreatic body/pancreatic head measuring 1.2 x 1.9 x 1.5 centimeters, concerning for pancreatic adenocarcinoma. Recommend further assessment with outpatient CT/MR abdomen with a pancreatic protocol. 3. Questionable subcentimeter low-density right adrenal nodule. This can be further assessed on subsequent CT/MR abdomen. 4. No pathologically enlarged lymph nodes throughout the abdomen or pelvis. 5. Status post right nephrectomy. 6. Additional incidental findings as detailed above, similar compared to prior exam. Please note that all CT scans at this facility use dose modulation, iterative reconstruction, and/or weight-based dosing when appropriate to reduce radiation dose to as low as reasonably achievable. Dictated by Ricardo Matamoros MD @ 05/16/2025 12:39:57 PM Discharge Plan Discharge Clinical Impression: Enteritis, Left sided abdominal pain Patient Disposition: Home, Self-Care Condition: Stable Instructions: Enteritis (ED) Additional Instructions: CT scan was consistent for enteritis. Overall you were not overtly constipated. I do recommend continuing to use the Zofran for your nausea. Zofran can cause constipation for some people so also recommend using stool softeners until your bowel movements are back to normal. Also recommend talking to your oncology provider about your medications. Also speak to them about the pancreatic an adrenal gland lesions. Prescriptions: No Action acetaminophen [Tylenol Extra Strength] 500 mg tablet 500 mg PO Q6H PRN diphenhydramine-acetaminophen [Tylenol PM Extra Strength] 25-500 mg tablet 1 tab PO QHS PRN clonidine 0.2 mg/24 hr patch weekly 1 patch transdermal QWEEK Qty: 12 3RF Xarelto 20 mg tablet 20 mg PO QDAY Qty: 90 2RF Rx Instructions: must administer with evening meal carvedilol 6.25 mg tablet 6.25 mg PO BID Qty: 180 3RF Rx Instructions: must administer with a meal/food amlodipine 2.5 mg tablet 5 mg PO .hs Qty: 90 3RF pazopanib 200 mg tablet 400 mg PO .COMPLEX Qty: 60 0RF Rx Instructions: 400 mg oral daily, (2 tabs of 200mg each.) atorvastatin 10 mg tablet 10 mg PO QDAY Qty: 90 3RF ondansetron 4 mg tablet,disintegrating 4 mg PO Q8H PRN (Reason: nausea and vomiting) Qty: 45 0RF prochlorperazine maleate [Compazine] 5 mg tablet 5 mg PO TID PRN (Reason: nausea and vomiting) Qty: 60 1RF Follow Up/Referrals: Pascual Cormier MD [Primary Care Provider, Internal Medicine] [facility]
[2025-05-16 11:31] LABS: Hematocrit* 41.6 % (37.0-53.0); Hemoglobin* 14.6 gm/dL (13.5-17.5); Immature Granulocytes Abs Auto 0.01 K/uL (0.00-0.30); Immature Granulocytes Pct Auto 0.1 %; Mean Corpuscular HGB Conc 35 gm/dL (32-36); Mean Corpuscular Hemoglobin 35 pg (26-34); Mean Corpuscular Volume 100 fL (80-100); RDW Coefficient of Variation % 14.9 % (11.5-15.5); Red Blood Count* 4.18 m/uL (4.30-5.90); White Blood Count* 6.97 K/uL (4.50-11.00)
[2025-05-16 11:35] LABS: Lymphocytes Absolute Auto 1.30 K/uL (0.90-2.90)
[2025-05-16 11:36] LABS: Slide Review Reflex No
[2025-05-16 11:37] LABS: Creatinine, Point-of-Care* 1.0 mg/dl (0.6-1.3)
[2025-05-16 11:49] LABS: Albumin* 4.0 g/dL (3.3-5.0); Chloride* 92 mmol/L (96-114)
[2025-05-16 11:50] LABS: Potassium* 4.1 mmol/L (3.6-5.1); Sodium* 127 mmol/L (135-149)
[2025-05-16 11:52] LABS: Alanine Aminotransferase* 25 U/L (4-50); Anion Gap 9 mEq/L (7-15); Aspartate Amino Transferase* 21 U/L (12-35); Blood Urea Nitrogen* 25 mg/dL (7-30); Carbon Dioxide* 26 mmol/L (20-32); Creatinine* 0.9 mg/dL (0.5-1.5); Est. Creatinine Clearance* 57.84; Estimated Glomerular Filt Rate 88 ml/min
[2025-05-16 11:53] LABS: Alkaline Phosphatase* 52 U/L (40-150); Bilirubin Total* 1.7 mg/dL (0.1-1.5); Calcium* 8.8 mg/dL (8.4-10.6); Glucose* 131 mg/dL (60-115); Total Protein* 6.1 g/dL (6.0-8.3)
[2025-05-16 12:08] LABS: PCR FLU A Negative PCR FLU A (Negative); PCR FLU B Negative PCR FLU B (Negative); PCR RSV Negative PCR RSV (Negative); SARS PCR* Negative SARS-CoV-2 (Negative)
[2025-05-16 12:36] LABS: Bilirubin Direct* 0.5 mg/dL (0.0-0.5)
[2025-05-16] MEDS: DOCUSATE SODIUM/BENZOCAINE 5 ML ENEMA PR (13:12)
[2025-05-16] MEDS: HEPARIN 500 UNIT/5 ML SYRINGE IVF (13:57)
== END 2025-05-16 13:57 | disposition home or self-care (01) ==
PROVIDERS: Emergency Provider Student in an Organized Health Care Education/Training Program; PCP Internal Medicine
DX: R10.32 Left lower quadrant pain (principal); K52.9 Noninfective gastroenteritis and colitis, unspecified
CPT/HCPCS: 36415; 74177; 80053; 81001; 82248; 82565; 83690; 83735; 85025; 87631; 96360; 99284; 99285; A9270; J1642; J7030; Q9967